=== PATIENT | male | born 1930 | race Caucasian/White ===

== ENCOUNTER 2016-02-26 13:00 | Outpatient (RCR) | payer MEDICARE, OTHER | END 2016-03-08 | LOC: M CR 13:00 | PROVIDERS: ATTEND Internal Medicine Cardiovascular Disease | DX: Z98.61 Coronary angioplasty status (principal) ==

== ENCOUNTER 2017-11-08 07:34 | Outpatient (CLI) | payer MEDICARE, OTHER ==
[2017-11-08] MEDS: IRON SUCROSE 25 MG in NS 50 ML IV (08:00)
[2017-11-08] MEDS: IRON SUCROSE 375 MG in NS 250 ML IV (09:28)
== END 2017-11-08 13:50 | disposition home or self-care (01) ==
LOC: M INFU 07:34
DX: D50.9 Iron deficiency anemia, unspecified (principal)
CPT/HCPCS: J1756

== ENCOUNTER → 2017-12-14 | Outpatient (REF) | payer MEDICARE, OTHER ==
[2017-12-15 14:37] LABS: FERRITIN 359 NG/ML (26-388); FOLATE > 24.0 NG/ML; IRON (FE) 35 UG/DL (65-175); PERCENT SATURATION 15.2 % (19.7-50.0); TOTAL IRON BINDING CAPACITY 230 UG/DL (250-450)
[2017-12-15 14:59] LABS: VITAMIN B12 LEVEL 755 PG/ML
== END ==
LOC: M LAB REF 13:02
DX: D50.9 Iron deficiency anemia, unspecified (principal)
CPT/HCPCS: 82746

== ENCOUNTER → 2017-12-19 | Outpatient (CLI) | payer MEDICARE, OTHER | LOC: M RAD 12:45 | DX: Z01.818 Encounter for other preprocedural examination (principal); N17.9 Acute kidney failure, unspecified; I12.9 Hypertensive chronic kidney disease with stage 1 through stage 4 chronic kidney disease, or unspecified chronic kidney disease; R60.0 Localized edema; N18.9 Chronic kidney disease, unspecified | CPT/HCPCS: G0365 ==

== ENCOUNTER 2018-01-05 07:12 | Outpatient (CLI) | payer MEDICARE, OTHER ==
[2018-01-05] MEDS: IRON SUCROSE 25 MG in NS 50 ML IV (07:54)
[2018-01-05] MEDS: IRON SUCROSE 375 MG in NS 250 ML IV (08:51)
== END 2018-01-05 12:20 | disposition home or self-care (01) ==
LOC: M INFU 07:12
DX: D50.9 Iron deficiency anemia, unspecified (principal); N17.9 Acute kidney failure, unspecified; E11.22 Type 2 diabetes mellitus with diabetic chronic kidney disease; I12.9 Hypertensive chronic kidney disease with stage 1 through stage 4 chronic kidney disease, or unspecified chronic kidney disease; M1A.30X0 Chronic gout due to renal impairment, unspecified site, without tophus (tophi); N25.81 Secondary hyperparathyroidism of renal origin; R60.0 Localized edema; Z79.2 Long term (current) use of antibiotics; Z79.4 Long term (current) use of insulin; Z79.01 Long term (current) use of anticoagulants; Z79.891 Long term (current) use of opiate analgesic; Z79.899 Other long term (current) drug therapy; Z88.0 Allergy status to penicillin; Z88.8 Allergy status to other drugs, medicaments and biological substances
CPT/HCPCS: J1756

== ENCOUNTER → 2018-03-07 | Outpatient (CLI) | payer MEDICARE, OTHER ==
[~2018-03-07] MED LIST: ALLO100T PO; ASPI81TA85 PO; CALC1CAP31 PO; CALTCHW5 PO; CARV25TA PO; ELIQ2.5T PO; EZET10TA PO; GLIP2.5T6 PO; INSUHUMDS SC; IRON27TA2 PO; LOSA25TA14 PO; MULTCAP PO; SIMV40TA2 PO; TORS20TA2 PO
--- NOTE | 2018-03-07 11:52 | REP ---
Clinical: Cough. Technique: PA and lateral. Comparison: None. Findings: Cardiomegaly with evidence for prior pacemaker, sternotomy, CABG, and aortic valve stent repair. The lung anthony demonstrate diffuse increased interstitial markings with indistinct central pulmonary vasculature suggesting the possibility of pulmonary vascular congestion and interstitial edema. Basilar atelectasis cannot be excluded. No effusion or pneumothorax. Skeletal structures are grossly intact. Impression: Cardiomegaly and chronic appearing changes. Superimposed pulmonary vascular congestion/interstitial edema suspected. Electronically Signed by Jesús Burton MD 03/07/2018 11:43 A
== END ==
LOC: M SMT 11:28
PROVIDERS: ATTEND Internal Medicine Nephrology
DX: N18.4 Chronic kidney disease, stage 4 (severe) (principal); R60.0 Localized edema; R05 Cough

== ENCOUNTER 2018-04-17 09:28 | Day surgery (SDC) | payer MEDICARE, OTHER ==
[~2018-04-17] VITALS: Ht 167.6 cm; Wt 75.7 kg
[~2018-04-17 09:28] MED LIST changes: +IRON1TAB PO; +NS 1,000 ML IV ONE; +VITATAB11 PO
--- NOTE | 2018-04-17 11:31 | ROOR ---
Patient Name: Shaheed Lee Procedure Date: 04/17/2018 11:13 AM Date of : 1930 Age: 87 Room: [facility] Gender: Male Note Status: Finalized Procedure: Upper GI endoscopy Indications: Iron deficiency anemia Providers: Jerry PINA MD Referring MD: YOBANI WHITAKER MD Requesting Provider: Medicines: Monitored Anesthesia Care Complications: No immediate complications. Procedure: Pre-Anesthesia Assessment: - The heart rate, respiratory rate, oxygen saturations, blood pressure, adequacy of pulmonary ventilation, and response to care were monitored throughout the procedure. The Endoscope was introduced through the mouth, and advanced to the second part of duodenum. The upper GI endoscopy was accomplished without difficulty. The patient tolerated the procedure well. Findings: One mild (non-circumferential scarring) stenosis was found at the gastroesophageal junction. This stenosis measured 1 cm (in length). The stenosis was traversed. This was biopsied with a cold forceps for histology. Moderately severe esophagitis was found at the gastroesophageal junction. Biopsies were taken with a cold forceps for histology. A small hiatal hernia was present. The entire examined stomach was normal. The examined duodenum was normal. Impression: - Moderately severe reflux esophagitis with mild to moderate esophageal stenosis. Biopsied. Rule out Rodriguez's esophagus. Biopsied. - Small hiatal hernia. - Normal stomach. - Normal examined duodenum. Recommendation: - Use Prilosec (omeprazole) 40 mg PO daily. - Telephone endoscopist for pathology results in 2 weeks. Jerry Pina MD Jerry PINA MD 04/17/2018 11:31:24 AM This report has been signed electronically. Number of Addenda: 0 Note Initiated On: 04/17/2018 11:13 AM Estimated Blood Loss: Estimated blood loss: none.
[2018-04-17] MEDS ORDERED: LIDOCAINE 2% INJ 100 MG/5 ML SDV (FOR ANES.) As Ordered ONE (11:38)
[2018-04-17] MEDS ORDERED: PROPOFOL 500 MG/50 ML VIAL As Ordered ONE (11:38)
--- NOTE | 2018-04-17 11:50 | ROOR ---
Patient Name: hSaheed Lee Procedure Date: 04/17/2018 11:14 AM Date of : 1930 Age: 87 Room: [facility] Gender: Male Note Status: Finalized Procedure: Colonoscopy Indications: Heme positive stool, Iron deficiency anemia (possible). Low TIBC Providers: Jerry PINA MD Referring MD: YOBANI WHITAKER MD Requesting Provider: Medicines: Monitored Anesthesia Care Complications: No immediate complications. Procedure: Pre-Anesthesia Assessment: - The heart rate, respiratory rate, oxygen saturations, blood pressure, adequacy of pulmonary ventilation, and response to care were monitored throughout the procedure. The Colonoscope was introduced through the anus and advanced to the cecum, identified by appendiceal orifice and ileocecal valve. The colonoscopy was performed without difficulty. The patient tolerated the procedure well. The quality of the bowel preparation was good. Findings: The perianal and digital rectal examinations were normal. A 5 mm polyp was found in the splenic flexure. The polyp was sessile. The polyp was removed with a cold snare. Resection and retrieval were complete. Mild sigmoid diverticulosis and small internal hemorrhoids. Localized mild mucosal changes were found in the distal rectum. The exam was otherwise without abnormality on direct and retroflexion views. Impression: - One 5 mm polyp at the splenic flexure, removed with a cold snare. Resected and retrieved. - Mild sigmoid diverticulosis and small internal hemorrhoids. - Minimal radiation proctitis. - The colon examination was otherwise normal on direct and retroflexion views. Recommendation: - Resume Eliquis (apixaban) at prior dose today. Refer to managing physician for further adjustment of therapy. Jerry Pina MD Jerry PINA MD 04/17/2018 11:49:57 AM This report has been signed electronically. Number of Addenda: 0 Note Initiated On: 04/17/2018 11:14 AM Estimated Blood Loss: Estimated blood loss: none.
[2018-04-17 12:20] VITALS: BP 132/67
== END 2018-04-17 12:22 | disposition home or self-care (01) ==
LOC: M OPP 09:28
PROVIDERS: ATTEND Internal Medicine Gastroenterology
DX: D12.6 Benign neoplasm of colon, unspecified (principal); K62.7 Radiation proctitis; R19.5 Other fecal abnormalities; D50.9 Iron deficiency anemia, unspecified; K57.30 Diverticulosis of large intestine without perforation or abscess without bleeding; K22.2 Esophageal obstruction; K21.0 Gastro-esophageal reflux disease with esophagitis; K44.9 Diaphragmatic hernia without obstruction or gangrene; I25.2 Old myocardial infarction; Z79.899 Other long term (current) drug therapy; Z80.0 Family history of malignant neoplasm of digestive organs; Z95.0 Presence of cardiac pacemaker; Z95.4 Presence of other heart-valve replacement

== ENCOUNTER 2018-04-19 15:40 | Inpatient (IN) | payer MEDICARE, OTHER ==
[~2018-04-19] VITALS: Ht 170.2 cm; Wt 77.3 kg
[~2018-04-19 15:40] MED LIST changes: -NS 1,000 ML IV ONE
[2018-04-19] MEDS ORDERED: OMEP-218 PO (15:59)
[2018-04-19 16:58] LABS: HEMATOCRIT 31.4 % (42.0-52.0); HEMOGLOBIN 10.1 g/dl (13.5-17.5); MEAN CORPUSCULAR HEMOGLOBIN 31.7 pg (27.0-33.0); MEAN CORPUSCULAR HGB CONC 32.2 g/dl (32.0-36.5); MEAN CORPUSCULAR VOLUME 98.4 fl (80.0-96.0); PLATELET COUNT, AUTOMATED 134 10^3/uL (150-450); RED BLOOD COUNT 3.19 10^6/uL (4.30-6.10); WHITE BLOOD COUNT 17.4 10^3/uL (4.0-10.0)
[2018-04-19 17:04] LABS: INR 1.7; PROTHROMBIN TIME 20.3 SECONDS (12.1-14.4)
[2018-04-19 17:06] LABS: ALBUMIN 3.3 GM/DL (3.2-5.2); BILIRUBIN,DIRECT 0.2 MG/DL (0.0-0.2); BILIRUBIN,TOTAL 0.5 MG/DL (0.2-1.0); CALCIUM LEVEL 8.3 MG/DL (8.8-10.2); CREATININE FOR GFR 7.54 MG/DL (0.70-1.30); GLOMERULAR FILTRATION RATE 7.3 (>35); POTASSIUM SERUM 4.7 MEQ/L (3.5-5.1); TOTAL PROTEIN 6.3 GM/DL (6.4-8.2)
[2018-04-19 17:41] LABS: ANISOCYTOSIS 2+; ATYPICAL LYMPH 1 % (0-5); EOSINOPHILS 2 % (0-5); MONOCYTES 1 % (0-8); MYELOCYTES 1 % (0-0); NEUTROPHILS 75 % (35-75); PLATELET ESTIMATE DECREASED (NORMAL); TOXIC VACUOLATION 1+
[2018-04-19 17:42] LABS: POIKILOCYTOSIS 1+
[2018-04-19 17:43] LABS: POLYCHROMASIA 1+
[2018-04-19] MEDS ORDERED: ONDANSETRON 4MG/2ML VIAL (J2405) IV ONE (17:45)
[2018-04-19] MEDS: NS 1,000 ML IV SCH ×3 (17:50→18:22)
--- NOTE | 2018-04-19 18:15 | REP ---
PA and lateral chest: Comparison is 03/07/2018. There is chronic cardiomegaly, unchanged. There is a dual-chamber pacemaker, unchanged. There are sternotomy wires, unchanged. There has been transcatheter replacement of the aortic valve, unchanged. There is chronic interstitial coarsening, unchanged, nonspecific, fibrosis versus chronic vascular engorgement. There is an 80 mm noncalcified nodule in the apex of the left lung. Consider chest CT for further evaluation. Impression: Chronic findings as described. 8 mm left upper lobe lung nodule. Consider chest CT for further evaluation. Electronically Signed by Jonathon Porter MD 04/19/2018 06:08 P
[2018-04-19] MEDS ORDERED: LEVOTAB10 PO (18:32)
[2018-04-19] MEDS ORDERED: VITMTA PO (18:32)
[2018-04-19] MEDS ORDERED: CALTTAB5 PO (18:33)
--- NOTE | 2018-04-19 19:29 | ECGEPIP ---
Stationary ECG Study [facility] - ED Test Date: 2018-04-19 Pat Name: PURVI BENITEZ Department: Room: - Gender: M Clinical Nursing Director: [facility] : 1930 Requested By: Rosalia Reeder Order Number: [id number] Reading MD: Abhay Cortez Measurements Intervals [place] Rate: 73 P: 74 ND: 150 QRS: 68 QRSD: 181 T: 251 QT: 532 QTc: 587 Interpretive Statements ELECTRONIC VENTRICULAR PACEMAKER NO PRIORS FOR COMPARISON Electronically Signed On 04-19-2018 19:29:41 EDT by Abhay Cortez
[2018-04-19] MEDS ORDERED: GLUCAGON FOR INJ 1 MG VIAL (J1610) SC PRN (21:00)
[2018-04-19] MEDS ORDERED: GLUCOSE 4 GM CHEW TABLET PO PRN (21:00)
[2018-04-19] MEDS ORDERED: CARVedilol 12.5 MG TAB PO SCH (21:00)
[2018-04-19] MEDS ORDERED: DEXTROSE 50% 50 ML SYRINGE IV PRN (21:00)
[2018-04-19] MEDS ORDERED: ONDANSETRON 4MG/2ML VIAL (J2405) IV PRN (21:15)
--- NOTE | 2018-04-19 21:26 | REPVR ---
EXAM: US Retroperitoneal Limited, Kidneys EXAM DATE/TIME: 04/19/18 (8:26pm) CLINICAL HISTORY: 87 year old male with abnormal renal function tests. Renal failure. TECHNIQUE: Real-time ultrasound of the retroperitoneum with image documentation. Examination was focused on the kidneys. COMPARISON: US RENAL of 01/25/12 FINDINGS: RIGHT KIDNEY --- The right kidney measures 9.3 cm in length. No hydronephrosis is noted. Echogenic texture. No upper tract stones are identified. Two renal cysts --- Large simple lower pole cyst (3.9 x 3.5 x 4.0 cm size) (3.8 cm avg. size) Small lower pole cyst (7 x7 x 6 mm size) LEFT KIDNEY --- The left kidney measures 11.5 cm in length. No hydronephrosis is noted. Echogenic texture. No upper tract stones are identified. URINARY BLADDER --- Carrion in place. Not distended. IMPRESSION: No acute pathology. No hydronephrosis. The right kidney is slightly smaller than the left kidney. 2 simple right lower renal pole cysts. Carrion catheter in place. Electronically signed by: Carmen Powell On 04/19/2018 21:26:24 PM
--- NOTE | 2018-04-19 22:16 | REPVR ---
EXAM: CT Chest Without Contrast EXAM DATE/TIME: 04/19/18 (10:05pm) CLINICAL HISTORY: 87 year old male. Lung nodule. TECHNIQUE: Axial computed tomography images of the chest without intravenous contrast. All CT scans at this facility use at least one of these dose optimization techniques: automated exposure control; mA and/or kV adjustment per patient size (includes targeted exams where dose is matched to clinical indication); or iterative reconstruction. Coronal and sagittal reformatted images were created and reviewed. MIP reconstructed images were created and reviewed. COMPARISON: Chest films of 04/19/18 FINDINGS: Lungs: No consolidation. Small calcified GARRET granuloma, posterolaterally. No significant lung mass nor nodule is appreciated. Pleural space: No pneumothorax. Minimal bilateral pleural effusions. Heart: Moderate ardiomegaly. Cardiac electrodes in place. No pericardial effusion. Stent graft in the proximal ascending thoracic aorta. Aorta: Normal. No aortic aneurysm. Lymph nodes: Unremarkable. No enlarged lymph nodes. Bones/joints: No acute fracture. Previous sternotomy. Soft tissues: Unremarkable. IMPRESSION: No acute findings. No significant pulmonary nodule nor mass. Cardiomegaly. Proximal aortic stent graft. Cardiac electrodes in place. Electronically signed by: Carmen Powell On 04/19/2018 22:16:27 PM
[2018-04-19 23:35] VITALS: BP 105/54
[2018-04-20] MEDS: APIXABAN 2.5 MG TAB (ELIQUIS) PO SCH ×3 (00:15→21:46)
[2018-04-20] MEDS: SIMVASTATIN 40 MG TAB PO SCH ×2 (00:15→21:47)
[2018-04-20] MEDS: ASPIRIN 81 MG ENTERIC TAB PO SCH ×2 (00:15→21:46)
[2018-04-20] MEDS: OMEPRAZOLE 20 MG CAP PO SCH ×3 (00:15→21:47)
--- NOTE | 2018-04-20 01:15 | HPE ---
DATE OF ADMISSION: 04/19/2018 CHIEF COMPLAINT: Generalized weakness, nausea, oliguric for the past 24 to 48 hours. HISTORY OF PRESENT ILLNESS: The patient is an 87-year-old male with significant past medical history of coronary artery disease (CAD) status post coronary artery bypass grafting (CABG), diabetes, gastroesophageal reflux disease (GERD), Rodriguez's esophagus, atrial fibrillation (AFib) status post pacemaker on Eliquis, gout and hypertension. The patient recently had a and esophagogastroduodenoscopy (EGD) and colonoscopy four days ago. Over the past two days he has produced very little urine. He has felt generalized weakness, an episode of nonbloody, nonbilious vomiting. He presented to his primary care provider who noted his creatinine was 7, sent him to the emergency room (ER) for abnormal laboratories. His baseline creatinine is unknown. However, the patient had a similar episode in the past when he had a hernia repair and was hypotensive post procedure and developed subsequent acute tubular necrosis (ATN) needing dialysis for a week back several years ago. Upon presentation to the emergency room to see his primary care provider the patient's blood pressure was noted to be in the 80s/60s. He denies any cough, chest pain, shortness of breath, abdominal pain. He did have an episode of diarrhea this morning as well per the patient. He appears to be in oliguric renal failure possibly secondary to acute tubular necrosis (ATN) versus acute interstitial nephritis (AIN). The patient states during the last episode he also had a rash. He has not had any fevers but he does have a diffuse rash again. The rash is sort of chronic. He was on prednisone which was stopped for his procedure as his sugars were uncontrolled with the prednisone and the rash recurred after discontinuation of the prednisone. At that point in time the differential is oliguric renal failure possibly secondary to acute tubular necrosis (ATN) versus acute interstitial nephritis (AIN). Will rule out a urinalysis (UA). PAST MEDICAL HISTORY: See history of the present illness (HPI). PAST SURGICAL HISTORY: 1. Coronary artery disease (CAD) status post coronary artery bypass grafting (CABG). 2. Aortic valve repair. 3. Pacemaker placement. HOME MEDICATIONS: Include: - torsemide - allopurinol - glipizide - iron - Eliquis - aspirin - calcitriol - Coreg - Zetia - omeprazole - Zocor ALLERGIES: To PENICILLINS and PRASUGREL. SOCIAL HISTORY: He is a former smoker. Denies alcohol or illicit drug use. FAMILY HISTORY: Family history of diabetes and coronary artery disease. REVIEW OF SYSTEMS: A 12-point review of systems was completed, all of which were negative except those listed in the history of the present illness. VITAL SIGNS ON ADMISSION: Temperature 97, pulse 75, respirations 20, blood pressure 94/49, saturating at 98% on room air. PHYSICAL EXAMINATION: General: He is well nourished, in no apparent distress. Head is normocephalic, atraumatic. Eyes: Extraocular movements are intact. Pupils equal, round, reactive to light. Neck is supple. No jugular venous pressure (JVP). Lungs: Clear to auscultation. No crackles, wheezes, rales or rhonchi. Cardiovascular: Regular rate and rhythm. Normal S1, S2. No murmurs, gallops, or rubs. Skin: Intact. No rashes, lesions or breakdown. Neurological: Alert and oriented (A and O) times three. No focal deficits appreciated on examination. Abdomen: Soft, nontender, nondistended, positive bowel sounds. No rebound or guarding. Extremities: No pitting edema or calf tenderness. LABORATORIES AND IMAGING COMPLETED IN THE EMERGENCY ROOM: His white blood cell (WBC) shows a white count of 17, hemoglobin and hematocrit (H and H) of 10/31, platelet count of 134. Coagulation panel (coags): INR of 1.7. Chemistries: Sodium 133, chloride 94, BUN and creatinine 94/7.5, baseline creatinine is unknown. Bicarbonate of 27. Liver function tests (LFTs) within normal limits. Urine osmolality of 324. Chest x-ray shows chronic findings: An 8 mm left upper lobe nodule. Renal ultrasound pending. ASSESSMENT AND PLAN: 1. Oliguric renal failure possibly secondary to acute tubular necrosis (ATN) versus acute interstitial nephritis (AIN) with a rash versus possible rule out urinary tract infection (UTI). Will send a urinalysis (UA), urine electrolytes, sodium, potassium, chloride, urine eosinophils. Will hold all blood pressure medications. Will hold torsemide for now. Will fluid hydrate. Will send a uric acid. Will get a renal consult in the a.m. in case the patient does require dialysis. Will hold all nephrotoxic medications. If this is believed to be acute interstitial nephritis (AIN), as the patient does have a rash and eosinophils, the omeprazole which was recently started twice a day for Rodriguez's esophagus may need to be discontinued as it may be the offending agent. 2. Coronary artery disease (CAD) status post coronary artery bypass grafting (CABG) stable. Continue aspirin. Coreg being held. 3. Atrial fibrillation (AFib) status post pacemaker. Continue Eliquis renally doses. 4. Diabetes. Hold glipizide. Insulin sliding scale. 5. Gastroesophageal reflux disease (GERD) and Rodriguez's esophagus. Continue proton pump inhibitor (PPI) twice a day for now. 6. Gout. Continue allopurinol. 7. Supportive deep vein thrombosis (DVT) prophylaxis: He is on Eliquis. 8. Gastrointestinal (GI) prophylaxis: He is on omeprazole twice a day. 9. Diet: Dialysis diet.
[2018-04-20] MEDS: NS 1,000 ML IV SCH ×6 (04:00→21:10)
[2018-04-20 06:00] VITALS: BP 98/42
[2018-04-20 06:56] LABS: HEMOGLOBIN 9.5 g/dl (13.5-17.5); MEAN CORPUSCULAR HEMOGLOBIN 31.5 pg (27.0-33.0); MEAN CORPUSCULAR HGB CONC 31.7 g/dl (32.0-36.5); MEAN CORPUSCULAR VOLUME 99.3 fl (80.0-96.0); PLATELET COUNT, AUTOMATED 113 10^3/uL (150-450); RED BLOOD COUNT 3.02 10^6/uL (4.30-6.10); WHITE BLOOD COUNT 14.8 10^3/uL (4.0-10.0)
[2018-04-20 07:31] LABS: CALCIUM LEVEL 8.2 MG/DL (8.8-10.2); CREATININE FOR GFR 8.14 MG/DL (0.70-1.30); GLOMERULAR FILTRATION RATE 6.7 (>35); MAGNESIUM LEVEL 2.5 MG/DL (1.8-2.4); PHOSPHORUS LEVEL 2.9 MG/DL (2.5-4.9); POTASSIUM SERUM 4.8 MEQ/L (3.5-5.1)
[2018-04-20] MEDS: MULTIVITAMINS/MINERALS THERAP 1 TAB PO SCH (09:06)
[2018-04-20] MEDS: HumaLOG INSULIN (NovoLOG) PER UNIT SC SCH ×4 (09:06→21:00)
[2018-04-20] MEDS: CALCITRIOL 0.25 MCG CAP (S0169) PO SCH (09:06)
[2018-04-20] MEDS: EZETIMIBE 10 MG TAB (ZETIA) PO SCH (09:06)
[2018-04-20] MEDS ORDERED: LIDOCAINE 2% MDV 20 ML VIAL As Ordered ONE ×2 (10:11→10:52)
[2018-04-20] MEDS ORDERED: HEPARIN 1,000 UNITS/ML 10ML VIAL (FOR RADIOLOGY& DIALYSIS ONLY) As Ordered ONE (10:11)
[2018-04-20] MEDS ORDERED: ISOVUE-300 61% 50ML VIAL (Q9967) As Ordered ONE (10:45)
[2018-04-20 14:00] VITALS: BP 109/63
--- NOTE | 2018-04-20 14:08 | CR ---
DATE OF CONSULTATION: 04/20/2018 REQUESTING PROVIDER: Dr. Ishaan Brownlee Mr. Lee is an 87-year-old gentleman who was admitted to [facility] last evening. He has multiple chronic medical problems, including history of type 2 diabetes, hypertension, coronary artery disease and gastroesophageal reflux disease. He recently underwent colonoscopy earlier this week. The patient reports that the day after colonoscopy he did not feel good and since then he has minimal urine output. He was seen by his primary physician yesterday and labs showed a creatinine of 7.0, due to which he was sent to the emergency room. The patient has known history of about stage IV of chronic kidney disease, even at baseline, and has been referred to vascular surgery for AV fistula creation. He has been hydrated through the night with IV fluid, however, he still has minimal urine output and no improvement in kidney function. The patient has a history of similar episode of acute renal failure when he had his hernia repair last year. A nephrology consultation was requested and the patient is seen this morning. PAST MEDICAL AND SURGICAL HISTORY: Significant for: 1. Type 2 diabetes. 2. Hypertension. 3. Coronary artery disease, status post coronary artery bypass graft (CABG). 4. Gastroesophageal reflux disease. 5. Atrial fibrillation. 6. History of pacemaker placement on chronic Eliquis anticoagulation therapy. 7. Gout. 8. History of stage IV of chronic kidney disease. 9. Prior history of acute renal failure. PAST SURGICAL HISTORY: Significant for CABG, pacemaker placement, and aortic valve replacement. He also had a Perma-Cath in the past for dialysis. MEDICATIONS: Home medications include: - torsemide - allopurinol - glipizide - Eliquis - aspirin - calcitriol - Coreg - Zetia - omeprazole - Zocor - iron ALLERGIES: He has allergy to PENICILLIN and PRASUGREL. PERSONAL AND SOCIAL HISTORY: The patient is a former smoker and has no history of alcohol or drug use. FAMILY HISTORY: Significant for diabetes and coronary artery disease. There is no family history for end-stage renal disease. REVIEW OF SYSTEMS: Denies any fever or chills. Ears, nose and throat are significant for [id number] but no sore throat or sinus problems. He denies any nosebleed. Cardiovascular system is negative for dyspnea or chest pain. Respiratory system negative for cough or hemoptysis. Gastrointestinal system is negative for nausea, vomiting or diarrhea. Genitourinary system is significant for decreased urine output. He denies any flank pain or hematuria. Musculoskeletal system negative for leg edema. He denies any use of nonsteroidal antiinflammatory drugs (NSAIDs). Endocrine system is significant for type 2 diabetes and secondary hyperparathyroidism. Hematological system is significant for chronic anticoagulation with Eliquis. Neurological system is negative for seizures or stroke. Psychosocial system negative for depression or anxiety. Skin is negative for ulcers, but he does report some mild rash since his procedure. PHYSICAL EXAMINATION: The patient is awake and alert at the time of my visit. He is hard of hearing and currently not using a hearing aid. Temperature is 99.3 degrees Fahrenheit, heart rate 80 per minute and respiratory rate 20 per minute. Blood pressure 98/42 mmHg and oxygen saturation 93% on room air. His head is atraumatic. There is no oral thrush or ulcers. Ears, nose and throat are unremarkable. Extraocular muscles are intact. Neck is supple and jugular venous distention (JVD) is only mildly elevated. There is no carotid bruit or thyroid enlargement. Heart sounds are regular at present and without a pericardial friction rub. Lungs sound clear to auscultation bilaterally. Abdomen is soft and nontender and without palpable organomegaly. Bowel sounds are normal. Extremities have no cyanosis or clubbing. Neurologically, he is awake, alert and oriented. LABORATORY DATA: Initial labs showed a WBC count 17.4, hemoglobin 10.1 and hematocrit 31.4. Platelets 134. Today WBC count is 14.8, hemoglobin 9.5 and hematocrit 30. Platelets 113. Sodium 133, potassium 4.8, CO2 26, BUN 103 and creatinine 8.14. Glucose 215, calcium 8.2 and phosphorus 2.9. Magnesium level is 2.5 today. A urinalysis has not been done. INR is 1.70 today. Chest x-ray was unremarkable other than an 8 mm left upper lobe nodule. He had a CT scan done, which did not show any significant abnormality and nodule was felt to be calcified granuloma. He had a renal ultrasound, which showed the right kidney 9.8 and left kidney 11.5 cm without any hydronephrosis. PROBLEMS: 1. Acute renal failure superimposed on chronic kidney disease. The patient has stage IV chronic kidney disease at baseline. He is already in the process of getting AV fistula placed. He has prior history of acute renal failure when he required temporary dialysis. Now he has oliguric acute renal failure, which has not improved so far with IV fluid given overnight. I feel that he probably has developed acute tubular necrosis. We will get a urine analysis this morning, which has not been done so far. I have discussed with the patient and explained to him about potential need for dialysis and he is willing to proceed. We will get a Perma-Cath placed while we are hoping that his kidneys might improve. I am not very optimistic in view of advanced chronic kidney disease at baseline. At present, his electrolytes are stable and volume status well-compensated. He does not have any metabolic acidosis and we will probably dialyze him in the next 24 hours if his kidney function does not improve. Dr. Danielson is being requested for Perma-Cath placement. 2. Anemia. The patient does have chronic kidney disease at baseline and probably anemia is related to his chronic kidney disease. He also has history of acute renal failure last year and now he has acute renal failure again. We will watch and monitor his anemia at present without any urgent intervention. 3. History of gout. His uric acid level is 8.0. Probably this is related to acute renal failure and he does not have any symptoms of acute gout. He should continue with his chronic allopurinol therapy. Thank you for involving me in the care of Mr. Lee. We will follow him along with you.
--- NOTE | 2018-04-20 16:37 | IPNPDOC ---
Text Note Date of Service The patient was seen on 04/20/18. NOTE Subjective: Patient is an 87-year-old male with a PMHx of A. fib (on Eliquis), CAD s/p CABG, HTN, DM2, Gout, GERD / Rodriguez's esophagus who presented to the ER with complaints of generalized weakness and decreased urine production. Patiently recently had an EGD and colonoscopy about 4 days ago and since that point has been experiencing symptoms. His history is also significant for a one- week requirement of dialysis after he had a hernia operation that caused him to develop ATN. Upon arrival to the emergency room, patient was found to have an elevated creatinine and was admitted to hospitalist service for further evaluation and treatment. Nephrology was called on consultation. Patient was seen and examined at the bedside. Currently she denies any chest pain, shortness of breath or palpitations. He denies any swelling of his legs. Denies any nausea, vomiting, any abdominal pain, constipation, diarrhea. Vision. Has had a Carrion catheter placed in the emergency room and there has been very limited output. Objective: Vitals (See below) General: Lying in bed, no acute distress, comfortable, AAOx3 HEENT: NC, AT CVS: RRR, +S1S2 Lungs: Fair air entry b/l, -w/r/r Abdomen: Soft, ND, NT Extremities: - Edema, - Calf tenderness Assessment and plan: 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 - likely 2/2 pre-renal etiology, possibly 2/2 intra-rental etiology - 2/2 ATN - Patient has had a history of hemodialysis for ATN after hernia repair operation - Patient has been following with nephrology as an outpatient and has indicated that they wanted him to have an AV fistula placed for dialysis - Currently, patient is not having any evidence of fluid overload - Lab work without any electrolyte abnormalities, acid-base abnormalities or uremia - Will continue with IV fluid hydration - Nephrology is on consultation. Will consult vascular surgery for PermaCath placement - Patient will ultimately require hemodialysis; continue scheduled for tomorrow - Vascular surgery will consider placement of fistula tomorrow or over the weekend Leukocytosis - possibly 2/2 reactive etiology - Remains afebrile and hemodynamically stable Macrocytic anemia - No evidence of bleeding - Will continue to follow Hg trend - Will check B12 and Folate Thrombocytopenia - etiology unclear - No evidence of bleeding - Will continue to follow trend Hyponatremia - possibly 2/2 hypotonic hypervolemic etiology - Physical does not appear to be fluid overloaded - Patient will be scheduled for hemodialysis tomorrow A. fib - Carvedilol has been discontinued - Will start metoprolol tartrate with holding parameters - Currently on full anticoagulation with Eliquis CAD s/p CABG - c/w ASA HTN - BP well controlled - Carvedilol on Hold; will start Metoprolol Tartrate DLP - c/w Ezetimibe and Simvastatin DM2 - c/w ISS Gout - Currently not on medications GERD / Rodriguez's esophagus - c/w Omeprazole DVT prophylaxis - On full anticoagulation with Eliquis VS,Fishbone, I+O VS, Fishbone, I+O Laboratory Tests 04/19/18 16:34 Red Blood Count 3.19 L, Mean Corpuscular Volume 98.4 H, Mean Corpuscular Hemoglobin 31.7, Mean Corpuscular Hemoglobin Concent 32.2, Red Cell Distribution Width 17.8 H, Lymphocytes # (Auto) 04/20/18 06:24 Red Blood Count 3.02 L, Mean Corpuscular Volume 99.3 H, Mean Corpuscular Hemoglobin 31.5, Mean Corpuscular Hemoglobin Concent 31.7 L, Red Cell Distribution Width 17.5 H, Calcium Level 8.2 L Vital Signs Date Time Temp Pulse Resp B/P (MAP) Pulse Ox O2 Delivery O2 Flow Rate FiO2 04/20/18 14:00 99.7 72 18 109/63 (78) 92 04/19/18 20:36 Room Air I&O- Last 24 Hours up to 6 AM 04/20/18 06:00 Intake Total 120 ml Output Total 50 ml Balance 70 ml ANGEL LIANG MD Apr 20, 2018 16:37
[2018-04-20] MEDS: METOPROLOL TART 12.5 MG PER 1/2 TAB PO SCH (17:17)
[2018-04-20 17:45] LABS: FOLATE > 24.0 NG/ML (>5.4); VITAMIN B12 LEVEL 612 PG/ML (247-911)
[2018-04-20 22:00] VITALS: BP 93/52
[2018-04-21 06:00] VITALS: BP 129/58
[2018-04-21] MEDS: METOPROLOL TART 12.5 MG PER 1/2 TAB PO SCH ×4 (06:26→17:44)
[2018-04-21] MEDS: MULTIVITAMINS/MINERALS THERAP 1 TAB PO SCH (06:27)
[2018-04-21] MEDS: OMEPRAZOLE 20 MG CAP PO SCH ×2 (06:27→22:01)
[2018-04-21] MEDS: NS 1,000 ML IV SCH (06:27)
[2018-04-21] MEDS: APIXABAN 2.5 MG TAB (ELIQUIS) PO SCH ×2 (06:27→22:01)
[2018-04-21] MEDS: EZETIMIBE 10 MG TAB (ZETIA) PO SCH (06:28)
[2018-04-21 07:10] LABS: MEAN CORPUSCULAR HEMOGLOBIN 31.9 pg (27.0-33.0); MEAN CORPUSCULAR HGB CONC 32.1 g/dl (32.0-36.5); MEAN CORPUSCULAR VOLUME 99.3 fl (80.0-96.0); PLATELET COUNT, AUTOMATED 106 10^3/uL (150-450); RED BLOOD COUNT 2.82 10^6/uL (4.30-6.10)
[2018-04-21 07:43] LABS: CREATININE FOR GFR 8.97 MG/DL (0.70-1.30); POTASSIUM SERUM 4.7 MEQ/L (3.5-5.1)
[2018-04-21] MEDS: HumaLOG INSULIN (NovoLOG) PER UNIT SC SCH ×4 (08:07→21:00)
[2018-04-21] MEDS ORDERED: diphenhydrAMINE 25 MG CAP PO ONE (08:30)
[2018-04-21 10:59] LABS: CHOLESTEROL RISK RATIO 5.437 (<5); PERCENT SATURATION 16.9 % (19.7-50.0)
[2018-04-21] MEDS ORDERED: HEPARIN 1,000 UNITS/ML 10ML VIAL (FOR RADIOLOGY& DIALYSIS ONLY) XX ONE (11:30)
[2018-04-21 12:04] LABS: HEMOGLOBIN A1c 8.7 %
[2018-04-21] MEDS ORDERED: PERCOCET 5MG/325MG TAB PO ONE (12:15)
[2018-04-21 14:00] VITALS: BP 127/57
--- NOTE | 2018-04-21 17:08 | IPNPDOC ---
Text Note Date of Service The patient was seen on 04/21/18. NOTE Subjective: Patient is an 87-year-old male with a PMHx of A. fib (on Eliquis), CAD s/p CABG, HTN, DM2, Gout, GERD / Rodriguez's esophagus who presented to the ER with complaints of generalized weakness and decreased urine production. Patiently recently had an EGD and colonoscopy about 4 days ago and since that point has been experiencing symptoms. His history is also significant for a one- week requirement of dialysis after he had a hernia operation that caused him to develop ATN. Upon arrival to the emergency room, patient was found to have an elevated creatinine and was admitted to hospitalist service for further evaluation and treatment. Nephrology was called on consultation. Patient was interviewed and examined in his hospital room. He denies any chest pain/pressure, palpitations or difficulty breathing. He denies any symptoms of gout. He denies N/V or abdominal pain. He does complain of being itchy and has received Benadryl with good relief. Objective: Vitals (See below) General: Alert and oriented, sitting upright in his hospital bed, in no acute distress HEENT: Normocephalic, atraumatic, EOMI CVS: regular rate and rhythm, no murmurs gallops or rubs Lungs: Clear to auscultation, no wheezing, rales and rhonci Chest: PermCath placement noted, no inappropriate erythema or drainage Abdomen: Soft, nontender, no masses Extremities: No LE edema, no calf tenderness bilaterally Assessment and plan: 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 - likely 2/2 pre-renal etiology, possibly 2/2 intra-rental etiology - 2/2 ATN - Patient has had a history of hemodialysis for ATN after hernia repair operation in the past - Patient has been following with nephrology as an outpatient and has indicated that they wanted him to have an AV fistula placed for dialysis - Currently, patient is not having any evidence of fluid overload, no JVD, LE edema, crackles on examination - Lab work without any electrolyte abnormalities, acid-base abnormalities or uremia - Worsening renal function this morning, BUN/Cr of 114/8.97 - PermaCath placed yesterday, HD scheduled for today - c/w IV fluid hydration - Nephrology is on consultation. - Have consulted vascular surgery for AV fistula placement. Leukocytosis - possibly 2/2 reactive etiology - Remains afebrile and hemodynamically stable Macrocytic anemia - No evidence of bleeding - H/H continues to decline. Value today of 9.0/28, may be 2/2 to renal disease - B12 and folate WNL Thrombocytopenia with unclear etiology - Continues to drop, 106 this morning down from 113 yesterday - No evidence of bleeding - Will continue to follow trend Hyponatremia - possibly 2/2 hypotonic hypervolemic etiology -Sodium of 136 today, improved from 133 yesterday -No signs of fluid overload Atrial Fibrillation - c/w metoprolol tartrate with holding parameters - Currently on full anticoagulation with Eliquis CAD s/p CABG - c/w ASA HTN - BP well controlled - Carvedilol on Hold; will start Metoprolol Tartrate DLP - c/w Ezetimibe and Simvastatin DM2 - c/w ISS Gout - Uric acid level of 8.0 likely 2/2 to renal disease GERD / Rodriguez's esophagus - c/w Omeprazole DVT prophylaxis - On full anticoagulation with Eliquis VS,Fishbone, I+O VS, Fishbone, I+O Laboratory Tests 04/21/18 05:28 Red Blood Count 2.82 L, Mean Corpuscular Volume 99.3 H, Mean Corpuscular Hemoglobin 31.9, Mean Corpuscular Hemoglobin Concent 32.1, Red Cell Distribution Width 17.7 H Vital Signs Date Time Temp Pulse Resp B/P (MAP) Pulse Ox O2 Delivery O2 Flow Rate FiO2 04/21/18 14:39 18 04/21/18 14:01 73 127/51 04/21/18 14:00 100.4 93 04/19/18 20:36 Room Air I&O- Last 24 Hours up to 6 AM 04/21/18 06:00 Intake Total 1920 ml Output Total 100 ml Balance 1820 ml GME ATTESTATION GME ATTESTATION My faculty preceptor for this patient encounter was physically present during the encounter and was fully available. All aspects of the patient interview, examination, medical decision making process, and medical care plan development were reviewed and approved by the faculty preceptor. The faculty preceptor is aware and concurs with the plan as stated in the body of this note and will attest to such by his/her cosignature. ATTENDING NOTE I, Ishaan Liang, have both independently examined this patient as well as reviewed the documentation. I have discussed in detail with the resident the findings and plan of treatment as documented in the residents documentation. I will continue to follow the patient and offer further guidance to the patients care as necessary during this hospital stay. SAILAJA TUTTLE DO Apr 21, 2018 17:08 ISHAAN LIANG MD Apr 22, 2018 18:34
[2018-04-21] MEDS ORDERED: VANCOMYCIN HCL 1,000 MG, VIAL MATE ADAPTER 1 EACH in D5W 250 ML IV ONE (20:45)
--- NOTE | 2018-04-21 21:23 | IPN ---
DATE: 04/21/2018 SUBJECTIVE: Patient was seen and examined at the bedside today morning. He is afebrile. Patient continues to be oliguric. There are no signs of renal recovery. He was getting intravenous (IV) fluid hydration as well in the morning. I stopped his IV fluid in the morning. Patient already got the right internal jugular (IJ) tunneled hemodialysis catheter placed. I discussed the need to start hemodialysis, and he agreed for that, so patient was taken to the dialysis center for initiation of hemodialysis. I saw and evaluated the patient today morning during hemodialysis. He was complaining of pain in both hips during dialysis, and he needed Percocet tablet for pain. Blood pressures were low during dialysis, so ultrafiltration during hemodialysis was stopped, and dialysis was done for clearance only. OBJECTIVE: Vital signs: Temperature is 98.3 degrees Fahrenheit, blood pressure is 129/58, pulse is 73, respiratory rate of 20, saturating 93% on room air. Intake and output: Urine output recorded is only 100 mL. PHYSICAL EXAMINATION: GENERAL: Patient is awake, alert, oriented times three, lying in bed getting hemodialysis done. HEAD AND NECK: Extraocular muscles intact. Pupils equally round and reactive to light. Neck is supple. He has a right IJ tunneled hemodialysis catheter. CARDIOVASCULAR: S1, S2, regular rate. Mildly elevated jugular venous distention (JVD). No edema of the bilateral lower extremities. RESPIRATORY: Mild decreased breath sounds at the bases, otherwise no active rhonchi. There are mild crepitations at the bases on deep inspiration. ABDOMEN: Soft, obese. Positive bowel sounds. Nontender. No organomegaly. MUSCULOSKELETAL: No clubbing or cyanosis. Pulses are 2+. CENTRAL NERVOUS SYSTEM: No focal deficit. Power is 5/5 in all extremities. LABORATORY REVIEW: CBC showed a WBC of 16, hemoglobin is 9, platelets are 106. BMP showed sodium 136, potassium 4.7, chloride 101, bicarbonate 22, BUN 114, creatinine 8.9, glucose 170. Iron is 28, transferrin saturation 16.9, ferritin is 371. Microbiology: Cultures are pending. CURRENT INPATIENT MEDICATIONS: Patient's medications were all reviewed by me. I already stopped his normal saline today. No other change in the medications today as compared with yesterday. ASSESSMENT AND PLAN: 1. Acute renal failure superimposed on chronic kidney disease, stage IV. Patient recently had esophagogastroduodenoscopy (EGD) and colonoscopy done. He had an episode orf acute renal failure during previous hospitalization after anesthesia as well, requiring dialysis, and his renal function improved to chronic kidney disease (CKD) IV. Patient was already following up with nephrology, and he was getting ready to get the fistula placed; however, after a recent procedure he went into renal failure again. Patient has been started on hemodialysis. I will continue to monitor his renal function for any signs of improvement. Patient is being dialyzed for 2 hours today. Next hemodialysis session will be on Monday for 3 hours. 2. Anemia, in renal failure and iron deficiency. Patient will be started on Venofer 100 mg with hemodialysis. Hemoglobin is 9. If hemoglobin drops further, then Aranesp can be started as well. 3. Leukocytosis and low-grade temperatures. Blood cultures and sputum cultures have been sent. I am going to empirically start the patient on IV antibiotics. 4. Secondary hyperparathyroidism. Continue current dose of calcitriol Monday, Monday, Monday. 5. Chronic atrial fibrillation. Continue home dose of Eliquis 2.5 mg by mouth twice a day, metoprolol 12.5 mg by mouth every 6 hours. 6. Bilateral hip pain. I gave the patient a dose of Percocet during dialysis.
[2018-04-21 22:00] VITALS: BP 95/52
[2018-04-21] MEDS: SIMVASTATIN 40 MG TAB PO SCH (22:01)
[2018-04-21] MEDS: ASPIRIN 81 MG ENTERIC TAB PO SCH (22:01)
[2018-04-21] MEDS ORDERED: AZTREONAM 1 GM ONE (22:01)
[2018-04-21] MEDS ORDERED: AZTREONAM IV SCH (23:00)
[2018-04-21] MEDS ORDERED: D5W IV SCH (23:00)
[2018-04-22] MEDS: METOPROLOL TART 12.5 MG PER 1/2 TAB PO SCH ×4 (05:48→17:52)
[2018-04-22 06:00] VITALS: BP 103/54
[2018-04-22 07:06] LABS: HEMATOCRIT 30.4 % (42.0-52.0); HEMOGLOBIN 9.3 g/dl (13.5-17.5); MEAN CORPUSCULAR HEMOGLOBIN 31.3 pg (27.0-33.0); MEAN CORPUSCULAR HGB CONC 30.6 g/dl (32.0-36.5); MEAN CORPUSCULAR VOLUME 102.4 fl (80.0-96.0); RED BLOOD COUNT 2.97 10^6/uL (4.30-6.10); WHITE BLOOD COUNT 14.9 10^3/uL (4.0-10.0)
[2018-04-22 07:23] LABS: PLATELET COUNT, AUTOMATED 87 10^3/uL (150-450)
[2018-04-22 07:26] LABS: CALCIUM LEVEL 8.2 MG/DL (8.8-10.2); CREATININE FOR GFR 7.04 MG/DL (0.70-1.30); POTASSIUM SERUM 4.7 MEQ/L (3.5-5.1)
[2018-04-22] MEDS ORDERED: diphenhydrAMINE 25 MG CAP PO PRN ×2 (08:15→10:45)
[2018-04-22] MEDS: OMEPRAZOLE 20 MG CAP PO SCH ×2 (08:33→21:36)
[2018-04-22] MEDS: EZETIMIBE 10 MG TAB (ZETIA) PO SCH (08:33)
[2018-04-22] MEDS: MULTIVITAMINS/MINERALS THERAP 1 TAB PO SCH (08:33)
[2018-04-22] MEDS: APIXABAN 2.5 MG TAB (ELIQUIS) PO SCH ×2 (08:33→21:36)
[2018-04-22] MEDS: HumaLOG INSULIN (NovoLOG) PER UNIT SC SCH ×3 (08:34→17:52)
[2018-04-22] MEDS ORDERED: LevoFLOXacin IV 500 MG in APPROPRIATE DILUENT 1 EA IV ONE (09:00)
[2018-04-22] MEDS ORDERED: IRON SUCROSE 100MG 5ML VIAL (J1756 PER 1MG) IV SCH (11:00)
[2018-04-22] MEDS: AZTREONAM 0.5 GM in D5W 50 ML IV SCH (12:35)
[2018-04-22 14:00] VITALS: BP 108/53
--- NOTE | 2018-04-22 16:12 | IPNPDOC ---
Text Note Date of Service The patient was seen on 04/22/18. NOTE Subjective: Patient is an 87-year-old male with a PMHx of A. fib (on Eliquis), CAD s/p CABG, HTN, DM2, Gout, GERD / Rodriguez's esophagus who presented to the ER with complaints of generalized weakness and decreased urine production. Patiently recently had an EGD and colonoscopy about 4 days ago and since that point has been experiencing symptoms. His history is also significant for a one- week requirement of dialysis after he had a hernia operation that caused him to develop ATN. Upon arrival to the emergency room, patient was found to have an elevated creatinine and was admitted to hospitalist service for further evaluation and treatment. Nephrology was called on consultation. Patient was seen and examined at the bedside. Patient still reports a cough. Denies any chest pain or palpitations. Does not report any difficulty breathing. He does note diffuse itch throughout his body. Denies any nausea, vomiting, abdominal pain, constipation, or diarrhea. Patient does have a Carrion catheter in place. Objective: Vitals (See below) General: Lying in bed, no acute distress, comfortable, AAOx3 HEENT: NC, AT CVS: RRR, +S1S2 Lungs: Fair air entry b/l, no evidence of wheezing / rales / rhonchi Abdomen: Soft, non-distended without tenderness Extremities: No evidence of edema, - Calf tenderness Assessment and plan: 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 - likely 2/2 pre-renal etiology, possi kunal 2/2 intra-rental etiology - 2/2 ATN - Patient has had a history of hemodialysis for ATN after hernia repair operation - Patient has been following with nephrology as an outpatient and has indicated that they wanted him to have an AV fistula placed for dialysis - Currently, patient is not having any evidence of fluid overload - Lab work without any electrolyte abnormalities, acid-base abnormalities or uremia - s/p PermaCath placement; s/p HD; will go for additional HD tomorrow - Nephrology is on consultation - Vascular surgery on consult; will go for AV fistula placement tomorrow after HD Leukocytosis - possibly 2/2 reactive etiology - Improving - Remains afebrile and hemodynamically stable - c/w Aztreonam (Day #2); s/p Vancomycin x 1 dose (04/21/18) Macrocytic anemia - No evidence of bleeding - B12 and Folate levels noted - Will continue to follow Hg trend Thrombocytopenia - etiology unclear - No evidence of bleeding - Will continue to follow s/p Hyponatremia - possibly 2/2 hypotonic hypervolemic etiology A. fib - s/p Carvedilol; c/w metoprolol tartrate with holding parameters - Currently on full anticoagulation with Eliquis CAD s/p CABG - c/w ASA HTN - BP well controlled - s/p Carvedilol; c/w metoprolol tartrate DLP - c/w Ezetimibe and Simvastatin DM2 - c/w ISS Gout - Currently not on medications GERD / Rodriguez's esophagus - c/w Omeprazole DVT prophylaxis - On full anticoagulation with Eliquis VS,Fishbone, I+O VS, Fishbone, I+O Laboratory Tests 04/22/18 06:16 Red Blood Count 2.97 L, Mean Corpuscular Volume 102.4 H, Mean Corpuscular Hemoglobin 31.3, Mean Corpuscular Hemoglobin Concent 30.6 L, Red Cell Distribution Width 18.2 H, Calcium Level 8.2 L Vital Signs Date Time Temp Pulse Resp B/P (MAP) Pulse Ox O2 Delivery O2 Flow Rate FiO2 04/22/18 14:00 99.6 67 18 108/53 (71) 92 04/19/18 20:36 Room Air I&O- Last 24 Hours up to 6 AM 04/22/18 06:00 Intake Total 860 ml Output Total 350 ml Balance 510 ml ANGEL LIANG MD Apr 22, 2018 16:12
--- NOTE | 2018-04-22 17:16 | IPN ---
DATE: 04/22/2018 SUBJECTIVE: Patient was seen and examined at the bedside today morning. He had a low grade temperature spike last night. Cultures were sent yesterday. Patient was empirically started on vancomycin and aztreonam. Otherwise, patient reports feeling better today as compared with yesterday. He tolerated two hours of hemodialysis. OBJECTIVE: VITAL SIGNS: Temperature 98.1 degrees Fahrenheit, maximum temperature (T-max) 100.4 degrees Fahrenheit yesterday evening, blood pressure 103/54, pulse 74, respiratory rate 20, saturating 96% on room air. Intake and output: Urine output recorded is only 100 mL, fluid removal with dialysis was 250 mL only. Weight in the bed scale is 79.7 kg. PHYSICAL EXAMINATION: GENERAL: Patient is awake, alert, oriented times three, laying in bed, no apparent distress. HEAD and NECK EXAM: Extraocular muscles intact. Pupils equally round and reactive to light. Mucous membranes are moist. Neck is supple, there is no jugular venous distention (JVD). He has a right internal jugular (IJ) tunneled hemodialysis catheter. CARDIOVASCULAR: S1, S2, regular rate. Mild elevation of jugular venous distention (JVD). RESPIRATORY: Mildly decreased breath sounds at the bases, otherwise no active rales or rhonchi. ABDOMEN: Soft, obese, positive bowel sounds, nontender. No organomegaly. MUSCULOSKELETAL: No clubbing or cyanosis. Pulses are 2+. CENTRAL NERVOUS SYSTEM ([employer]ER): No focal deficit. Power is 5/5 in all extremities. LABORATORY REVIEW: CBC showed WBC 14.9, hemoglobin 9.3, platelets 87. BMP shows sodium 137, potassium 4.7, chloride 107, bicarbonate 20, BUN 89, creatinine 7, calcium 8.2. CURRENT INPATIENT MEDICATIONS: Patient's medications were all reviewed by me. He continues to be on aztreonam 0.5 grams IV every 12 hours. He also got a dose of vancomycin yesterday. No other change in the medications today as compared with yesterday. ASSESSMENT AND PLAN: 1. Acute renal failure superimposed on chronic kidney disease stage IV. Patient got tunneled catheter placement. He was started on dialysis yesterday. No signs of improvement of renal function. Another session of hemodialysis will be done tomorrow morning for 3 hours. 2. 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 Patient is being started on Venofer. He will also get a dose of Aranesp with dialysis tomorrow. 3. Leukocytosis and low grade temperature. Cultures are pending. He has been empirically started on vancomycin and aztreonam. 4. Chronic atrial fibrillation. Rate is controlled with metoprolol. Continue current dose of Eliquis 2.5 mg twice a day. 5. Arteriovenous (AV) access. Patient is being dialyzed via the right internal jugular (IJ) tunneled catheter. He is going to get a fistula placed during this hospitalization.
[2018-04-22] MEDS: diphenhydrAMINE 12.5MG/5ML ELIXIR UDC PO PRN (19:05)
[2018-04-22] MEDS: SIMVASTATIN 40 MG TAB PO SCH (21:36)
[2018-04-22] MEDS: ASPIRIN 81 MG ENTERIC TAB PO SCH (21:36)
[2018-04-22 22:00] VITALS: BP 122/57
[2018-04-23] MEDS: AZTREONAM 0.5 GM in D5W 50 ML IV SCH ×2 (00:12→14:58)
[2018-04-23] MEDS: HumaLOG INSULIN (NovoLOG) PER UNIT SC SCH ×5 (00:12→21:00)
[2018-04-23] MEDS: METOPROLOL TART 12.5 MG PER 1/2 TAB PO SCH ×4 (05:42→18:00)
[2018-04-23] MEDS: MULTIVITAMINS/MINERALS THERAP 1 TAB PO SCH (05:42)
[2018-04-23] MEDS: OMEPRAZOLE 20 MG CAP PO SCH ×2 (05:42→21:03)
[2018-04-23] MEDS: CALCITRIOL 0.25 MCG CAP (S0169) PO SCH (05:42)
[2018-04-23] MEDS: EZETIMIBE 10 MG TAB (ZETIA) PO SCH (05:42)
[2018-04-23] MEDS: APIXABAN 2.5 MG TAB (ELIQUIS) PO SCH ×2 (05:42→21:03)
[2018-04-23 06:00] VITALS: BP 135/64
[2018-04-23 06:02] LABS: HEMATOCRIT 27.9 % (42.0-52.0); HEMOGLOBIN 8.8 g/dl (13.5-17.5); MEAN CORPUSCULAR HEMOGLOBIN 31.2 pg (27.0-33.0); MEAN CORPUSCULAR HGB CONC 31.5 g/dl (32.0-36.5); MEAN CORPUSCULAR VOLUME 98.9 fl (80.0-96.0); RED BLOOD COUNT 2.82 10^6/uL (4.30-6.10); WHITE BLOOD COUNT 16.5 10^3/uL (4.0-10.0)
[2018-04-23] MEDS ORDERED: ACETAMINOPHEN TAB 650MG DOSE (2X325MG) PO ONE (06:15)
[2018-04-23 06:28] LABS: PLATELET COUNT, AUTOMATED 74 10^3/uL (150-450)
[2018-04-23 06:31] LABS: CALCIUM LEVEL 8.3 MG/DL (8.8-10.2); CREATININE FOR GFR 7.18 MG/DL (0.70-1.30); GLOMERULAR FILTRATION RATE 7.8 (>35); POTASSIUM SERUM 4.6 MEQ/L (3.5-5.1)
[2018-04-23] MEDS: diphenhydrAMINE 12.5MG/5ML ELIXIR UDC PO PRN (06:43)
[2018-04-23] MEDS ORDERED: DARBEPOETIN 100 MCG/0.5 ML *DIALYSIS* SYRINGE (J0882) IV SCH (08:00)
[2018-04-23 10:43] LABS: HEPATITIS B CORE ANTIBODY IGM NEGATIVE (NEGATIVE); HEPATITIS B SURFACE ANTIBODY NEGATIVE (POSITIVE); HEPATITIS B SURFACE ANTIGEN NEGATIVE (NEGATIVE)
--- NOTE | 2018-04-23 11:08 | IPNPDOC ---
Text Note Date of Service The patient was seen on 04/23/18. NOTE Subjective: Patient is an 87-year-old male with a PMHx of A. fib (on Eliquis), CAD s/p CABG, HTN, DM2, Gout, GERD / Rodriguez's esophagus who presented to the ER with complaints of generalized weakness and decreased urine production. Patiently recently had an EGD and colonoscopy about 4 days ago and since that point has been experiencing symptoms. His history is also significant for a one- week requirement of dialysis after he had a hernia operation that caused him to develop ATN. Upon arrival to the emergency room, patient was found to have an elevated creatinine and was admitted to hospitalist service for further evaluation and treatment. Nephrology was called on consultation. Patient was interviewed and examined at the bedside. He is awake and alert, in good spirits despite not sleeping well last evening. No chest pain/pressure/tightness. Denies difficulty breathing, N/V, abdominal pain. He continues to have a non-productive cough. No difficulty stooling. Patient does have a Carrion catheter in place, 200cc of output noted. Objective: Vitals (See below) General: Alert and oriented, sitting upright in his hospital bed, in no acute distress HEENT: Normocephalic, atraumatic, EOMI CVS: regular rate and rhythm, no murmurs gallops or rubs Lungs: Clear to auscultation, no wheezing, rales and rhonci Chest: PermCath placement noted, no inappropriate erythema or drainage Abdomen: Soft, nontender, no masses Extremities: No LE edema, no calf tenderness bilaterally Assessment and plan: 1. 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 - likely 2/2 pre-renal etiology, possibly 2/2 intra-rental etiology - 2/2 ATN - Patient has had a history of hemodialysis for ATN after hernia repair operation - Patient has been following with nephrology as an outpatient and has indicated that they wanted him to have an AV fistula placed for dialysis - Currently, patient is not having any evidence of fluid overload - Lab work without any electrolyte abnormalities, acid-base abnormalities or uremia - s/p PermaCath placement; s/p HD on 04/21, will continue HD today - AV fistula placement today following HD - Nephrology is on consultation 2. Leukocytosis - possibly 2/2 reactive etiology - Improving, 16.5 today, down from 17.4 at admission - Remains afebrile and hemodynamically stable - c/w Aztreonam (Day #3); s/p Vancomycin x 1 dose (04/21/18) 3. Macrocytic anemia - No evidence of bleeding - B12 and Folate levels noted - Will continue to follow Hg trend 4. Thrombocytopenia - etiology unclear - No evidence of bleeding - Will continue to follow 5. s/p Hyponatremia - possibly 2/2 hypotonic hypervolemic etiology 6. A. fib - s/p Carvedilol; c/w metoprolol tartrate with holding parameters - Currently on full anticoagulation with Eliquis 7. CAD s/p CABG - c/w ASA 8. HTN - BP well controlled - s/p Carvedilol; c/w metoprolol tartrate 9. DLP - c/w Ezetimibe and Simvastatin 10. DM2 - c/w ISS 11. Gout - Currently not on medications 12. GERD / Rodriguez's esophagus - c/w Omeprazole DVT prophylaxis - On full anticoagulation with Eliquis Dispo: S/P AV fistula placement VS,Fishbone, I+O VS, Fishbone, I+O Laboratory Tests 04/23/18 05:32 Red Blood Count 2.82 L, Mean Corpuscular Volume 98.9 H, Mean Corpuscular Hemoglobin 31.2, Mean Corpuscular Hemoglobin Concent 31.5 L, Red Cell Distribution Width 18.0 H, Calcium Level 8.3 L Vital Signs Date Time Temp Pulse Resp B/P (MAP) Pulse Ox O2 Delivery O2 Flow Rate FiO2 04/23/18 06:00 98.5 72 20 135/64 (87) 96 04/19/18 20:36 Room Air I&O- Last 24 Hours up to 6 AM 04/23/18 06:00 Intake Total 1780 ml Output Total 450 ml Balance 1330 ml GME ATTESTATION GME ATTESTATION My faculty preceptor for this patient encounter was physically present during the encounter and was fully available. All aspects of the patient interview, examination, medical decision making process, and medical care plan development were reviewed and approved by the faculty preceptor. The faculty preceptor is aware and concurs with the plan as stated in the body of this note and will attest to such by his/her cosignature. ATTENDING NOTE I, Ishaan Brownlee, have both independently examined this patient as well as reviewed the documentation. I have discussed in detail with the resident the findings and plan of treatment as documented in the residents documentation. I will continue to follow the patient and offer further guidance to the patients care as necessary during this hospital stay. SAILAJA TUTTLE DO Apr 23, 2018 11:08 ISHAAN BROWNLEE MD Apr 23, 2018 15:12
[2018-04-23] MEDS ORDERED: HEPARIN 1,000 UNITS/ML 10ML VIAL (FOR RADIOLOGY& DIALYSIS ONLY) XX ONE ×2 (11:15→11:30)
--- NOTE | 2018-04-23 11:42 | IPN ---
DATE OF SERVICE: 04/23/2018 SUBJECTIVE: Patient was seen and examined at the bedside today morning. He is afebrile, hemodynamically stable. There are no signs of renal recovery. Patient reports that he is going to have AV fistula placed by vascular surgery today in the afternoon. He is also due for dialysis today. OBJECTIVE: Vital signs: Temperature is 98.5 degrees Fahrenheit, blood pressure 135/64, pulse is 72, respiratory rate of 20, saturating 96% on room air. Intake and output: Urine output recorded is only 350 mL since overnight. Weight on the bed scale is 80.1 kg. PHYSICAL EXAMINATION: General: Patient is awake, alert, oriented times three, lying in bed, no apparent distress. Head and neck exam: Extraocular muscles intact. Pupils equally round and reactive to light. Mucous membranes are moist. Neck is supple. She has a right IJ tunneled hemodialysis catheter. Cardiovascular: S1, S2. Regular rate. Mild elevation of the JVD. Respiratory: Mildly decreased breath sounds at the bases, otherwise no active rales or rhonchi. Abdomen is soft, obese, positive bowel sounds. Nontender. No organomegaly. Musculoskeletal: No clubbing or cyanosis. Pulses are 2+. Central nervous system: No focal deficit. Power is 5/5 in all extremities. LAB REVIEW: CBC showed WBC of 16.5, hemoglobin 8.8, platelets are 74. BMP showed sodium 136, potassium 4.6, chloride 107, bicarbonate 20, BUN 102, creatinine is 7.1. Microbiology: Sputum culture is growing moderate amount of yeast like organisms. Respiratory viral panel is negative. CURRENT INPATIENT MEDICATIONS: Patient's medications are all reviewed by me. He continues to be on IV aztreonam. No other change in the medications today as compared with yesterday. ASSESSMENT AND PLAN: 1. Acute renal failure superimposed on chronic kidney disease stage IV. Patient is dialysis dependent at this point. He was dialyzed once over the weekend. Second session of dialysis will be done today for 3 hours. I will try to remove about 500 mL of fluid as tolerated by his blood pressure. 2. Anemia secondary to iron deficiency and end stage renal disease. Patient has been started on Venofer. He will get Venofer with hemodialysis today. He will also start Aranesp once a week with dialysis. 3. Chronic atrial fibrillation. He continues to be on Eliquis. Rate control with metoprolol at this time. 4. Thrombocytopenia. Patient is not getting heparin with dialysis. I am going to hold any subcutaneous heparin as well.
[2018-04-23 15:00] VITALS: BP 127/59
[2018-04-23] MEDS ORDERED: LIDOCAINE 1% SDV INJ 30 ML VIAL As Ordered ONE (16:11)
[2018-04-23] MEDS ORDERED: HEPARIN SOD (PORCINE) 5000 UNITS/ML VIAL As Ordered ONE (16:12)
[2018-04-23] MEDS ORDERED: BUPIVACAINE HCL 0.5% 30 ML VIAL As Ordered ONE (16:12)
[2018-04-23] MEDS ORDERED: ISOVUE-300 61% 50ML VIAL (Q9967) As Ordered ONE (16:12)
[2018-04-23] MEDS ORDERED: LIDOCAINE 2% INJ 100 MG/5 ML SDV (FOR ANES.) As Ordered ONE (16:56)
[2018-04-23] MEDS ORDERED: PROPOFOL 200 MG/20 ML VIAL As Ordered ONE (16:56)
[2018-04-23] MEDS ORDERED: fentaNYL 100 MCG/2 ML INJECTION (J3010) As Ordered ONE (16:56)
[2018-04-23] MEDS ORDERED: MIDAZOLAM INJ 2 MG/2 ML VIAL (J2250) As Ordered ONE (16:56)
[2018-04-23] MEDS ORDERED: THROMBIN SOLN 20,000 UNITS KIT As Ordered ONE (18:25)
[2018-04-23] MEDS ORDERED: ONDANSETRON 4MG/2ML VIAL (J2405) IV PRN (19:00)
[2018-04-23] MEDS ORDERED: fentaNYL 100 MCG/2 ML INJECTION (J3010) IV PRN (19:00)
[2018-04-23] MEDS ORDERED: LR 1,000 ML IV SCH (19:00)
[2018-04-23] MEDS: ASPIRIN 81 MG ENTERIC TAB PO SCH (21:03)
[2018-04-23] MEDS: SIMVASTATIN 40 MG TAB PO SCH (21:03)
[2018-04-23 22:00] VITALS: BP 134/63
[2018-04-23] MEDS: ACETAMINOPHEN TAB 650MG DOSE (2X325MG) PO PRN (22:44)
[2018-04-24] MEDS: AZTREONAM 0.5 GM in D5W 50 ML IV SCH (00:02)
[2018-04-24 06:00] VITALS: BP 113/58
[2018-04-24] MEDS: METOPROLOL TART 12.5 MG PER 1/2 TAB PO SCH ×4 (06:00→18:00)
[2018-04-24 06:02] LABS: HEMATOCRIT 29.5 % (42.0-52.0); HEMOGLOBIN 9.6 g/dl (13.5-17.5); MEAN CORPUSCULAR HEMOGLOBIN 32.2 pg (27.0-33.0); MEAN CORPUSCULAR HGB CONC 32.5 g/dl (32.0-36.5); RED BLOOD COUNT 2.98 10^6/uL (4.30-6.10); WHITE BLOOD COUNT 19.5 10^3/uL (4.0-10.0)
[2018-04-24 06:31] LABS: CALCIUM LEVEL 8.1 MG/DL (8.8-10.2); CREATININE FOR GFR 4.54 MG/DL (0.70-1.30); GLOMERULAR FILTRATION RATE 13.2 (>35); POTASSIUM SERUM 4.5 MEQ/L (3.5-5.1)
[2018-04-24 06:35] LABS: PLATELET COUNT, AUTOMATED 66 10^3/uL (150-450)
[2018-04-24] MEDS: OMEPRAZOLE 20 MG CAP PO SCH ×2 (08:06→20:07)
[2018-04-24] MEDS: MULTIVITAMINS/MINERALS THERAP 1 TAB PO SCH (08:06)
[2018-04-24] MEDS: APIXABAN 2.5 MG TAB (ELIQUIS) PO SCH ×2 (08:07→20:07)
[2018-04-24] MEDS: EZETIMIBE 10 MG TAB (ZETIA) PO SCH (08:07)
[2018-04-24] MEDS: HumaLOG INSULIN (NovoLOG) PER UNIT SC SCH ×4 (08:08→20:08)
[2018-04-24] MEDS ORDERED: LevoFLOXacin IV 250 MG in APPROPRIATE DILUENT 1 EA IV SCH (09:00)
[2018-04-24] MEDS: ACETAMINOPHEN TAB 650MG DOSE (2X325MG) PO PRN (11:26)
[2018-04-24] MEDS ORDERED: HEPARIN 1,000 UNITS/ML 10ML VIAL (FOR RADIOLOGY& DIALYSIS ONLY) XX ONE (11:45)
--- NOTE | 2018-04-24 11:55 | IPN ---
DATE OF SERVICE: 04/24/2018 SUBJECTIVE: Patient was seen and examined at the bedside today morning. He is afebrile, hemodynamically stable. He got hemodialysis done yesterday, 500 mL of fluid was removed. He went for a right upper arm AV fistula placement yesterday to the operating room (OR) as well. Patient still reports a mild amount of shortness of breath. Otherwise he denies any fevers or chills. OBJECTIVE: Vital signs: Temperature is 99.7 degrees Fahrenheit, blood pressure 113/58, pulse is 84, respiratory rate of 18, saturating 94% on room air. Intake and output: His urine output picked up yesterday, he made 850 mL of urine. Ultrafiltration with hemodialysis was 500 mL. PHYSICAL EXAMINATION: General: Patient is awake, alert, oriented times three, lying in the bed, mild respiratory distress. Head and neck exam: Extraocular muscles intact. Pupils equally round and reactive to light. Mucous membranes are moist. Neck is supple. There is mildly elevated jugular venous distention (JVD). He has a right IJ tunneled hemodialysis catheter. Cardiovascular: S1, S2. Regular rate. 1+ edema on the bilateral lower extremities. Respiratory: Decreased breath sounds at the bases, otherwise no active rales or rhonchi. Abdomen is soft, obese, positive bowel sounds. Nontender. No organomegaly. Musculoskeletal: No clubbing or cyanosis. Pulses are 2+. Central nervous system: No focal deficit. Power is 5/5 in all extremities. LAB REVIEW: CBC showed a WBC of 19.5, hemoglobin 9.6, platelets are 66. BMP showed sodium 139, potassium 4.5, chloride 107, bicarbonate 25, BUN 57, creatinine is 4.5. Calcium 8.1. Microbiology: Respiratory viral panel is negative. Blood cultures are all negative so far. CURRENT INPATIENT MEDICATIONS: Patient's medications are all reviewed by me. He continues to be on IV aztreonam. He has been started on vancomycin. I am going to stop the aztreonam and start the patient on Levaquin. ASSESSMENT AND PLAN: 1. Acute renal failure superimposed on chronic kidney disease stage 4. Patient is still dialysis dependent. He was dialyzed for 3 hours yesterday. He will be dialyzed again 3-1/2 hours. I will try to remove at least 1 liter as fluid as tolerated by his blood pressure. 2. Fever spikes and leukocytosis. Patient is being restarted on IV vancomycin with each dialysis. We are stopping the aztreonam and starting the patient on Levaquin because patient's thrombocytopenia is getting worse. 3. Anemia secondary to iron deficiency and end stage renal disease. Patient is receiving Aranesp and Venofer. Hemoglobin level is improving. 4. Chronic atrial fibrillation. Continue current dose of Eliquis. Continue current dose of metoprolol. 5. Thrombocytopenia. As mentioned above. Aztreonam is being stopped. Patient is being switched to Levaquin. I am going to stop the aspirin at this time. MTDD
--- NOTE | 2018-04-24 14:44 | IPNPDOC ---
Date Seen The patient was seen on 04/24/18. Progress Note Subjective: Pt c/o persistent dysphagia and vomiting after taking his pills this morning, even with applesauce. He is requesting his meds to be taken the way he takes them at home, one by one instead of all at once. no abd pain. no brbpr or weight loss. Objective: Vitals (See below) General: Lying in bed, no acute distress, comfortable, AAOx3 HEENT: NC, AT CVS: RRR, +S1S2 Lungs: Fair air entry b/l, no evidence of wheezing / rales / rhonchi Abdomen: Soft, non-distended without tenderness Extremities: No evidence of edema, - Calf tenderness Assessment and plan:Patient is an 87-year-old male with a PMHx of A. fib (on Eliquis), CAD s/p CABG, HTN, DM2, Gout, GERD / Rodriguez's esophagus who presented to the ER with complaints of generalized weakness and decreased urine production. Patiently recently had an EGD and colonoscopy about 4 days ago and since that point has been experiencing symptoms. His history is also significant for a one-week requirement of dialysis after he had a hernia operation that caused him to develop ATN. Upon arrival to the emergency room, patient was found to have an elevated creatinine and was admitted to hospitalist service for further evaluation and treatment. Nephrology was called on consultation. Patient was seen and examined at the bedside. Patient still reports a cough. Denies any chest pain or palpitations. Does not report any difficulty breathing. He does note diffuse itch throughout his body. Denies any nausea, vomiting, abdominal pain, constipation, or diarrhea. Patient does have a Carrion catheter in place. 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 - likely 2/2 pre-renal etiology, possibly 2/2 intra-rental etiology - 2/2 ATN - Patient has had a history of hemodialysis for ATN after hernia repair operation - Patient has been following with nephrology as an outpatient and has indicated that they wanted him to have an AV fistula placed for dialysis - Currently, patient is not having any evidence of fluid overload - Lab work without any electrolyte abnormalities, acid-base abnormalities or uremia - s/p PermaCath placement; s/p HD; will go for additional HD tomorrow - Nephrology is on consultation - Vascular surgery on consult; will go for AV fistula placement tomorrow after HD Leukocytosis - possibly 2/2 reactive etiology - Improving - Remains afebrile and hemodynamically stable - c/w Aztreonam (Day #2); s/p Vancomycin x 1 dose (04/21/18) Macrocytic anemia - No evidence of bleeding - B12 and Folate levels noted - Will continue to follow Hg trend Thrombocytopenia - etiology unclear - No evidence of bleeding - Will continue to follow s/p Hyponatremia - possibly 2/2 hypotonic hypervolemic etiology A. fib - s/p Carvedilol; c/w metoprolol tartrate with holding parameters - Currently on full anticoagulation with Eliquis CAD s/p CABG - c/w ASA HTN - BP well controlled - s/p Carvedilol; c/w metoprolol tartrate DLP - c/w Ezetimibe and Simvastatin DM2 - c/w ISS Gout - Currently not on medications GERD / Rodriguez's esophagus with c/o dysphagia unable to take his pills - c/w Omeprazole DVT prophylaxis - On full anticoagulation with Eliquis VS, I&O, 24H, Fishbone Vital Signs/I&O Vital Signs Date Time Temp Pulse Resp B/P (MAP) Pulse Ox O2 Delivery O2 Flow Rate FiO2 04/24/18 11:15 73 107/55 04/24/18 06:00 99.7 18 94 04/19/18 20:36 Room Air I&O- Last 24 Hours up to 6 AM 04/24/18 06:00 Intake Total 710 ml Output Total 1100 ml Balance -390 ml Laboratory Data 24H LABS Laboratory Tests 2 04/23/18 16:21: Bedside Glucose (Misc Panel) 135H 04/23/18 20:25: Bedside Glucose (Misc Panel) 148H 04/24/18 05:38: Nucleated Red Blood Cells % (auto) 0.4H, Immature Platelet Fraction 2.7, Anion Gap 7L, Glomerular Filtration Rate 13.2L, Blood Urea Nitrogen 57H, Creatinine 4.54H, Sodium Level 139, Potassium Level 4.5, Chloride Level 107, Carbon Dioxide Level 25, Calcium Level 8.1L 04/24/18 11:08: Bedside Glucose (Misc Panel) 200H CBC/BMP Laboratory Tests 04/24/18 05:38 Red Blood Count 2.98 L, Mean Corpuscular Volume 99.0 H, Mean Corpuscular Hemoglobin 32.2, Mean Corpuscular Hemoglobin Concent 32.5, Red Cell Distribution Width 18.0 H, Calcium Level 8.1 L Microbiology Microbiology 04/21/18 Blood Culture - Preliminary, Resulted No Growth after 72 hours. All specime... 04/21/18 Blood Culture - Preliminary, Resulted No Growth after 72 hours. All specime... 04/23/18 Respiratory Virus Panel (PCR) ([facility]) - Final, Complete 04/21/18 Gram Stain - Final, Complete 04/21/18 Sputum Culture - Final, Complete Yeast Like Organism VINAY ELLIOTT MD Apr 24, 2018 12:07
--- NOTE | 2018-04-24 15:55 | PHACANCOPD ---
PHARMACY VANCOMYCIN DOSING Pt Demographics Demographics Patient Age:87 , Weight:80.100 , Gender: male Adjusted Body Weight Date: 04/24/18, Adjusted Body Weight: Kg Events Past 24 Hours Events Past 24 Hours: YES: Fever, Elevation in WBC Vancomycin Vancomycin indication: EMPIRIC PNEUMONIA Vancomycin Target Ranges: 15-20 mcg/ml Vancomycin Load Y/N: No Load Dose Date Time Vancomycin Load Dose: Date: Time: Vancomycin Dose Date: 04/24/18. Current Vancomycin Dose: [1g given after hemodialysis on dialysis days] Intermittent Dosing?: Yes Labs Labs Item Value Date Time White Blood Count 19.5 10^3/uL H 04/24/18 0538 White Blood Count 16.5 10^3/uL H 04/23/18 0532 White Blood Count 14.9 10^3/uL H 04/22/18 0616 Creatinine 4.54 MG/DL H 04/24/18 0538 Creatinine 7.18 MG/DL H 04/23/18 0532 Blood Urea Nitrogen 89 MG/DL H 04/22/18 0616 Micro Microbiology 04/21/18 Blood Culture - Preliminary, Resulted No Growth after 72 hours. All specime... 04/21/18 Blood Culture - Preliminary, Resulted No Growth after 72 hours. All specime... 04/23/18 Respiratory Virus Panel (PCR) ([facility]) - Final, Complete 04/21/18 Gram Stain - Final, Complete 04/21/18 Sputum Culture - Final, Complete Yeast Like Organism Creatinine Clearance Date:04/24/18. Est Creatinine Clearance: [~11ml/min]. Pending Labs Random vancomycin level scheduled 04/25/18 @0500 Assessment and Plan Maintaining Current Dose?: Yes Reason for dose change: No Dose Change Pharmacist Note Pharmacist Note Date: 04/24/18. Pharmacist note: Day #1 empiric vancomycin therapy initiated with a 1g dose given today after hemodialysis for the treatment of possible pneumonia - aiming for a goal level of 15-20mcg/ml. The patient is normally has a Monday, Monday, Monday dialysis schedule but is being transitioned to a Monday, , Monday schedule. The patient was dialyzed yesterday, and is again receiving dialysis today. WBC continues to rise and the patient is spiking fevers despite having been on Aztreonam since 04/21/18. Sputum culture grew moderate yeast. An MRSA screen is currently pending. A random vancomycin level has been scheduled to be drawn tomorrow, 04/25/18, with morning labs. We will continue to monitor and make dose adjustments accordingly. MARK GLEASON PHARMACY Apr 24, 2018 15:55
[2018-04-24] MEDS: **VANCO AFTER HD** MISC XX SCH (16:00)
[2018-04-24] MEDS: VANCOMYCIN HCL 1,000 MG, VIAL MATE ADAPTER 1 EACH in D5W 250 ML IV SCH (17:24)
[2018-04-24] MEDS: LevoFLOXacin 500 MG TABLET PO SCH (18:22)
[2018-04-24] MEDS: SIMVASTATIN 40 MG TAB PO SCH (20:07)
[2018-04-24 22:00] VITALS: BP 105/52
[2018-04-25] MEDS: METOPROLOL TART 12.5 MG PER 1/2 TAB PO SCH ×4 (00:49→17:49)
[2018-04-25 05:38] LABS: HEMATOCRIT 27.5 % (42.0-52.0); HEMOGLOBIN 8.8 g/dl (13.5-17.5); MEAN CORPUSCULAR HEMOGLOBIN 31.9 pg (27.0-33.0); MEAN CORPUSCULAR VOLUME 99.6 fl (80.0-96.0); RED BLOOD COUNT 2.76 10^6/uL (4.30-6.10)
[2018-04-25 05:39] LABS: PLATELET COUNT, AUTOMATED 65 10^3/uL (150-450)
[2018-04-25 06:00] VITALS: BP 119/57
[2018-04-25 06:04] LABS: CALCIUM LEVEL 7.8 MG/DL (8.8-10.2); CREATININE FOR GFR 3.31 MG/DL (0.70-1.30); POTASSIUM SERUM 4.1 MEQ/L (3.5-5.1)
--- NOTE | 2018-04-25 06:14 | PHACANCOPD ---
PHARMACY VANCOMYCIN DOSING Pt Demographics Demographics Patient Age:87 , Weight:80.100 , Gender: male Adjusted Body Weight Date: 04/24/18, Adjusted Body Weight: Kg Vancomycin Vancomycin indication: EMPIRIC PNEUMONIA Vancomycin Target Ranges: 15-20 mcg/ml Vancomycin Load Y/N: No Load Dose Date Time Vancomycin Load Dose: Date: Time: Vancomycin Dose Date: 04/24/18. Current Vancomycin Dose: [1g given after hemodialysis on dialysis days] Intermittent Dosing?: Yes Labs Micro Microbiology 04/21/18 Blood Culture - Preliminary, Resulted No Growth after 72 hours. All specime... 04/21/18 Blood Culture - Preliminary, Resulted No Growth after 72 hours. All specime... 04/24/18 MRSA Screen, Received Pending 04/23/18 Respiratory Virus Panel (PCR) ([facility]) - Final, Complete 04/21/18 Gram Stain - Final, Complete 04/21/18 Sputum Culture - Final, Complete Yeast Like Organism Creatinine Clearance Date:04/24/18. Est Creatinine Clearance: [~11ml/min]. Pending Labs Random vancomycin level scheduled 04/25/18 @0500 Assessment and Plan Maintaining Current Dose?: Yes Reason for dose change: No Dose Change Pharmacist Note Pharmacist Note 04/25/18: Vancomycin random this morning resulted at 13.3mcg/ml after receiving 1g of vancomycin after yesterdays dialysis session in which ~1500mL was removed. As a result we will provide the patient with an additional 500mg dose to be given this morning in order to achieve therapeutic levels for the empiric coverage of pneumonia. A follow-up random vancomycin level has been scheduled to be drawn tomorrow with morning labs, prior to tomorrow's scheduled dialysis. We will continue to monitor and further adjust dosing if needed. Date: 04/24/18. Pharmacist note: Day #1 empiric vancomycin therapy initiated with a 1g dose given today after hemodialysis for the treatment of possible pneumonia - aiming for a goal level of 15-20mcg/ml. The patient is normally has a Monday, Monday, Monday dialysis schedule but is being transitioned to a Monday, , Monday schedule. The patient was dialyzed yesterday, and is again receiving dialysis today. WBC continues to rise and the patient is spiking fevers despite having been on Aztreonam since 04/21/18. Sputum culture grew moderate yeast. An MRSA screen is currently pending. A random vancomycin level has been scheduled to be drawn tomorrow, 04/25/18, with morning labs. We will continue to monitor and make dose adjustments accordingly. MARK GLEASON PHARMACY Apr 25, 2018 06:14
[2018-04-25 08:21] LABS: C REACTIVE PROTEIN QUANTITATIV 9.19 MG/DL (0.00-0.30)
--- NOTE | 2018-04-25 08:26 | REP ---
CT chest without contrast: History: Rule out pneumonia. Comparison chest CT study April 19, 2018. CT findings: There are small bilateral pleural effusions which have increased bilaterally in the interval since the April 19, 2018 study. Granulomatous calcification persists in the left upper lobe. There are scattered normal-sized mediastinal lymph nodes unchanged. Status post median sternotomy, aortic valve stent graft placement and pacemaker. Cardiomegaly. No pericardial effusion is seen. No new pulmonary parenchymal infiltrate is seen. Impression: Increasing bilateral small pleural effusions. No new infiltrate. Electronically Signed by Micah Samuels MD 04/25/2018 09:51 A
--- NOTE | 2018-04-25 08:28 | REP ---
CT ABDOMEN AND PELVIS WITHOUT IV OR ORAL CONTRAST: HISTORY: Rule out abscess or pyelonephritis. No comparison abdomen CT study. FINDINGS: There are small bilateral pleural effusions. No upper abdominal ascites is seen. The liver and spleen are normal in size. There is a left hepatic cyst measuring 1.4 cm in greatest diameter. No other focal liver lesion is seen. Calcified gallstones are visible in the dependent portion of the gallbladder. No adrenal lesion is seen. No pancreatic abnormality is observed. There is no evidence of hydronephrosis or renal mass on either side. There is a cyst in the right kidney posteriorly at its mid pole level measuring 4.0 cm in greatest diameter. There are other tiny peripheral cortical cysts bilaterally. No inflammatory changes are seen. Small and large intestinal bowel loops are unremarkable. There is a minimal amount of fluid in the pelvic reflections adjacent to the rectosigmoid. There is no evidence of abscess. There is a small quantity of low density consistent with fluid and calcifications which appear to be a lymph node calcifications in the right groin soft tissues. These changes may be post herniorrhaphy change. No abdominal wall defect is seen. IMPRESSION: There is no evidence of intra-abdominal abscess. Cholelithiasis is seen. Small bilateral pleural effusions are noted. There is a right renal cyst. Electronically Signed by Micah Samuels MD 04/25/2018 01:12 P
--- NOTE | 2018-04-25 08:29 | REP ---
Chest x-ray: Two views. Three: Leukocytosis. Comparison chest x-ray: April 19, 2018. Findings: The patient is status post prior median sternotomy and aortic valve replacement. Pacemaker is noted. Heart size is enlarged but unchanged from the April 19, 2018 study. There is a new right central venous tunnel catheter in place with its tip in the expected location of the superior vena cava. There is no evidence of pneumothorax. There is blunting of the pleural angles bilaterally consistent with small bilateral pleural effusions. No new infiltrate. Electronically Signed by Micah Samuels MD 04/25/2018 08:21 A
[2018-04-25] MEDS: APIXABAN 2.5 MG TAB (ELIQUIS) PO SCH ×2 (08:56→20:51)
[2018-04-25] MEDS: EZETIMIBE 10 MG TAB (ZETIA) PO SCH (08:56)
[2018-04-25] MEDS: OMEPRAZOLE 20 MG CAP PO SCH ×2 (08:56→20:51)
[2018-04-25] MEDS: HumaLOG INSULIN (NovoLOG) PER UNIT SC SCH ×4 (08:56→21:00)
[2018-04-25] MEDS: MULTIVITAMINS/MINERALS THERAP 1 TAB PO SCH (08:57)
[2018-04-25] MEDS ORDERED: VANCOMYCIN HCL 500 MG in D5W MINI-BAG PLUS 100 ML IV ONE (09:00)
[2018-04-25 09:12] LABS: BASOPHILS 1 % (0-4); EOSINOPHILS 22 % (0-5); LYMPHOCYTES 15 % (16-52); MONOCYTES 2 % (0-8); NEUTROPHILS 60 % (35-75); PLATELET ESTIMATE DECREASED (NORMAL)
[2018-04-25 09:13] LABS: ERYTHROCYTE SEDIMENTATION RATE 52 mm/hr (0-30)
--- NOTE | 2018-04-25 12:20 | IPN ---
DATE OF SERVICE: 04/25/2018 SUBJECTIVE: The patient was seen and examined at the bedside today morning. He is afebrile, hemodynamically stable. He still has leukocytosis. He was dialyzed yesterday. He tolerated the hemodialysis procedure well. 1.5 liters of fluid was removed. He reports that his shortness of breath is better today as compared with yesterday. There are no signs of renal recovery. OBJECTIVE: Vital signs: Temperature is 98.3 degrees Fahrenheit, blood pressure 119/57, pulse is 64, respiratory rate of 20, saturating 97% on room air. Intake and output: His urine output recorded is only 150 mL yesterday. Ultrafiltration with hemodialysis was 1.5 liters yesterday. Weight in the bed scale is 79.9 kg. PHYSICAL EXAMINATION: General: The patient is awake, alert, oriented times three, sitting up in the sofa, in no apparent distress. Head and neck examination: Extraocular muscles intact. Pupils equally round and reactive to light. Mucous membranes are moist. Neck is supple. There is no jugular venous distention (JVD). Cardiovascular: S1, S2. Regular rate. 1+ edema of the bilateral lower extremities. Right internal jugular (vein) (IJ) tunneled hemodialysis catheter was noted. Respiratory: Chest is clear to auscultation bilaterally. Bilateral equal air entry. No rales or rhonchi. Abdomen is soft, obese, positive bowel sounds. Nontender. No organomegaly. Musculoskeletal: No clubbing or cyanosis. Pulses are 2+. Central nervous system (SIDE GUIDER): No focal deficit. Power is 5/5 in all extremities. LABORATORY REVIEW: Complete blood count (CBC) showed a WBC of 21, hemoglobin 8.8, platelets are 65. Basic metabolic profile (BMP) showed sodium 142, potassium 4.1, chloride 112, bicarbonate 22, BUN 31, creatinine is 3.3, lactic acid 1.9, calcium is 7.8, C-reactive protein was 9.1 MICROBIOLOGY: Blood cultures are pending. IMAGING: CAT scan of the chest was done today morning, which showed increased bilateral small pleural effusions. No new infiltrates. CAT scan of the abdomen and pelvis was done, which showed no evidence of intraabdominal abscesses. Cholelithiasis is seen. CURRENT INPATIENT MEDICATIONS: The patient's medications are all reviewed by me. He continues to be on vancomycin with hemodialysis. There is no change in the medications today as compared with yesterday. ASSESSMENT AND PLAN: 1. Acute renal failure superimposed on chronic kidney disease stage IV. The patient was dialyzed yesterday. He is dialysis dependent. Next hemodialysis will be done tomorrow. He is awaiting placement at outpatient dialysis center. 2. Leukocytosis. The patient still has persistent leukocytosis. Cultures are negative so far. Imaging has not shown any source of infection. He continues to be empirically on intravenous (IV) vancomycin with dialysis and oral Levaquin. If leukocytosis does not improve, then I would change the dialysis filter. 3. Anemia secondary to iron-deficiency and end-stage renal disease. The patient is receiving Aranesp and IV Venofer with dialysis. No need of blood transfusion at this time. 4. Thrombocytopenia. The patient's aspirin was stopped. He continues to be on Eliquis. No etiology of thrombocytopenia is known at this point. However, if thrombocytopenia does not start improving, then dialysis filter membrane will be changed. 5. Chronic atrial fibrillation (AFib). Heart rate is controlled at this time. Continue current dose of Eliquis and metoprolol at this point. 6. Congestive heart failure. Volume status is being optimized with dialysis. Further fluid will be removed tomorrow morning during dialysis.
[2018-04-25 14:00] VITALS: BP 123/59
[2018-04-25] MEDS ORDERED: E-Z-PAQUE 96% w/w SUSP 176GM BTL As Ordered ONE (14:17)
[2018-04-25] MEDS ORDERED: BARIUM SULFATE 700 MG TABLET (E-Z-DISK) As Ordered ONE (14:17)
--- NOTE | 2018-04-25 15:48 | NUR ---
Pt seen for bedside swallow evaluation d/t persistent cough throughout intake as reported by nursing. Upon interview, Pt presented with cough throughout conversation. Pt observed to have cough throughout PO trials. Unable to determine if overt s/s of actually aspiration/penetration. Further testing needed. MD please consider Modified Barium Swallow Study. Continue current diet as regular solids and regular thin liquids Addendum: 04/25/18 at 1550 by POLA OLIVER JULIA Amended: Links added.
[2018-04-25] MEDS: **VANCO AFTER HD** MISC XX SCH (16:00)
--- NOTE | 2018-04-25 16:03 | NUR ---
Pt seen for modified barium swallow study as clinical study resulted in unable to determine. All trials within normal limits. Noted that Pt has had a difficult time with a/p transfer when barium tablet presented. Recommend: Regular solids and regular thin liquids. Crush meds or provide liquid form. If meds must be given whole, please give 1 at a time in puree item. Addendum: 04/25/18 at 1605 by POLA SMITH [facility] JULIA Amended: Links added.
--- NOTE | 2018-04-25 17:21 | REP ---
COOKIE SWALLOW The procedure was performed under the direct supervision of Dr. Samuels. The procedure was performed with Kaylen Tomlinson from speech pathology present. 5 ml aliquots of thin, pudding, mixed fruit and solid consistency barium was administered. There is no evidence of penetration or aspiration. The detailed report of this examination will be provided by speech pathology. 2.3 minutes of fluoroscopy time was utilized for this procedure. Reviewed by SAMUEL Arauz 04/25/2018 03:51 P Electronically Signed by Micah Samuels MD 04/25/2018 05:12 P
--- NOTE | 2018-04-25 18:47 | IPNPDOC ---
Date Seen The patient was seen on 04/25/18. Progress Note Subjective: Despite white count of 21, and tmax 101 on 04/23/18, ct chest, abd pelvis negative for acute infection. pt has been noted to cough everytime he eats with white thick sputum. sputum cx: yeast. no consolidation or infiltrate. Barium swallow: no aspiration. No diarrhea. Infectious disease has been consulted. Objective: Vitals (See below) General: Lying in bed, no acute distress, comfortable, AAOx3 HEENT: NC, AT CVS: RRR, +S1S2 Lungs: Fair air entry b/l, no evidence of wheezing / rales / rhonchi Abdomen: Soft, non-distended without tenderness Extremities: No evidence of edema, - Calf tenderness Assessment and plan:Patient is an 87-year-old male with a PMHx of A. fib (on Eliquis), CAD s/p CABG, HTN, DM2, Gout, GERD / Rodriguez's esophagus who presented to the ER with complaints of generalized weakness and decreased urine production. Patiently recently had an EGD and colonoscopy about 4 days ago and since that point has been experiencing symptoms. His history is also significant for a one-week requirement of dialysis after he had a hernia operation that caused him to develop ATN. Upon arrival to the emergency room, patient was found to have an elevated creatinine and was admitted to hospitalist service for further evaluation and treatment. Nephrology was called on consultation. Patient was seen and examined at the bedside. Patient still reports a cough. De nies any chest pain or palpitations. Does not report any difficulty breathing. He does note diffuse itch throughout his body. Denies any nausea, vomiting, abdominal pain, constipation, or diarrhea. Patient does have a Carrion catheter in place. 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 - likely 2/2 pre-renal etiology, possibly 2/2 intra-rental etiology - 2/2 ATN - Patient has had a history of hemodialysis for ATN after hernia repair operation - Patient has been following with nephrology as an outpatient and has indicated that they wanted him to have an AV fistula placed for dialysis - Currently, patient is not having any evidence of fluid overload - Lab work without any electrolyte abnormalities, acid-base abnormalities or uremia - s/p PermaCath placement; s/p HD; will go for additional HD tomorrow - Nephrology is on consultation - Vascular surgery on consult;s/p AV fistula Leukocytosis of unknown etiology s/p aztreonam on vanco and levaquin CT thorax abd pelvis negative blood cx neg mrsa screen pending respiratory panel negative sputum cx yeast tmax 101 04/23/18 ID consulted. Macrocytic anemia - No evidence of bleeding - B12 and Folate levels noted - Will continue to follow Hg trend Thrombocytopenia - etiology unclear - No evidence of bleeding - Will continue to follow s/p Hyponatremia - possibly 2/2 hypotonic hypervolemic etiology A. fib - s/p Carvedilol; c/w metoprolol tartrate with holding parameters - Currently on full anticoagulation with Eliquis CAD s/p CABG - c/w ASA HTN - BP well controlled - s/p Carvedilol; c/w metoprolol tartrate DLP - c/w Ezetimibe and Simvastatin DM2 - c/w ISS Gout - Currently not on medications GERD / Rodriguez's esophagus with c/o dysphagia unable to take his pills - c/w Omeprazole no signs of aspiration on barium swallow DVT prophylaxis - On full anticoagulation with Eliquis disposition: pt says his son who works for an [employer] in the [facility] is available for one month to assist with transporting him to and from dialysis as outpt. He has a daughter in [place] who is a dentist and is off on Monday. VS, I&O, 24H, Fishbone Vital Signs/I&O Vital Signs Date Time Temp Pulse Resp B/P (MAP) Pulse Ox O2 Delivery O2 Flow Rate FiO2 04/25/18 17:49 65 123/59 04/25/18 14:00 97.7 16 95 04/19/18 20:36 Room Air I&O- Last 24 Hours up to 6 AM 04/25/18 06:00 Intake Total 840 ml Output Total 1600 ml Balance -760 ml Laboratory Data 24H LABS Laboratory Tests 2 04/24/18 19:43: Bedside Glucose (Misc Panel) 321H 04/25/18 05:21: Neutrophils (%) (Auto) , Lymphocytes (%) (Auto) , Monocytes (%) (Auto) , Eosinophils (%) (Auto) , Basophils (%) (Auto) , Nucleated Red Blood Cells % (auto) 0.3H, Neutrophils 60, Lymphocytes (Manual) 15L, Monocytes (Manual) 2, Eosinophils (Manual) 22H, Basophils (Manual) 1, Red Blood Cell Morphology NORMAL, Platelet Estimate DECREASED, Erythrocyte Sedimentation Rate 52H, Anion Gap 8, Glomerular Filtration Rate 19.0L, Blood Urea Nitrogen 31H, Creatinine 3.31H, Sodium Level 142, Potassium Level 4.1, Chloride Level 112H, Carbon Dioxide Level 22, Calcium Level 7.8L, C-Reactive Protein, Quantitative 9.19H, Random Vancomycin Level 13.3 04/25/18 07:20: Lactic Acid Level 1.9 04/25/18 11:32: Bedside Glucose (Misc Panel) 238H 04/25/18 16:23: Bedside Glucose (Misc Panel) 174H CBC/BMP Laboratory Tests 04/25/18 05:21 Red Blood Count 2.76 L, Mean Corpuscular Volume 99.6 H, Mean Corpuscular Hemoglobin 31.9, Mean Corpuscular Hemoglobin Concent 32.0, Red Cell Distribution Width 18.6 H, Calcium Level 7.8 L Microbiology Microbiology 04/25/18 Blood Culture, Received Pending 04/25/18 Blood Culture, Received Pending 04/21/18 Blood Culture - Preliminary, Resulted No Growth after 72 hours. All specime... 04/21/18 Blood Culture - Preliminary, Resulted No Growth after 72 hours. All specime... 04/24/18 MRSA Screen, Received Pending 04/23/18 Respiratory Virus Panel (PCR) (JENN) - Final, Complete 04/21/18 Gram Stain - Final, Complete 04/21/18 Sputum Culture - Final, Complete Yeast Like Organism VINAY ELLIOTT MD Apr 25, 2018 18:47
[2018-04-25] MEDS: SIMVASTATIN 40 MG TAB PO SCH (20:51)
[2018-04-25 22:00] VITALS: BP 107/51
[2018-04-26] MEDS: EZETIMIBE 10 MG TAB (ZETIA) PO SCH (05:46)
[2018-04-26] MEDS: METOPROLOL TART 12.5 MG PER 1/2 TAB PO SCH ×4 (05:46→17:25)
[2018-04-26] MEDS: MULTIVITAMINS/MINERALS THERAP 1 TAB PO SCH (05:46)
[2018-04-26] MEDS: OMEPRAZOLE 20 MG CAP PO SCH (05:46)
[2018-04-26] MEDS: APIXABAN 2.5 MG TAB (ELIQUIS) PO SCH ×2 (05:47→20:52)
[2018-04-26 06:00] VITALS: BP 120/56
[2018-04-26 06:36] LABS: HEMATOCRIT 27.2 % (42.0-52.0); HEMOGLOBIN 8.5 g/dl (13.5-17.5); MEAN CORPUSCULAR HEMOGLOBIN 31.5 pg (27.0-33.0); MEAN CORPUSCULAR HGB CONC 31.3 g/dl (32.0-36.5); MEAN CORPUSCULAR VOLUME 100.7 fl (80.0-96.0); WHITE BLOOD COUNT 22.4 10^3/uL (4.0-10.0)
[2018-04-26 06:47] LABS: PLATELET COUNT, AUTOMATED 62 10^3/uL (150-450)
[2018-04-26 06:52] LABS: CALCIUM LEVEL 8.8 MG/DL (8.8-10.2); CREATININE FOR GFR 4.28 MG/DL (0.70-1.30); GLOMERULAR FILTRATION RATE 14.1 (>35); POTASSIUM SERUM 4.4 MEQ/L (3.5-5.1); VANCOMYCIN RANDOM 14.3 UG/ML
[2018-04-26] MEDS: HumaLOG INSULIN (NovoLOG) PER UNIT SC SCH ×4 (07:44→20:52)
[2018-04-26 08:05] LABS: C REACTIVE PROTEIN QUANTITATIV 3.76 MG/DL (0.00-0.30)
[2018-04-26 08:53] LABS: ERYTHROCYTE SEDIMENTATION RATE 43 mm/hr (0-30)
[2018-04-26] MEDS ORDERED: HEPARIN 1,000 UNITS/ML 10ML VIAL (FOR RADIOLOGY& DIALYSIS ONLY) XX ONE (09:45)
[2018-04-26] MEDS: ACETAMINOPHEN TAB 650MG DOSE (2X325MG) PO PRN (11:02)
[2018-04-26] MEDS: diphenhydrAMINE 12.5MG/5ML ELIXIR UDC PO PRN (11:02)
--- NOTE | 2018-04-26 12:40 | IPN ---
DATE OF SERVICE: 04/26/2018 SUBJECTIVE: The patient was seen and examined at the bedside today morning. He is afebrile, hemodynamically stable. He reports that his shortness of breath is better today as compared with yesterday. He denies any fevers or chills. He continues to have mild persistent leukocytosis. OBJECTIVE: Vital signs: Temperature is 97.5 degrees Fahrenheit, blood pressure 120/56, pulse is 64, respiratory rate of 18, saturating 95% on room air. Intake and output: His urine output recorded is only 60 mL yesterday. Weight in the bed scale was 79.9 kg yesterday. PHYSICAL EXAMINATION: General: The patient is awake, alert, oriented times three, sitting up in the bed, in no apparent distress. Head and neck examination: Extraocular muscles intact. Pupils equally round and reactive to light. Mucous membranes are moist. Neck is supple. There is no jugular venous distention (JVD). He has a right internal jugular (vein) (IJ) tunneled hemodialysis catheter. Cardiovascular: S1, S2. Regular rate. Trace edema of the bilateral lower extremities. Respiratory: Chest is clear to auscultation bilaterally. Bilateral equal air entry. No rales or rhonchi. Abdomen is soft, positive bowel sounds. Nontender. No organomegaly. Musculoskeletal: No clubbing or cyanosis. Pulses are 2+. Central nervous system (TYPEWRITER ALIGNER): No focal deficit. Power is 5/5 in all extremities. LABORATORY REVIEW: Complete blood count (CBC) showed a WBC of 22.4, hemoglobin 8.5, platelets are 62. Basic metabolic profile (BMP) showed sodium 140, potassium 4.4, chloride 109, bicarbonate 21, BUN 48, creatinine is 4.2, calcium is 8.8. MICROBIOLOGY: Blood cultures are negative so far. IMAGING: CAT scan of the abdomen and pelvis was done yesterday, which showed no evidence of intraabdominal abscesses. Cookie swallow test was done yesterday. There was no evidence of penetration or aspiration. CURRENT INPATIENT MEDICATIONS: The patient's medications are all reviewed by me. He continues to be on intravenous (IV) vancomycin with hemodialysis. He is also on Levaquin. Last dose is on 05/01/2018. There is no other change in the medications today as compared with yesterday. ASSESSMENT AND PLAN: 1. End-stage renal disease. The patient is dialysis dependent now. He will be dialyzed again today. Ultrafiltration goal will be 1.5 liters as tolerated by his blood pressure. He is awaiting placement at outpatient dialysis center. 2. Leukocytosis. The patient has mild persistent leukocytosis. All the cultures are negative. Empirically, he is being covered with vancomycin and Levaquin. 3. Anemia secondary to iron deficiency and end-stage renal disease. Hemoglobin is 8.5, which is still suboptimal. Continue current dose of Aranesp and Venofer with hemodialysis. 4. Thrombocytopenia. The patient has mild persistent thrombocytopenia. Protonix dose is being decreased to once a day. If his platelet count drops after dialysis, then dialysis filter membrane will be changed. 5. Chronic atrial fibrillation (AFib). Continue current dose of Eliquis and metoprolol.
[2018-04-26 15:22] VITALS: BP 134/53
[2018-04-26] MEDS: **VANCO AFTER HD** MISC XX SCH ×2 (15:47→16:00)
[2018-04-26] MEDS: VANCOMYCIN HCL 1,000 MG, VIAL MATE ADAPTER 1 EACH in D5W 250 ML IV SCH (15:47)
[2018-04-26] MEDS: LevoFLOXacin 500 MG TABLET PO SCH (17:25)
--- NOTE | 2018-04-26 20:37 | IPNPDOC ---
Date Seen The patient was seen on 04/26/18. Progress Note Subjective: No c/o chills, abd pain, nausea, vomiting. flank pain, or shortness of breath. Despite white count of 21, and tmax 101 on 04/23/18, ct chest, abd pelvis negative for acute infection. pt has been noted to cough everytime he eats with white thick sputum. sputum cx: yeast. urine cx: yeast. ct chest: no consolidation or infiltrate. Barium swallow: no aspiration. No diarrhea. ID has checked procalcitonin which is still pending. Pt is anxious to go home. Objective: Vitals (See below) General: Lying in bed, no acute distress, comfortable, AAOx3 HEENT: NC, AT CVS: RRR, +S1S2 Lungs: Fair air entry b/l, no evidence of wheezing / rales / rhonchi Abdomen: Soft, non-distended without tenderness Extremities: No evidence of edema, - Calf tenderness Assessment and plan:Patient is an 87-year-old male with a PMHx of A. fib (on Eliquis), CAD s/p CABG, HTN, DM2, Gout, GERD / Rodriguez's esophagus who presented to the ER with complaints of generalized weakness and decreased urine production. Patiently recently had an EGD and colonoscopy about 4 days ago and since that point has been experiencing symptoms. His history is also significant for a one-week requirement of dialysis after he had a hernia operation that caused him to develop ATN. Upon arrival to the emergency room, patient was found to have an elevated creatinine and was admitted to hospitalist service for further evaluation and treatment. Nephrology was called on consultation. Patient was seen and examined at the bedside. Patient still reports a cough. Denies any chest pain or palpitations. Does not report any difficulty breathing. He does note diffuse itch throughout his body. Denies any nausea, vomiting, abdominal pain, constipation, or diarrhea. Patient does have a Carrion catheter in place. 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 - Lab work without any electrolyte abnormalities, acid-base abnormalities or uremia - s/p PermaCath placement; s/p HD - Nephrology is on consultation - Vascular surgery on consult;s/p AV fistula Leukocytosis of unknown etiology s/p aztreonam on vanco and levaquin CT thorax abd pelvis negative blood cx neg mrsa screen pending respiratory panel negative sputum cx yeast tmax 101 04/23/18 ID: checked procalcitonin to check for infectious etiology Macrocytic anemia - No evidence of bleeding - B12 and Folate levels noted - Will continue to follow Hg trend Thrombocytopenia - etiology unclear - No evidence of bleeding - Will continue to follow s/p Hyponatremia - possibly 2/2 hypotonic hypervolemic etiology A. fib - s/p Carvedilol; c/w metoprolol tartrate with holding parameters - Currently on full anticoagulation with Eliquis CAD s/p CABG - c/w ASA HTN - BP well controlled - s/p Carvedilol; c/w metoprolol tartrate DLP - c/w Ezetimibe and Simvastatin DM2 - c/w ISS Gout - Currently not on medications GERD / Rodriguez's esophagus with c/o dysphagia unable to take his pills - c/w Omeprazole no signs of aspiration on barium swallow DVT prophylaxis - On full anticoagulation with Eliquis disposition:Pt is anxious to go home soon. Workup for leukocytosis is still ongoing. Currently on empiric rx with vanco and levaquin. Awaiting if ID will clear the patient for discharge. pt says his son who works for an [employer] in the [facility] is available for two more weeks to assist with transporting him to and from dialysis as outpt. He has a daughter in [place] who is a dentist and is off on Wednesdays. VS, I&O, 24H, Fishbone Vital Signs/I&O Vital Signs Date Time Temp Pulse Resp B/P (MAP) Pulse Ox O2 Delivery O2 Flow Rate FiO2 04/26/18 17:25 62 134/53 04/26/18 15:22 97.7 20 95 I&O- Last 24 Hours up to 6 AM 04/26/18 06:00 Intake Total 610 ml Output Total 60 ml Balance 550 ml Laboratory Data 24H LABS Laboratory Tests 2 04/25/18 20:35: Urine Color MARISSA, Urine Appearance HAZY, Urine pH 5.0, Urine Specific [place] 1.019, Urine Protein 2+H, Urine Glucose (UA) NEGATIVE, Urine Ketones NEGATIVE, Urine Blood NEGATIVE, Urine Nitrite NEGATIVE, Urine Bilirubin NEGATIVE, Urine Urobilinogen 0.2, Urine Leukocyte Esterase TRACEH, Urine WBC (Auto) 6H, Urine RBC (Auto) 1, Urine Hyaline Casts (Auto) 8, Urine Bacteria (Auto) 1+H, Urine Squamous Epithelial Cells 1, Urine Mucus (Auto) SMALL, Urine Sperm (Auto) 04/25/18 20:45: Bedside Glucose (Misc Panel) 197H 04/26/18 05:31: Nucleated Red Blood Cells % (auto) 0.2H, Differential Slide Review Report, Immature Platelet Fraction 3.5, Peripheral Blood Smear Path Consult PERIPHERAL SMEAR, Erythrocyte Sedimentation Rate 43H, Anion Gap 10, Glomerular Filtration Rate 14.1L, Blood Urea Nitrogen 48#H, Creatinine 4.28H, Sodium Level 140, Potass ium Level 4.4, Chloride Level 109H, Carbon Dioxide Level 21, Calcium Level 8.8, C-Reactive Protein, Quantitative 3.76H, Random Vancomycin Level 14.3 04/26/18 15:13: Bedside Glucose (Misc Panel) 142H 04/26/18 16:59: Bedside Glucose (Misc Panel) 169H CBC/BMP Laboratory Tests 04/26/18 05:31 Red Blood Count 2.70 L, Mean Corpuscular Volume 100.7 H, Mean Corpuscular Hemoglobin 31.5, Mean Corpuscular Hemoglobin Concent 31.3 L, Red Cell Distr ibution Width 19.1 H, Calcium Level 8.8 Microbiology Microbiology 04/25/18 Blood Culture - Preliminary, Resulted No growth after 24 hours . All specim... 04/25/18 Blood Culture - Preliminary, Resulted No growth after 24 hours . All specim... 04/21/18 Blood Culture - Final, Complete NO GROWTH AFTER 5 DAYS 04/21/18 Blood Culture - Final, Complete NO GROWTH AFTER 5 DAYS 04/24/18 MRSA Screen - Final, Complete 04/23/18 Respiratory Virus Panel (PCR) (JENN) - Final, Complete 04/21/18 Gram Stain - Final, Complete 04/21/18 Sputum Culture - Final, Complete Yeast Like Organism 04/25/18 Urine Culture - Preliminary, Resulted Yeast Like Organism VINAY ELLIOTT MD Apr 26, 2018 20:37
[2018-04-26] MEDS: SIMVASTATIN 40 MG TAB PO SCH (20:52)
--- NOTE | 2018-04-26 21:09 | CR ---
DATE OF CONSULTATION: 04/26/2018 INFECTIOUS DISEASE CONSULTATION Asked to consult by hospitalist for evaluation of fever in a patient who developed oliguric renal failure with history of chronic kidney disease. HISTORY OF PRESENT ILLNESS: Mr. Lee is an 87-year-old gentleman who had endoscopy and colonoscopy done by Dr. Pina on 04/17/2018 as a workup for rectal bleeding. The patient had moderately severe reflux esophagitis with moderate esophageal stenosis but no metaplasia, and a small 5 mm adenomatous polyp at the splenic flexure. The patient the next day was not feeling well. He had decreased urine output and generalized weakness. He has a history of stage IV chronic kidney disease. He was seen by his primary care provider. He had a creatinine of 7 with his weakness. He was admitted to the hospital for hydration and possible need for dialysis. The patient had a similar episode in November when he had a hernia repair at [facility] following which se was hospitalized for 2 weeks and was started on hemodialysis. The patient was being worked up for an arteriovenous (AV) fistula to be done by Dr. Danielson as an outpatient but that was done during this hospitalization as well. He had two episodes of fever of 100.4 on 04/21/2018 and then 101.2 on 04/23/2018. The patient states that he has this nagging cough for the past 6 weeks for which he had been worked up as an outpatient. His chest x-ray only showed marked cardiomegaly and edema in February. He was told he had bronchitis, but he is being evaluated by a swallow evaluation with speech therapy for swallowing as there is concern about aspiration. Since admission, he received vancomycin on 04/21/2018 and Levaquin; he received three doses. Cultures have all remained negative. PAST MEDICAL HISTORY: Significant for type 2 diabetes, hypertension, coronary artery disease, status post coronary artery bypass graft (CABG), gastroesophageal reflux disease, atrial fibrillation - on Eliquis, gout, history of stage IV chronic kidney disease and currently on hemodialysis, iron deficiency anemia for which he gets IV iron, moderately severe reflux esophagitis with moderate esophageal stenosis and a 5 mm adenomatous polyp. History of prostate cancer, status post radiation, diagnosed in 2003. PAST SURGICAL HISTORY: CABG, pacemaker placement, TAVR, Perma-Cath placed in the hospital right upper chest and AV fistula by Dr. Danielson, bilateral cataract surgery done in 2014. ALLERGIES: PENICILLIN and PRASUGREL. SOCIAL HISTORY: He is a former smoker. He lives in independent living longterm housing in [place]. His daughter is a dentist and is his support. He quit smoking. Does not use drugs or alcohol. MEDICATIONS: Omeprazole 20 mg by mouth daily, levofloxacin 500 mg by mouth every 48 hours, Aranesp 100 mcg IV with hemodialysis, Venofer 100 mg IV with hemodialysis, Benadryl as needed for itching, metoprolol 12.5 mg by mouth every 6 hours, multivitamin one tablet by mouth daily, calcitriol 0.25 mg Monday, Monday, Zetia 10 mg by mouth daily, insulin sliding scale, Zofran, apixaban 2.5 mg by mouth twice a day, Zocor 40 mg by mouth daily, glucose 16 as needed. LABORATORY: White count on admission was 17.4, today it is 22.4, hemoglobin 8.5, hematocrit 27.2, MCV 100.7, platelets 62, which has dropped from 134 on admission. ESR was 52, down to 43. Sodium 140, potassium 4.4, chloride 109, bicarbonate 21, BUN 48, creatinine 4.28, glucose 160, calcium 8.8, lactic acid was 1.9, CRP 9.19 down to 3.76, hepatitis B and C were negative. Urinalysis has trace leukocyte esterase, 6 white cells, +1 bacteria. IMAGING: Abdominal CT shows bilateral pleural effusion with cholelithiasis. No evidence of infection. No abscess. Chest CT shows bilateral pleural effusions. No infection and calcified granuloma. Chest x-ray on admission, PA and lateral, shows an 8 mm left upper lung nodule and aortic valve transcatheter placement and chronic interstitial changes. On physical exam, he is a pleasant elderly gentleman in no acute distress. Temperature is 97.7, pulse 62, respirations 20, blood pressure 134/53, oxygen saturation (O2 sat) 95% on room air. Heart: Normal S1, S2 with a systolic ejection murmur 2/6 in the left upper sternal border. Lungs: Slightly diminished breath sounds at the bases but clear. No wheezes, rales or rhonchi. Abdomen: Obese, soft, nontender. Extremities: +1 pitting edema bilaterally. He has petechial lesions on lower extremities. Oropharynx is clear with no thrush. General appearance: Healthy looking elderly gentleman sitting in his chair, able to give us a good history. Oropharynx: No lesions. Pupil equal and reactive. He has upper and lower dentures. Neurologic: Exam: Alert, oriented times three. Motor strength is completely normal. Musculoskeletal exam: He has a right total knee replacement with normal range of motion of both knees. No evidence of infection. IMPRESSION: This is an 87-year-old gentleman who was admitted for oliguric renal failure. He has a history of chronic kidney disease and now he has required hemodialysis. This occurred after he had a colonoscopy and endoscopy, probably dehydration or acute tubular necrosis (ATN). The patient also had a rash, which he had been treated for with steroids. The etiology of that rash has not been investigated as of yet. Concerning is that he has a persistent leukocytosis and worsening thrombocytopenia, which needs further workup. I do not see any bacterial etiology for his leukocytosis. At this point, he has received 5 days of antibiotics including vancomycin and levofloxacin with no improvement in white count. Blood cultures two sets done on 04/21/2018 were negative, 04/25/2018 two sets were negative. Sputum culture only had yeastlike organism. This is usually an oral contaminant. Respiratory panel was negative. Methicillin-resistant Staphylococcus aureus (MRSA) screen is negative. PLAN: Would suggest discontinuing IV vancomycin. Consider even discontinuing oral Levaquin. I do not think he has pneumonia. I think the cause of his fever might be possibly aspiration and aspiration pneumonitis. He had two isolated fevers, one on 04/21/2018 and one on 04/23/2018. Consider obtaining a skin biopsy for further workup of his rash and consult Dr. Juan if the rash is still a concern.
[2018-04-26 22:00] VITALS: BP 117/56
[2018-04-27] MEDS: METOPROLOL TART 12.5 MG PER 1/2 TAB PO SCH ×4 (00:46→17:51)
[2018-04-27 06:00] VITALS: BP 128/58
[2018-04-27 06:21] LABS: HEMATOCRIT 27.3 % (42.0-52.0); HEMOGLOBIN 8.7 g/dl (13.5-17.5); MEAN CORPUSCULAR HEMOGLOBIN 31.3 pg (27.0-33.0); MEAN CORPUSCULAR HGB CONC 31.9 g/dl (32.0-36.5); MEAN CORPUSCULAR VOLUME 98.2 fl (80.0-96.0); RED BLOOD COUNT 2.78 10^6/uL (4.30-6.10); WHITE BLOOD COUNT 20.4 10^3/uL (4.0-10.0)
[2018-04-27 06:25] LABS: PLATELET COUNT, AUTOMATED 59 10^3/uL (150-450)
[2018-04-27 06:41] LABS: C REACTIVE PROTEIN QUANTITATIV 2.32 MG/DL (0.00-0.30); CALCIUM LEVEL 7.8 MG/DL (8.8-10.2); CREATININE FOR GFR 3.34 MG/DL (0.70-1.30); GLOMERULAR FILTRATION RATE 18.8 (>35); POTASSIUM SERUM 3.9 MEQ/L (3.5-5.1)
[2018-04-27 06:49] LABS: BASOPHILS 2 % (0-4); EOSINOPHILS 35 % (0-5); LYMPHOCYTES 9 % (16-52); MONOCYTES 9 % (0-8); NEUTROPHILS 45 % (35-75)
[2018-04-27 06:50] LABS: ANISOCYTOSIS 2+; PLATELET ESTIMATE DECREASED (NORMAL); POIKILOCYTOSIS 1+; POLYCHROMASIA 1+
[2018-04-27] MEDS: CALCITRIOL 0.25 MCG CAP (S0169) PO SCH (08:32)
[2018-04-27] MEDS: HumaLOG INSULIN (NovoLOG) PER UNIT SC SCH ×4 (08:32→20:33)
[2018-04-27] MEDS: APIXABAN 2.5 MG TAB (ELIQUIS) PO SCH ×2 (08:33→20:32)
[2018-04-27] MEDS: MULTIVITAMINS/MINERALS THERAP 1 TAB PO SCH (08:33)
[2018-04-27] MEDS: OMEPRAZOLE 20 MG CAP PO SCH (08:33)
[2018-04-27] MEDS: EZETIMIBE 10 MG TAB (ZETIA) PO SCH (08:33)
--- NOTE | 2018-04-27 08:49 | IPNPDOC ---
Date Seen The patient was seen on 04/27/18. Progress Note Subjective: VANCO AND LEVAQUIN discontinued. wbc decreasing. rash is same. per pt, saw industrial/organizational psychologist in [place] 2 weeks ago and under treatment. dialysis seat arranged in [place]. anxious to go home. no new c/o sob, cp, dizizness, lightheadedness, n/v/abd pain. Objective: Vitals (See below) General: Lying in bed, no acute distress, comfortable, AAOx3 HEENT: NC, AT CVS: RRR, +S1S2 Lungs: Fair air entry b/l, no evidence of wheezing / rales / rhonchi Abdomen: Soft, non-distended without tenderness Extremities: No evidence of edema, - Calf tenderness Assessment and plan:Patient is an 87-year-old male with a PMHx of A. fib (on Eliquis), CAD s/p CABG, HTN, DM2, Gout, GERD / Rodriguez's esophagus who presented to the ER with complaints of generalized weakness and decreased urine production. Patiently recently had an EGD and colonoscopy about 4 days ago and since that point has been experiencing symptoms. His history is also significant for a one-week requirement of dialysis after he had a hernia operation that caused him to develop ATN. Upon arrival to the emergency room, patient was found to have an elevated creatinine and was admitted to hospitalist service for further evaluation and treatment. Nephrology was called on consultation. Patient was seen and examined at the bedside. Patient still reports a cough. Denies any chest pain or palpitations. Does not report any difficulty breathing. He does note diffuse itch throughout his body. Denies any nausea, vomiting, abdominal pain, constipation, or diarrhea. Patient does have a Carrion catheter in place. 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 - Lab work without any electrolyte abnormalities, acid-base abnormalities or uremia - s/p PermaCath placement; s/p HD - Nephrology is on consultation - Vascular surgery on consult;s/p AV fistula Leukocytosis of unknown etiology s/p aztreonam s/p vanco and levaquin CT thorax abd pelvis negative blood cx neg mrsa screen pending respiratory panel negative sputum cx yeast tmax 101 04/23/18 ID: checked procalcitonin to check for infectious etiology discontinued abx Macrocytic anemia - No evidence of bleeding - B12 and Folate levels noted - Will continue to follow Hg trend Thrombocytopenia - etiology unclear - No evidence of bleeding - Will continue to follow s/p Hyponatremia - possibly 2/2 hypotonic hypervolemic etiology A. fib - s/p Carvedilol; c/w metoprolol tartrate with holding parameters - Currently on full anticoagulation with Eliquis CAD s/p CABG - c/w ASA HTN - BP well controlled - s/p Carvedilol; c/w metoprolol tartrate DLP - c/w Ezetimibe and Simvastatin DM2 - c/w ISS Gout - Currently not on medications GERD / Rodriguez's esophagus with c/o dysphagia unable to take his pills - c/w Omeprazole no signs of aspiration on barium swallow DVT prophylaxis - On full anticoagulation with Eliquis dispo : dc home today VS, I&O, 24H, [facility] Vital Signs/I&O Vital Signs Date Time Temp Pulse Resp B/P (MAP) Pulse Ox O2 Delivery O2 Flow Rate FiO2 04/27/18 06:00 96.6 59 20 128/58 (81) 96 I&O- Last 24 Hours up to 6 AM 04/27/18 06:00 Intake Total 1320 ml Output Total 2000 ml Balance -680 ml Laboratory Data 24H LABS Laboratory Tests 2 04/26/18 15:13: Bedside Glucose (Misc Panel) 142H 04/26/18 16:59: Bedside Glucose (Misc Panel) 169H 04/26/18 20:31: Bedside Glucose (Misc Panel) 190H 04/27/18 05:41: Immature Granulocyte % (Auto) , White Blood Count 20.4H, Red Blood Count 2.78L, Hemoglobin 8.7L, Hematocrit 27.3L, Mean Corpuscular Volume 98.2H, Mean Corpuscular Hemoglobin 31.3, Mean Corpuscular Hemoglobin Concent 31.9L, Red Cell Distribution Width 19.2H, Platelet Count 59L, Eosinophils (%) (Auto) , Nucleated Red Blood Cells % (auto) 0.1H, Neutrophils 45, Lymphocytes (Manual) 9L, Monocytes (Manual) 9H, Eosinophils (Manual) 35H, Basophils (Manual) 2, Platelet Estimate DECREASED, Immature Platelet Fraction 3.5, Polychromasia 1+, Poikilocytosis 1+, Basophilic Stippling 1+, Anisocytosis 2+, Anion Gap 8, Glomerular Filtration Rate 18.8L, Blood Urea Nitrogen 32H, Creatinine 3.34H, Sodium Level 139, Potassium Level 3.9, Chloride Level 104, Carbon Dioxide Level 27, Calcium Level 7.8L, C-Reactive Protein, Quantitative 2.32H CBC/BMP Laboratory Tests 04/27/18 05:41 Red Blood Count 2.78 L, Mean Corpuscular Volume 98.2 H, Mean Corpuscular Hemoglo bin 31.3, Mean Corpuscular Hemoglobin Concent 31.9 L, Red Cell Distribution Width 19.2 H, Eosinophils (%) (Auto) , Calcium Level 7.8 L Microbiology Microbiology 04/25/18 Blood Culture - Preliminary, Resulted No growth after 24 hours . All specim... 04/25/18 Blood Culture - Preliminary, Resulted No Growth after 48 hours. All Specime... 04/21/18 Blood Culture - Final, Complete NO GROWTH AFTER 5 DAYS 04/21/18 Blood Culture - Final, Complete NO GROWTH AFTER 5 DAYS 04/24/18 MRSA Screen - Final, Complete 04/23/18 Respiratory Virus Panel (PCR) (JENN) - Final, Complete 04/21/18 Gram Stain - Final, Complete 04/21/18 Sputum Culture - Final, Complete Yeast Like Organism 04/25/18 Urine Culture - Final, Complete Yeast Like Organism VINAY ELLIOTT MD Apr 27, 2018 08:49
--- NOTE | 2018-04-27 12:28 | IPN ---
DATE OF SERVICE: 04/27/2018 SUBJECTIVE: The patient was seen and examined at the bedside today morning. He is afebrile and hemodynamically stable. He denies any active complaints. He was dialyzed yesterday. He tolerated 2 liters of fluid removal. Hemoglobin is improving. He continues to have thrombocytopenia. His antibiotics were stopped by infectious disease yesterday. The patient reports that he is feeling better and he is waiting to be discharged. He is awaiting placement at [facility] for outpatient dialysis. OBJECTIVE: Vital Signs: Temperature is 96.6 degrees Fahrenheit, blood pressure 128/58, pulse is 59, respiratory rate of 20, saturating 96% on room air. Intake and Output: There is no urine output recorded. Ultrafiltration with hemodialysis was 2 liters. Weight in the bed scale is not available. PHYSICAL EXAMINATION: General: The patient is awake, alert, oriented times three, laying in the bed, in no apparent distress. Head and Neck Examination: Extraocular muscles intact. Pupils equally round and reactive to light. Mucous membranes are moist. Neck is supple. There is no jugular venous distention (JVD). He has a right internal jugular (vein) (IJ) tunneled hemodialysis catheter. Cardiovascular: S1, S2. Regular rate. No edema of the bilateral lower extremities. Respiratory: Chest is clear to auscultation bilaterally. Bilateral equal air entry. No rales or rhonchi. Abdomen is soft, positive bowel sounds. Nontender. No organomegaly. Musculoskeletal: No clubbing or cyanosis. Pulses are 2+. Central Nervous System (LIVESTOCK HANDLER): No focal deficit. Power is 5/5 in all extremities. LABORATORY REVIEW: Complete blood count (CBC) showed a WBC of 20.4, hemoglobin 8.7, platelets are 59. Basic metabolic profile (BMP) showed sodium 139, potassium 3.9, chloride 104, bicarbonate 27, BUN 32, creatinine is 3.3, calcium is 7.8. C-reactive protein is 2.3 which is improving. CURRENT INPATIENT MEDICATIONS: The patient's medications were all reviewed by me. His IV vancomycin and oral Levaquin have been stopped. There is no other change in the medications today as compared with yesterday. ASSESSMENT AND PLAN: 1. End-stage renal disease. The patient is hemodialysis dependent. He was dialyzed yesterday. Next hemodialysis session will be tomorrow. The patient is on a waiting list for [facility]. He needs a spot in [place]. [facility] is waiting application. The patient still has no outpatient dialysis placement at this point. 2. Leukocytosis. Unknown etiology at this time. Predominantly patient has high eosinophil count. IV antibiotics have been stopped. If the patient's leukocytosis does not improve, then I would change the dialysis filter membrane. 3. Anemia secondary to end-stage renal disease and iron deficiency. The patient's hemoglobin is slightly improving. He continues to be on Aranesp and IV Venofer during hemodialysis. 4. Thrombocytopenia. The patient has persistent thrombocytopenia. Protonix dose was decreased. Antibiotics have been stopped. No other etiology is known at this point. Apart from possibility of allergic reaction to dialysis membrane. 5. Chronic atrial fibrillation (AFib). Continue current dose of Eliquis and metoprolol. 6. Disposition. The patient is still awaiting placement at outpatient dialysis center.
[2018-04-27 12:35] VITALS: BP 138/62
[2018-04-27 14:00] VITALS: BP 114/54
[2018-04-27] MEDS: **VANCO AFTER HD** MISC XX SCH (15:39)
[2018-04-27] MEDS: diphenhydrAMINE 12.5MG/5ML ELIXIR UDC PO PRN (20:32)
[2018-04-27] MEDS: SIMVASTATIN 40 MG TAB PO SCH (20:32)
[2018-04-27 22:00] VITALS: BP 139/69
[2018-04-28] MEDS: METOPROLOL TART 12.5 MG PER 1/2 TAB PO SCH ×4 (00:19→18:01)
[2018-04-28 06:00] VITALS: BP 112/53
[2018-04-28] MEDS: EZETIMIBE 10 MG TAB (ZETIA) PO SCH (06:21)
[2018-04-28] MEDS: OMEPRAZOLE 20 MG CAP PO SCH (06:22)
[2018-04-28] MEDS: MULTIVITAMINS/MINERALS THERAP 1 TAB PO SCH (06:22)
[2018-04-28] MEDS: ACETAMINOPHEN TAB 650MG DOSE (2X325MG) PO PRN (06:24)
[2018-04-28] MEDS: APIXABAN 2.5 MG TAB (ELIQUIS) PO SCH ×2 (06:24→21:52)
[2018-04-28 06:36] LABS: HEMATOCRIT 27.5 % (42.0-52.0); HEMOGLOBIN 8.7 g/dl (13.5-17.5); MEAN CORPUSCULAR HEMOGLOBIN 31.8 pg (27.0-33.0); MEAN CORPUSCULAR HGB CONC 31.6 g/dl (32.0-36.5); MEAN CORPUSCULAR VOLUME 100.4 fl (80.0-96.0); RED BLOOD COUNT 2.74 10^6/uL (4.30-6.10); WHITE BLOOD COUNT 16.5 10^3/uL (4.0-10.0)
[2018-04-28 06:54] LABS: CALCIUM LEVEL 7.9 MG/DL (8.8-10.2); CREATININE FOR GFR 4.07 MG/DL (0.70-1.30); POTASSIUM SERUM 4.1 MEQ/L (3.5-5.1)
[2018-04-28 07:26] LABS: PLATELET COUNT, AUTOMATED 53 10^3/uL (150-450)
[2018-04-28 07:31] LABS: EOSINOPHILS 9 % (0-5); LYMPHOCYTES 8 % (16-52); METAMYELOCYTES 2 % (0-0); MYELOCYTES 2 % (0-0); NEUTROPHILS 76 % (35-75); OVALOCYTES 1+; PLATELET ESTIMATE DECREASED (NORMAL); POIKILOCYTOSIS 1+; POLYCHROMASIA 1+
[2018-04-28 07:37] LABS: SCHISTOCYTES 1+
[2018-04-28 07:38] LABS: ANISOCYTOSIS 1+
--- NOTE | 2018-04-28 07:55 | IPN ---
DATE: 04/27/2018 Mr. Lee feels great. He wants to go home. He has no new complaints. He was describing the rash he has had for about a year now. He describes it as urticaria. He has had multiple biopsies on his abdomen and lower extremities. He follows up with a LILLIAN Pickett in [place] regarding his rash. He has had different courses of prednisone, but none recently. Currently he states the rash is not too bad. He has a little left over on his feet. He does complain of pruritus but I think that it is mostly related right now to his end-stage renal disease. PHYSICAL EXAMINATION: Temperature is 97.1, pulse 59, respirations 18, blood pressure 136/69, O2 sat 95% on room air. Heart: Normal S1-S2. Diminished breath sounds at bases. Abdomen: Soft, nontender. Extremities: +1 edema. He had a rash on both feet that is dry, erythematous. He has a few petechial lesions on the dorsal aspect of the feet that look old. He has no hives or other rashes on his abdomen or back currently. He has some scratch bautista that are erythematous blanching. LABORATORY DATA: White count is 20.4, hemoglobin 8.7, hematocrit 27.3, platelets 59, 45% neutrophils, 9% lymphocytes, 9% monocytes, 35% eosinophils, disease eosinophilia has occurred during this hospitalization, he came with a 2% eosinophil count. Sodium 139, potassium 3.9, chloride 104, bicarb 27, BUN 32, creatinine 3.34, glucose 167, calcium 7.8, CRP 2.32 down from 9.19. Sputum culture had yeastlike organism. Urine culture had yeastlike organism only 15,000. The patient does not have any urinary symptoms. IMPRESSION: Leukocytosis with eosinophilia not sure if it is an allergy to medication versus to the dialysis filter membrane. This has been discussed with Dr. Dr. Noguera who will may be exchanging the dialysis membrane if eosinophilia and thrombocytopenia do not improve. PLAN: Discontinue Levaquin and vancomycin. I do not see any source of infection. If eosinophilia and thrombocytopenia persists consider consulting hematology. We will try to obtain his dermatology records from [facility].
[2018-04-28] MEDS: HumaLOG INSULIN (NovoLOG) PER UNIT SC SCH ×4 (08:42→21:00)
[2018-04-28] MEDS ORDERED: HEPARIN 1,000 UNITS/ML 10ML VIAL (FOR RADIOLOGY& DIALYSIS ONLY) XX ONE (12:45)
[2018-04-28 14:00] VITALS: BP 133/59
[2018-04-28] MEDS: **VANCO AFTER HD** MISC XX SCH (16:00)
--- NOTE | 2018-04-28 19:10 | IPNPDOC ---
Date Seen The patient was seen on 04/28/18. Progress Note Subjective: discharge postponed while awaiting dialysis seat as outpt. VANCO AND LEVAQUIN discontinued. wbc decreasing. rash is same. per pt, saw pipe fitter maintenance in [place] 2 weeks ago and under treatment. dialysis seat still to be arranged in [place]. anxious to go home. no new c/o sob, cp, dizizness, lightheadedness, n/v/abd pain. Objective: Vitals (See below) General: Lying in bed, no acute distress, comfortable, AAOx3 HEENT: NC, AT CVS: RRR, +S1S2 Lungs: Fair air entry b/l, no evidence of wheezing / rales / rhonchi Abdomen: Soft, non-distended without tenderness Extremities: No evidence of edema, - Calf tenderness Assessment and plan:Patient is an 87-year-old male with a PMHx of A. fib (on Eliquis), CAD s/p CABG, HTN, DM2, Gout, GERD / Rodriguez's esophagus who presented to the ER with complaints of generalized weakness and decreased urine production. Patiently recently had an EGD and colonoscopy about 4 days ago and since that point has been experiencing symptoms. His history is also significant for a one-week requirement of dialysis after he had a hernia operation that caused him to develop ATN. Upon arrival to the emergency room, patient was found to have an elevated creatinine and was admitted to hospitalist service for further evaluation and treatment. Nephrology was called on consultation. Patient was seen and examined at the bedside. Patient still reports a cough. Denies any chest pain or palpitations. Does not report any difficulty breathing. He does note diffuse itch throughout his body. Denies any nausea, vomiting, abdominal pain, constipation, or diarrhea. Patient does have a Carrion catheter in place. 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 - Lab work without any electrolyte abnormalities, acid-base abnormalities or uremia - s/p PermaCath placement; s/p HD - Nephrology is on consultation - Vascular surgery on consult;s/p AV fistula Leukocytosis of unknown etiology s/p aztreonam s/p vanco and levaquin CT thorax abd pelvis negative blood cx neg mrsa screen pending respiratory panel negative sputum cx yeast tmax 101 04/23/18 ID: checked procalcitonin to check for infectious etiology discontinued abx Macrocytic anemia - No evidence of bleeding - B12 and Folate levels noted - Will continue to follow Hg trend Thrombocytopenia - etiology unclear - No evidence of bleeding - Will continue to follow s/p Hyponatremia - possibly 2/2 hypotonic hypervolemic etiology A. fib - s/p Carvedilol; c/w metoprolol tartrate with holding parameters - Currently on full anticoagulation with Eliquis CAD s/p CABG - c/w ASA HTN - BP well controlled - s/p Carvedilol; c/w metoprolol tartrate DLP - c/w Ezetimibe and Simvastatin DM2 - c/w ISS Gout - Currently not on medications GERD / Rodriguez's esophagus with c/o dysphagia unable to take his pills - c/w Omeprazole no signs of aspiration on barium swallow DVT prophylaxis - On full anticoagulation with Eliquis disposition: awaiting outpt dialysis seat VS, I&O, 24H, [facility] Vital Signs/I&O Vital Signs Date Time Temp Pulse Resp B/P (MAP) Pulse Ox O2 Delivery O2 Flow Rate FiO2 04/28/18 06:23 62 135/67 04/28/18 06:00 97.0 20 94 I&O- Last 24 Hours up to 6 AM 04/28/18 06:00 Intake Total 1020 ml Output Total 0 ml Balance 1020 ml Laboratory Data 24H LABS Laboratory Tests 2 04/27/18 11:39: Bedside Glucose (Misc Panel) 169H 04/27/18 17:21: Bedside Glucose (Misc Panel) 136H 04/27/18 19:51: Bedside Glucose (Misc Panel) 183H 04/28/18 06:06: Immature Granulocyte % (Auto) , White Blood Count 16.5H, Red Blood Count 2.74L, Hemoglobin 8.7L, Hematocrit 27.5L, Mean Corpuscular Volume 100.4H, Mean Corpuscular Hemoglobin 31.8, Mean Corpuscular Hemoglobin Concent 31.6L, Red Cell Distribution Width 19.9H, Platelet Count 53L, Eosinophils (%) (Auto) , Nucleated Red Blood Cells % (auto) 0.1H, Neutrophils 76H, Band Neutrophils 3, Lymphocytes (Manual) 8L, Eosinophils (Manual) 9H, Metamyelocytes 2H, Myelocytes 2H, Platelet Estimate DECREASED, Immature Platelet Fraction 2.9, Polychromasia 1+, Poikilocytosis 1+, Anisocytosis 1+, Macrocytosis 1+, Ovalocytes 1+, Schistocytes 1+, Anion Gap 10, Glomerular Filtration Rate 15.0L, Blood Urea Nitrogen 42H, Creatinine 4.07H, Sodium Level 139, Potassium Level 4.1, Chloride Level 104, Carbon Dioxide Level 25, Calcium Level 7.9L CBC/BMP Laboratory Tests 04/28/18 06:06 Red Blood Count 2.74 L, Mean Corpuscular Volume 100.4 H, Mean Corpuscular He moglobin 31.8, Mean Corpuscular Hemoglobin Concent 31.6 L, Red Cell Distribution Width 19.9 H, Eosinophils (%) (Auto) , Calcium Level 7.9 L Microbiology Microbiology 04/25/18 Blood Culture - Preliminary, Resulted No Growth after 48 hours. All Specime... 04/25/18 Blood Culture - Preliminary, Resulted No Growth after 72 hours. All specime... 04/21/18 Blood Culture - Final, Complete NO GROWTH AFTER 5 DAYS 04/21/18 Blood Culture - Final, Complete NO GROWTH AFTER 5 DAYS 04/24/18 MRSA Screen - Final, Complete 04/23/18 Respiratory Virus Panel (PCR) (JENN) - Final, Complete 04/21/18 Gram Stain - Final, Complete 04/21/18 Sputum Culture - Final, Complete Yeast Like Organism 04/25/18 Urine Culture - Final, Complete Yeast Like Organism VINAY ELLIOTT MD Apr 28, 2018 07:53
[2018-04-28] MEDS: SIMVASTATIN 40 MG TAB PO SCH (21:52)
[2018-04-28 22:00] VITALS: BP 145/65
[2018-04-29 05:47] LABS: HEMATOCRIT 26.8 % (42.0-52.0); HEMOGLOBIN 8.6 g/dl (13.5-17.5); MEAN CORPUSCULAR HEMOGLOBIN 31.4 pg (27.0-33.0); MEAN CORPUSCULAR HGB CONC 32.1 g/dl (32.0-36.5); MEAN CORPUSCULAR VOLUME 97.8 fl (80.0-96.0); RED BLOOD COUNT 2.74 10^6/uL (4.30-6.10); WHITE BLOOD COUNT 13.4 10^3/uL (4.0-10.0)
[2018-04-29 05:50] LABS: PLATELET COUNT, AUTOMATED 46 10^3/uL (150-450)
[2018-04-29 06:00] VITALS: BP 149/79
[2018-04-29 06:06] LABS: CALCIUM LEVEL 8.1 MG/DL (8.8-10.2); CREATININE FOR GFR 3.1 MG/DL (0.70-1.30); GLOMERULAR FILTRATION RATE 20.5 (>35); POTASSIUM SERUM 4.3 MEQ/L (3.5-5.1)
[2018-04-29] MEDS: METOPROLOL TART 12.5 MG PER 1/2 TAB PO SCH ×5 (06:18→23:35)
[2018-04-29 06:47] LABS: ATYPICAL LYMPH 1 % (0-5); BASOPHILS 2 % (0-4); EOSINOPHILS 11 % (0-5); LYMPHOCYTES 17 % (16-52); METAMYELOCYTES 2 % (0-0); MONOCYTES 4 % (0-8); MYELOCYTES 5 % (0-0); NEUTROPHILS 57 % (35-75)
[2018-04-29 06:48] LABS: OVALOCYTES 1+; PLATELET ESTIMATE DECREASED (NORMAL); POIKILOCYTOSIS 1+; SCHISTOCYTES 1+
[2018-04-29 06:49] LABS: ANISOCYTOSIS 1+
--- NOTE | 2018-04-29 07:52 | IPNPDOC ---
Date Seen The patient was seen on 04/29/18. Progress Note Subjective: Frustrated that he can't be discharged. white count down to 13 off antibiotics. discharge postponed while awaiting dialysis seat as outpt. VANCO AND LEVAQUIN discontinued. wbc decreasing. rash is same. per pt, saw beef splitter in [place] 2 weeks ago and under treatment. dialysis seat still to be arranged in [place]. anxious to go home. no new c/o sob, cp, dizizness, lightheadedness, n/v/abd pain. Objective: Vitals (See below) General: Lying in bed, no acute distress, comfortable, AAOx3 HEENT: NC, AT CVS: RRR, +S1S2 Lungs: Fair air entry b/l, no evidence of wheezing / rales / rhonchi Abdomen: Soft, non-distended without tenderness Extremities: No evidence of edema, - Calf tenderness Assessment and plan:Patient is an 87-year-old male with a PMHx of A. fib (on Eliquis), CAD s/p CABG, HTN, DM2, Gout, GERD / Rodriguez's esophagus who presented to the ER with complaints of generalized weakness and decreased urine production. Patiently recently had an EGD and colonoscopy about 4 days ago and since that point has been experiencing symptoms. His history is also significant for a one-week requirement of dialysis after he had a hernia operation that caused him to develop ATN. Upon arrival to the emergency room, patient was found to have an elevated creatinine and was admitted to hospitalist service for further evaluation and treatment. Nephrology was called on consultation. Patient was seen and examined at the bedside. Patient still reports a cough. Den ies any chest pain or palpitations. Does not report any difficulty breathing. He does note diffuse itch throughout his body. Denies any nausea, vomiting, abdominal pain, constipation, or diarrhea. Patient does have a Carrion catheter in place. 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 - Lab work without any electrolyte abnormalities, acid-base abnormalities or uremia - s/p PermaCath placement; s/p HD - Nephrology is on consultation - Vascular surgery on consult;s/p AV fistula Leukocytosis of unknown etiology s/p aztreonam s/p vanco and levaquin CT thorax abd pelvis negative blood cx neg mrsa screen pending respiratory panel negative sputum cx yeast tmax 101 04/23/18 ID: checked procalcitonin to check for infectious etiology discontinued abx Macrocytic anemia - No evidence of bleeding - B12 and Folate levels noted - Will continue to follow Hg trend Thrombocytopenia - etiology unclear - No evidence of bleeding - Will continue to follow s/p Hyponatremia - possibly 2/2 hypotonic hypervolemic etiology A. fib - s/p Carvedilol; c/w metoprolol tartrate with holding parameters - Currently on full anticoagulation with Eliquis CAD s/p CABG - c/w ASA HTN - BP well controlled - s/p Carvedilol; c/w metoprolol tartrate DLP - c/w Ezetimibe and Simvastatin DM2 - c/w ISS Gout - Currently not on medications GERD / Rodriguez's esophagus with c/o dysphagia unable to take his pills - c/w Omeprazole no signs of aspiration on barium swallow DVT prophylaxis - On full anticoagulation with Eliquis disposition: awaiting outpt dialysis seat VS, I&O, 24H, [facility] Vital Signs/I&O Vital Signs Date Time Temp Pulse Resp B/P (MAP) Pulse Ox O2 Delivery O2 Flow Rate FiO2 04/29/18 06:18 67 147/57 04/29/18 06:00 97.3 20 94 I&O- Last 24 Hours up to 6 AM 04/29/18 06:00 Intake Total 1800 ml Output Total 2225 ml Balance -425 ml Laboratory Data 24H LABS Laboratory Tests 2 04/28/18 12:04: Bedside Glucose (Misc Panel) 136H 04/28/18 17:12: Bedside Glucose (Misc Panel) 109 04/28/18 20:46: Bedside Glucose (Misc Panel) 183H 04/29/18 05:20: Immature Granulocyte % (Auto) , White Blood Count 13.4H, Red Blood Count 2.74L, Hemoglobin 8.6L, Hematocrit 26.8L, Mean Corpuscular Volume 97.8H, Mean Corpuscular Hemoglobin 31.4, Mean Corpuscular Hemoglobin Concent 32.1, Red Cell Distribution Width 20.0H, Platelet Count 46L, Eosinophils (%) (Auto) , Nucleated Red Blood Cells % (auto) 0.0, Neutrophils 57, Band Neutrophils 1, Lymphocytes (Manual) 17, Monocytes (Manual) 4, Eosinophils (Manual) 11H, Basophils (Manual) 2, Metamyelocytes 2H, Myelocytes 5H, Atypical Lymphocytes 1, Platelet Estimate DECREASED, Poikilocytosis 1+, Anisocytosis 1+, Macrocytosis 1+, Ovalocytes 1+, Schistocytes 1+, Anion Gap 6L, Glomerular Filtration Rate 20.5L, Blood Urea Nitrogen 27H, Creatinine 3.10H, Sodium Level 139, Potassium Level 4.3, Chloride Level 105, Carbon Dioxide Level 28, Calcium Level 8.1L CBC/BMP Laboratory Tests 04/29/18 05:20 Red Blood Count 2.74 L, Mean Corpuscular Volume 97.8 H, Mean Corpuscular Hemogl obin 31.4, Mean Corpuscular Hemoglobin Concent 32.1, Red Cell Distribution Width 20.0 H, Eosinophils (%) (Auto) , Calcium Level 8.1 L Microbiology Microbiology 04/25/18 Blood Culture - Preliminary, Resulted No Growth after 72 hours. All specime... 04/25/18 Blood Culture - Preliminary, Resulted No Growth after 72 hours. All specime... 04/21/18 Blood Culture - Final, Complete NO GROWTH AFTER 5 DAYS 04/21/18 Blood Culture - Final, Complete NO GROWTH AFTER 5 DAYS 04/24/18 MRSA Screen - Final, Complete 04/23/18 Respiratory Virus Panel (PCR) (JENN) - Final, Complete 04/21/18 Gram Stain - Final, Complete 04/21/18 Sputum Culture - Final, Complete Yeast Like Organism 04/25/18 Urine Culture - Final, Complete Yeast Like Organism VINAY ELLIOTT MD Apr 29, 2018 07:51
[2018-04-29] MEDS: APIXABAN 2.5 MG TAB (ELIQUIS) PO SCH (09:05)
[2018-04-29] MEDS: HumaLOG INSULIN (NovoLOG) PER UNIT SC SCH ×4 (09:05→20:41)
[2018-04-29] MEDS: MULTIVITAMINS/MINERALS THERAP 1 TAB PO SCH (09:05)
[2018-04-29] MEDS: OMEPRAZOLE 20 MG CAP PO SCH (09:05)
[2018-04-29] MEDS: EZETIMIBE 10 MG TAB (ZETIA) PO SCH (09:05)
[2018-04-29] MEDS: ACETAMINOPHEN TAB 650MG DOSE (2X325MG) PO PRN (09:06)
[2018-04-29] MEDS ORDERED: PILL CRUSHER/CUTTER 1 EACH XX PRN (09:30)
[2018-04-29 11:26] LABS: PLATELET COUNT, AUTOMATED 53 10^3/uL (150-450)
[2018-04-29 11:42] LABS: INR 1.39; PROTHROMBIN TIME 17.3 SECONDS (12.1-14.4)
[2018-04-29 11:43] LABS: PARTIAL THROMBOPLASTIN TIME 44.7 SECONDS (25.4-37.6)
[2018-04-29 11:45] LABS: D-DIMER QUANT 1271.52 ng/ml (<500)
[2018-04-29 14:00] VITALS: BP 127/61
--- NOTE | 2018-04-29 14:39 | IPN ---
DATE: 04/28/2018 SUBJECTIVE: Patient was seen and examined at the bedside. He denies any fevers or chills. Patient was dialyzed 2 days ago, and today he is due for dialysis. OBJECTIVE: Vital signs: Temperature is 97.4 degrees Fahrenheit, blood pressure 133/59, pulse is 60, respiratory rate of 18, saturating 97% on room air. Intake and output: Urine output recorded is 225 mL. Weight in the bed scale is 78.8 kg. PHYSICAL EXAMINATION: GENERAL: Patient is awake, alert, oriented times three, sitting up in the bed. No apparent distress. HEAD AND NECK: Extraocular muscles intact. Pupils equally round and reactive to light. Mucous membranes are moist. Neck is supple. There is no jugular venous distention (JVD). Right internal jugular (IJ) tunneled hemodialysis catheter. CARDIOVASCULAR: S1, S2, regular rate. No edema of the bilateral lower extremities. RESPIRATORY: Chest is clear to auscultation bilaterally. Bilateral equal air entry. No rales or rhonchi. ABDOMEN: Soft. Positive bowel sounds. Nontender. No organomegaly. MUSCULOSKELETAL: No clubbing or cyanosis. Pulses are 2+. CENTRAL NERVOUS SYSTEM: No focal deficit. Power is 5/5 in all extremities. LABORATORY REVIEW: CBC showed a WBC of 16.5, hemoglobin 8.7, platelets are 53. BMP showed sodium 139, potassium 4.1, chloride 104, bicarbonate 25, BUN 42, creatinine is 4, calcium 7.9. Microbiology: Urine culture was just growing yeast-like organism. CURRENT INPATIENT MEDICATIONS: Patient's medications were all reviewed by me. There is no other change in the medications today as compared with yesterday. ASSESSMENT AND PLAN: 1. End-stage renal disease, on hemodialysis. Patient was dialyzed 2 days ago. He will be dialyzed today again. Ultrafiltration goal will be around 2 liters as tolerated by his blood pressure. Patient is awaiting placement at [facility] [place] at [place]. 2. Leukocytosis. Leukocytosis is getting better. Patient is currently not on any antibiotics at this point. 3. Thrombocytopenia. Patient has persistent thrombocytopenia; however, for the last 2 days he has not been dialyzed. If his platelet count drops further, then dialysis filter membrane will be changed. 4. Anemia, end-stage renal disease, and iron deficiency. Continue intravenous (IV) Venofer and Aranesp with dialysis. Hemoglobin is 8.7, which is stable at this point.
[2018-04-29] MEDS: **VANCO AFTER HD** MISC XX SCH (16:00)
[2018-04-29] MEDS: SIMVASTATIN 40 MG TAB PO SCH (20:41)
[2018-04-29 22:00] VITALS: BP 132/74
[2018-04-30] MEDS: METOPROLOL TART 12.5 MG PER 1/2 TAB PO SCH ×4 (05:37→23:42)
[2018-04-30 06:00] VITALS: BP 134/61
[2018-04-30 06:25] LABS: CALCIUM LEVEL 7.7 MG/DL (8.8-10.2); CREATININE FOR GFR 3.5 MG/DL (0.70-1.30); GLOMERULAR FILTRATION RATE 17.8 (>35); POTASSIUM SERUM 4.6 MEQ/L (3.5-5.1)
--- NOTE | 2018-04-30 06:49 | IPN ---
DATE OF VISIT: 04/29/2018 SUBJECTIVE: The patient is seen and examined this morning, sitting out of bed to the chair, stands to greet me as I enter. Awake, alert and oriented, no distress. He denies an complaints. He was dialyzed yesterday with 2 liters of fluid removed. I discussed his thrombocytopenia with him. VITAL SIGNS: Temperature 97.9, pulse 56, respiratory rate 18, blood pressure 127/61, saturating 97% on room air. Intake yesterday was 1800, urine out yesterday 225, dialysis yesterday removed 2 liters, net negative 425. Weight in the bed scale today is 78.1 kg. GENERAL: The patient is seen sitting out of bed to the chair and standing, awake, alert and oriented times three. No distress, elderly male who is comfortable. HEENT: Extraocular movement intact, anicteric sclerae. Moist mucous membranes. NECK: Supple. There is a tunneled right internal jugular (IJ) hemodialysis catheter. There is no jugular venous distention (JVD). CARDIAC: S1, S2, mild bradycardia, regular rate. No edema in the lower extremities. RESPIRATORY: Clear to auscultation bilaterally. Equal air entry, no rales or rhonchi. ABDOMEN: Soft, nontender. CENTRAL NERVOUS SYSTEMS (PATIENT PARTNER): No focal deficits. 5/5 power in all extremities. MUSCULOSKELETAL: No clubbing or cyanosis. The right brachiocephalic fistula has a proximal thrill and appears puffy. LABORATORY DATA: White count 13.4, hemoglobin 8.6, platelets 46. Sodium 139, potassium 4.3, glucose 150. INPATIENT MEDICATIONS: Reviewed by myself. Noted the patient's Eliquis was held. His remainder of medications are unchanged from prior. PROBLEMS: 1. End-stage renal disease on hemodialysis. His next treatments will either be on Monday or Monday. He is pending outpatient hemodialysis set up. He is presently dialyzing by [facility] and he has a newly placed right brachiocephalic fistula. His electrolytes and volume status are acceptable. 2. Thrombocytopenia persistent. Platelet count is now less than 50. Primary team has sent workup and Eliquis is presently held. I note he has some puffiness at the site of his recent fistula creation and I have asked vascular surgery to take a look although the fistula does not look thrombosed and there is a proximal thrill. 3. Anemia related to end-stage renal disease and iron deficiency. The patient continues wit Venofer and Aranesp. Hemoglobin is suboptimal but stable in the 8s. MTDD
--- NOTE | 2018-04-30 07:37 | IPNPDOC ---
Date Seen The patient was seen on 04/30/18. Progress Note Subjective: No complaints of bleeding despite thrombocytopenia. awaiting HIT panel, DIC panel, Peripheral smear. Frustrated that he can't be discharged. white count down to 13 off antibiotics. discharge postponed while awaiting dialysis seat as outpt. VANCO AND LEVAQUIN discontinued. wbc decreasing. rash is same. per pt, saw pompom maker in [place] 2 weeks ago and under treatment. dialysis seat still to be arranged in [place]. anxious to go home. no new c/o sob, cp, dizizness, lightheadedness, n/v/abd pain. Objective: Vitals (See below) General: Lying in bed, no acute distress, comfortable, AAOx3 HEENT: NC, AT CVS: RRR, +S1S2 Lungs: Fair air entry b/l, no evidence of wheezing / rales / rhonchi Abdomen: Soft, non-distended without tenderness Extremities: No evidence of edema, - Calf tenderness Assessment and plan:Patient is an 87-year-old male with a PMHx of A. fib (on Eliquis), CAD s/p CABG, HTN, DM2, Gout, GERD / Rodriguez's esophagus who presented to the ER with complaints of generalized weakness and decreased urine production. Patiently recently had an EGD and colonoscopy about 4 days ago and since that point has been experiencing symptoms. His history is also significant for a one-week requirement of dialysis after he had a hernia operation that caused him to develop ATN. Upon arrival to the emergency room, patient was found to have an elevated creatinine and was admitted to hospitalist service for further evaluation and treatment. Nephrology was called on consultation. Patient was seen and examined at the bedside. Patient still reports a cough. Denies any chest pain or palpitations. Does not report any difficulty breathing. He does note diffuse itch throughout his body. Denies any nausea, vomiting, abdominal pain, constipation, or diarrhea. Patient does have a Carrion catheter in place. 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 - Lab work without any electrolyte abnormalities, acid-base abnormalities or uremia - s/p PermaCath placement; s/p HD - Nephrology is on consultation - Vascular surgery on consult;s/p AV fistula Leukocytosis of unknown etiology s/p aztreonam s/p vanco and levaquin CT thorax abd pelvis negative blood cx neg mrsa screen pending respiratory panel negative sputum cx yeast tmax 101 04/23/18 ID: checked procalcitonin to check for infectious etiology discontinued abx Macrocytic anemia - No evidence of bleeding - B12 and Folate levels noted - Will continue to follow Hg trend Thrombocytopenia - etiology unclear - No evidence of bleeding workup pending. may have been due to antibiotics, but no recovery seen after abx discontinued. -eliquis discontinued and heparin avoided. s/p Hyponatremia - possibly 2/2 hypotonic hypervolemic etiology A. fib - s/p Carvedilol; c/w metoprolol tartrate with holding parameters - Currently on full anticoagulation with Eliquis CAD s/p CABG - c/w ASA HTN - BP well controlled - s/p Carvedilol; c/w metoprolol tartrate DLP - c/w Ezetimibe and Simvastatin DM2 - c/w ISS Gout - Currently not on medications GERD / Rodriguez's esophagus with c/o dysphagia unable to take his pills - c/w Omeprazole no signs of aspiration on barium swallow DVT prophylaxis held eliquis due to severe thrombocytopenia disposition: awaiting outpt dialysis seat VS, I&O, 24H, [facility] Vital Signs/I&O Vital Signs Date Time Temp Pulse Resp B/P (MAP) Pulse Ox O2 Delivery O2 Flow Rate FiO2 04/30/18 06:00 97.7 57 18 134/61 (85) 95 I&O- Last 24 Hours up to 6 AM 04/30/18 06:00 Intake Total 2060 ml Output Total 250 ml Balance 1810 ml Laboratory Data 24H LABS Laboratory Tests 2 04/29/18 11:16: Differential Slide Review Report, Immature Platelet Fraction 2.6, Peripheral Blood Smear Path Consult PERIPHERAL SMEAR, Prothrombin Time 17.3H, Prothromb Time International Ratio 1.39, Activated Partial Thromboplast Time 44.7H, Fibrinogen 347, D-Dimer, Quantitative 1271.52H 04/29/18 11:23: Bedside Glucose (Misc Panel) 191H 04/29/18 17:00: Bedside Glucose (Misc Panel) 123H 04/29/18 20:25: Bedside Glucose (Misc Panel) 257H 04/30/18 05:46: Anion Gap 6L, Glomerular Filtration Rate 17.8L, Blood Urea Nitrogen 37H, Creatinine 3.50H, Sodium Level 140, Potassium Level 4.6, Chloride Level 106, Carbon Dioxide Level 28, Calcium Level 7.7L CBC/BMP Laboratory Tests 04/29/18 11:16 04/30/18 05:46 Calcium Level 7.7 L Microbiology Microbiology 04/25/18 Blood Culture - Preliminary, Resulted No Growth after 72 hours. All specime... 04/25/18 Blood Culture - Final, Complete NO GROWTH AFTER 5 DAYS 04/21/18 Blood Culture - Final, Complete NO GROWTH AFTER 5 DAYS 04/21/18 Blood Culture - Final, Complete NO GROWTH AFTER 5 DAYS 04/24/18 MRSA Screen - Final, Complete 04/23/18 Respiratory Virus Panel (PCR) (JENN) - Final, Complete 04/21/18 Gram Stain - Final, Complete 04/21/18 Sputum Culture - Final, Complete Yeast Like Organism 04/25/18 Urine Culture - Final, Complete Yeast Like Organism VINAY ELLIOTT MD Apr 30, 2018 07:35
[2018-04-30] MEDS: CALCITRIOL 0.25 MCG CAP (S0169) PO SCH (08:02)
[2018-04-30] MEDS: EZETIMIBE 10 MG TAB (ZETIA) PO SCH (08:03)
[2018-04-30] MEDS: OMEPRAZOLE 20 MG CAP PO SCH (08:03)
[2018-04-30] MEDS: MULTIVITAMINS/MINERALS THERAP 1 TAB PO SCH (08:03)
[2018-04-30] MEDS: HumaLOG INSULIN (NovoLOG) PER UNIT SC SCH ×4 (08:05→21:00)
[2018-04-30 09:33] LABS: HEMATOCRIT 28.2 % (42.0-52.0); HEMOGLOBIN 8.9 g/dl (13.5-17.5); MEAN CORPUSCULAR HEMOGLOBIN 31.8 pg (27.0-33.0); MEAN CORPUSCULAR HGB CONC 31.6 g/dl (32.0-36.5); MEAN CORPUSCULAR VOLUME 100.7 fl (80.0-96.0); PLATELET COUNT, AUTOMATED 54 10^3/uL (150-450); WHITE BLOOD COUNT 11.8 10^3/uL (4.0-10.0)
[2018-04-30] MEDS: ACETAMINOPHEN TAB 650MG DOSE (2X325MG) PO PRN (13:35)
[2018-04-30] MEDS: **VANCO AFTER HD** MISC XX SCH (13:36)
[2018-04-30 14:00] VITALS: BP 144/65
[2018-04-30 14:57] LABS: FOLATE 18.6 NG/ML (>5.4)
[2018-04-30] MEDS: SIMVASTATIN 40 MG TAB PO SCH (20:24)
[2018-04-30 22:00] VITALS: BP 155/67
--- NOTE | 2018-05-01 00:18 | IPN ---
DATE OF SERVICE: 04/30/2018 SUBJECTIVE: The patient is seen and examined this morning at the bedside. Denies any acute overnight events or issues. Thrombocytopenia persistent but no worse over the past couple of days. He denies any shortness of breath or dyspnea on exertion. Still having a cough. VITAL SIGNS: Temperature 97.5, pulse 60, respiratory rate 18, blood pressure 144/65, saturating 98% on room air. Intake yesterday was 2 liters. Urine output yesterday 250, net positive 1.8 liters. Weight on the bed scale today is 78.9 kg. GENERAL: The patient is seen sitting upright in bed and walking around the room. Elderly male. Comfortable in no acute distress. Extraocular muscles intact and icteric sclera. Moist mucous membranes. Neck is supple. Tunneled right internal jugular (IJ) hemodialysis catheter with dressing. No jugular venous distention (JVD). CARDIAC: S1, S2. Regular rate. No edema in the peripheries. Mild bradycardia. LUNGS: Lungs are clear to auscultation. No rhonchi or crackles. ABDOMEN: Abdomen is soft and nontender. NEUROLOGICAL: No focal deficit, 5/5 power in all extremities. MUSCULOSKELETAL: Shows no clubbing or cyanosis. The right brachiocephalic fistula has proximal thrill and appears puffy. LABORATORIES: Sodium 140, potassium 4.6, bicarbonate 28, hemoglobin 8.9, platelets 54. INPATIENT MEDICATIONS: Reviewed by myself and no medication changes from prior. PROBLEMS: 1. End-stage renal disease on hemodialysis. His next treatment will be [facility]. He is pending outpatient hemodialysis arrangement. He has a newly placed right brachiocephalic fistula. He will need to follow up with vascular surgery. His electrolytes and volume status are acceptable. He is tolerating his treatments well. We will continue with heparin-free dialysis in view of thrombocytopenia. 2. Anemia related to end-stage renal disease and iron deficiency. The patient continues with Venofer and Aranesp. Hemoglobin is slowly improving but still suboptimal. 3. Persistent thrombocytopenia. Platelet count of around 50 for the past few days. The primary team has sent the workup and Eliquis is presently held. I have asked vascular surgery to take a look at his fistula as it is a little puffy though I do not feel that there is thrombosis given that there is a thrill. He will continue with the heparin-free dialysis. 4. Hypertension. Blood pressures are acceptable and he continues on metoprolol.
[2018-05-01 06:00] VITALS: BP 161/70
[2018-05-01] MEDS: METOPROLOL TART 12.5 MG PER 1/2 TAB PO SCH (06:00)
[2018-05-01] MEDS: MULTIVITAMINS/MINERALS THERAP 1 TAB PO SCH (06:15)
[2018-05-01] MEDS: EZETIMIBE 10 MG TAB (ZETIA) PO SCH (06:15)
[2018-05-01] MEDS: OMEPRAZOLE 20 MG CAP PO SCH (06:15)
[2018-05-01 06:58] LABS: BASO # 0.1 10^3/uL (0.0-0.2); BASO % 0.5 % (0.0-1.0); EOS # 3.1 10^3/uL (0.0-0.50); HEMATOCRIT 28.2 % (42.0-52.0); HEMOGLOBIN 8.9 g/dl (13.5-17.5); LYMPH # 1.6 10^3/uL (1.5-4.5); LYMPH % 14.7 % (24.0-44.0); MEAN CORPUSCULAR HEMOGLOBIN 31.1 pg (27.0-33.0); MEAN CORPUSCULAR HGB CONC 31.6 g/dl (32.0-36.5); MEAN CORPUSCULAR VOLUME 98.6 fl (80.0-96.0); MONO # 0.9 10^3/uL (0.0-0.8); MONO % 7.9 % (0.0-5.0); NEUTROPHILS # 5.1 10^3/uL (1.8-7.7); NEUTROPHILS % 46.6 % (36.0-66.0); RED BLOOD COUNT 2.86 10^6/uL (4.30-6.10)
[2018-05-01 06:59] LABS: EOS % 27.9 % (0.0-3.0); PLATELET COUNT, AUTOMATED 69 10^3/uL (150-450)
[2018-05-01 07:20] LABS: CALCIUM LEVEL 7.9 MG/DL (8.8-10.2); CREATININE FOR GFR 3.44 MG/DL (0.70-1.30); GLOMERULAR FILTRATION RATE 18.2 (>35); POTASSIUM SERUM 4.7 MEQ/L (3.5-5.1)
[2018-05-01] MEDS ORDERED: CARV6.25 PO (08:35)
[2018-05-01] MEDS: ACETAMINOPHEN TAB 650MG DOSE (2X325MG) PO PRN (08:36)
[2018-05-01] MEDS: HumaLOG INSULIN (NovoLOG) PER UNIT SC SCH (08:36)
--- NOTE | 2018-05-01 21:27 | DSES ---
DATE OF ADMISSION: 04/19/2018 DATE OF DISCHARGE: 05/01/2018 PRIMARY CARE PROVIDER: Evert Moncada MD CONSULTANTS: Nephrology, infectious disease. DISCHARGE DIAGNOSES: 1. Acute renal failure on chronic kidney disease. 2. Acute tubular necrosis. 3. Leukocytosis. 4. Microcytic anemia. 5. Thrombocytopenia. 6. Hyponatremia. 7. Atrial fibrillation. 8. Coronary artery disease, status post coronary artery bypass graft (CABG). 9. Hypertension. 10. Dyslipidemia. 11. Diabetes. 12. Gout. 13. Gastroesophageal reflux disease (GERD). HOSPITALIZATION COURSE: The patient is an 87-year-old male who presented to [facility] on 04/19/2018 with a complaint of generalized weakness, oliguria for 1 to 2 days prior to the admission. The patient was admitted under the hospitalist service for renal failure. Nephrology was consulted. Diagnostic workup was ordered. The patient had a PermaCath placement by vascular surgery. The patient had hemodialysis. The patient was found to have leukocytosis. Further diagnostic workup obtained and the patient was started on empiric antibiotics. Later, the patient had AV fistula placement. The patient continued to have persistent leukocytosis with fever. Infectious disease was consulted. There was no clear source of infection identified. Antibiotic deescalated. Social service assisting with arranging outpatient dialysis. The patient was also found to have significant thrombocytopenia and workup was initiated. The patient had a secure outpatient dialysis appointment and the patient also passed physical therapy (PT). The patient was determined stable for discharge with recommendation to followup with the primary care provider in 1 week, followup with nephrology in 1 week. The patient was also to continue to follow with [facility] for rash treatment. VITAL SIGNS: On the day of discharge: Temperature 98.8, pulse 54, respirations 18, blood pressure 161/70, pulse oximetry 92% on room air. LABORATORY DATA: On the day of discharge: WBC 11, hemoglobin 8.9, hematocrit 28.2, platelet count 69. Sodium is 138, potassium 4.7, chloride 104, carbon dioxide 26, BUN 42, creatinine 3.4, GFR is 18.2, fasting glucose 158, calcium 7.9. Hepatitis panel was negative. Microbiology: Blood cultures from 04/21/2018 showed no growth after 5 days times two sets. Sputum culture from 04/21/2018 showed yeast-like organisms. Respiratory panel from 04/23/2018 is negative. Methicillin resistant Staphylococcus aureus (MRSA) screen on 04/24/2018 negative. Blood cultures from 04/25/2018 showed no growth after five days times two sets. Urine culture from 04/25/2018 showed yeast-like organism. Peripheral smear on 04/26/2018 showed reactive leukocytosis with left shift, no blasts seen. Anemia and thrombocytopenia also present with no significant morphological abnormalities. Peripheral smear on 04/30/2018 showed acute onset anemia and thrombocytopenia with reactive leukocytosis and eosinophilia. No blasts seen. IMAGING STUDIES: Chest x-ray on 04/19/2018 showed chronic findings. 8 mm left upper lobe lung nodule. Renal ultrasound from 04/19/2018 showed no acute pathology. No hydronephrosis. CT of the chest without contrast on 04/19/2018 showed no acute findings. No significant pulmonary nodule or mass. Cardiomegaly. Proximal aortic stent graft. Cardiac electrodes in place. CT of the chest without contrast done on 04/25/2018 showed increased bilateral small pleural effusions. No new infiltrates. CT of the abdomen and pelvis without contrast on 04/25/2018 showed no intraabdominal abscess. Cholelithiasis is seen. Small bilateral pleural effusions noted. Cookie swallow study on 04/25/2018 showed no evidence of penetration of aspiration. DISCHARGE MEDICATIONS: - carvedilol 6.25 mg by mouth twice a day - allopurinol 100 mg by mouth twice a day - Eliquis 2.5 mg by mouth twice a day - aspirin 81 mg by mouth at night - vitamin B complex one tablet by mouth daily - calcitriol 0.25 mcg by mouth twice a week - calcium carbonate 1500 mg by mouth daily - ezetimibe 10 mg by mouth daily - glipizide 2.5 mg by mouth daily - iron 45 mg by mouth daily - levocetirizine 5 mg by mouth at night - multivitamin one tablet by mouth daily - omeprazole 20 mg by mouth twice a day - simvastatin 40 mg by mouth at night DISCHARGE INSTRUCTIONS: Discontinue line. Discharge home. Activity as tolerated. Renal diet and consistent carbohydrate diet as tolerated. The patient should followup with the primary care provider in 1 week. Followup with nephrology in 1 week. Followup with dermatology in 1 week. After discharge, the patient should go to outpatient hemodialysis on 05/01/2018 to start his outpatient hemodialysis. Discharge time was greater than 30 minutes. Discharge condition is fair.
[2018-05-02 00:08] LABS: CYTOMEGALOVIRUS IgM ANTIBODY <30.0 AU/mL (0.0-29.9); HOMOCYST(E)INE SERUM 17.5 umol/L (0.0-15.0)
[2018-05-03 10:16] LABS: EBV VIRAL CAPSID AG IgM <36.0 U/mL (0.0-35.9); Methylmalonic Acid 874 nmol/L (0-378)
[2018-05-05 00:08] LABS: HEPARIN INDUCED PLATELET ABY 0.157 OD (0.000-0.400); PARVOVIRUS B19 QUANT PCR Negative copies/mL (Negative)
--- NOTE | 2018-05-09 09:21 | REPIR ---
DATE OF PROCEDURE: 04/20/2018 ATTENDING SURGEON: Dr. Fernanda Danielson STEEL HANGER: PREOPERATIVE DIAGNOSIS: Chronic renal insufficiency now with end-stage renal disease requiring renal replacement therapy. POSTOPERATIVE DIAGNOSIS: Chronic renal insufficiency now with end-stage renal disease requiring renal replacement therapy. PROCEDURE: Ultrasound-guided right internal jugular vein cannulation. Fluoroscopic guided right internal jugular vein 19 cm tip to cuff tunneled central venous catheter placement. Right internal jugular vein venogram. PROCEDURE: The patient was taken to the angiography suite placed supine on the angiography room table and then prepped and draped in a standard surgical fashion. The right internal jugular vein was evaluated with ultrasound. It was an easily compressible, widely patent, free of thrombus. Ultrasound was used guide cannulation of the right internal jugular vein with real-time concurrent visualization of the entry of the needle into the right internal jugular vein with a hard copy image preserved. The right internal jugular vein was then sequentially dilated under fluoroscopic guidance. A 19 cm tip to cuff catheter placed into the internal jugular vein through the introducer sheath and positioned with the tip in the superior vena cava/right atrial junction. Both ports were aspirated and noted to aspirate easily and flushed with heparinized saline. The catheter was then secured to the anterior chest wall using #2-0 Prolene suture. Dressings were applied. The patient tolerated procedure well. All instrument, sponge, and needle counts were correct at the end the case. There were no complications. Dr. Danielson was present for and directed the entire case. Catheter is stable for use for hemodialysis access. RADIOLOGY SUPERVISION INTERPRETATION: The final fluoroscopic image showed the catheter to be in good position and good alignment with no pneumothorax or hemothorax noted. Catheter is stable for use for hemodialysis access.
--- NOTE | 2018-05-09 10:55 | RO ---
DATE OF PROCEDURE: 04/23/2018 ATTENDING SURGEON: Dr. Fernanda Danielson SHOE SINGER: None. PREOPERATIVE DIAGNOSES: End-stage renal disease, coronary artery disease status post coronary artery bypass grafting, aortic stenosis status post transcatheter aortic valve replacement (TAVR), hypertension, diabetes mellitus, and pacer placement. POSTOPERATIVE DIAGNOSES: End-stage renal disease, coronary artery disease status post coronary artery bypass grafting, aortic stenosis status post transcatheter aortic valve replacement (TAVR), hypertension, diabetes mellitus, and pacer placement. PROCEDURE: Right brachiocephalic arteriovenous fistula creation. INDICATION: The patient is an 87-year-old male with end-stage renal disease who underwent placement of a right internal jugular vein tunneled central venous catheter for hemodialysis access and now requires long-term access. The patient will undergo a right brachiocephalic arteriovenous fistula creation. Risks, benefits and alternative treatment options were discussed with the patient. ANESTHESIA: Local monitored anesthesia care (MAC). INTRAVENOUS (IV) FLUIDS: 250 mL. ESTIMATED BLOOD LOSS: 50. SPECIMENS: None. COMPLICATIONS: None. DRAINS: None. HEPARIN: None. IMPLANTS: None. DESCRIPTION OF PROCEDURE: The patient was taken to the operating room, placed supine on the operating room table and then prepped and draped in a standard surgical fashion. An incision was made at the antecubital fossa after anesthetizing the overlying skin with 1% lidocaine mixed with 0.5% Marcaine. The cephalic vein and brachial artery were sharply dissected free. The cephalic vein was transected as far distal as possible, the remnant ligated with #2-0 silk suture ligature. The cephalic vein was dilated using heparinized saline. An arteriotomy was made in the brachial artery after clamping proximally and distally. The cephalic vein was anastomosed to the brachial artery in an end-to-side fashion using #6-0 Prolene suture in running continuous fashion. There was good flow in the cephalic vein at the completion of the anastomosis as well as in the brachial artery proximal distal to the arteriovenous anastomosis. Hemostasis was obtained, after which, the incision was closed using #3-0 Monocryl to approximate the skin in a running subcuticular fashion. Steri-Strips and dressings were applied. The patient tolerated the procedure well. All instrument, sponge and needle counts were correct at the end of the case. There were no complications. Dr. Danielson was pleasant present for and directed the entire case. The patient was transferred to the recovery room awake, alert, extubated and in stable condition.
== END 2018-05-01 10:00 | disposition home or self-care (01) | DRG 674 ==
LOC: M ED 15:40 → M ED INP 22:17 → M MS5PR 04-20
PROVIDERS: ADMIT Internal Medicine; ATTEND Internal Medicine
PROC: 0JH63XZ Insertion of Tunneled Vascular Access Device into Chest Subcutaneous Tissue and Fascia, Percutaneous Approach (ICD-10-PCS; 2018-04-20)
PROC: 02H633Z Insertion of Infusion Device into Right Atrium, Percutaneous Approach (ICD-10-PCS; 2018-04-20)
PROC: B2141ZZ Fluoroscopy of Right Heart using Low Osmolar Contrast (ICD-10-PCS; 2018-04-20)
PROC: B543ZZA Ultrasonography of Right Jugular Veins, Guidance (ICD-10-PCS; 2018-04-20)
PROC: 051 Upper Veins, Bypass (ICD-10-PCS; 2018-04-23)
PROC: 031 Upper Arteries, Bypass (ICD-10-PCS; principal; 2018-04-23 17:00)
DX: N17.0 Acute kidney failure with tubular necrosis (principal); E87.1 Hypo-osmolality and hyponatremia; N18.6 End stage renal disease; D72.829 Elevated white blood cell count, unspecified; K21.9 Gastro-esophageal reflux disease without esophagitis; M10.9 Gout, unspecified; E11.9 Type 2 diabetes mellitus without complications; E78.5 Hyperlipidemia, unspecified; I25.10 Atherosclerotic heart disease of native coronary artery without angina pectoris; Z95.1 Presence of aortocoronary bypass graft; I48.2 Chronic atrial fibrillation; D69.6 Thrombocytopenia, unspecified; D50.9 Iron deficiency anemia, unspecified; R21 Rash and other nonspecific skin eruption; Z79.899 Other long term (current) drug therapy; Z79.82 Long term (current) use of aspirin; Z88.0 Allergy status to penicillin; Z88.8 Allergy status to other drugs, medicaments and biological substances; Z87.891 Personal history of nicotine dependence; Z79.01 Long term (current) use of anticoagulants; D63.1 Anemia in chronic kidney disease; N25.81 Secondary hyperparathyroidism of renal origin; Z95.0 Presence of cardiac pacemaker; Z99.2 Dependence on renal dialysis

== ENCOUNTER → 2018-05-08 | Outpatient (REF) | payer MEDICARE, OTHER ==
[~2018-05-08] MED LIST changes: +CALTTAB5 PO; +CARV6.25 PO; +LEVOTAB10 PO; +OMEP-218 PO; +VITMTA PO
[2018-05-08 15:57] LABS: ALBUMIN 2.9 GM/DL (3.2-5.2); CALCIUM LEVEL 8.4 MG/DL (8.8-10.2); CREATININE FOR GFR 2.96 MG/DL (0.70-1.30); GLOMERULAR FILTRATION RATE 21.6 (>35); PHOSPHORUS LEVEL 3.7 MG/DL (2.5-4.9); POTASSIUM SERUM 4.5 MEQ/L (3.5-5.1)
[2018-05-08 16:17] LABS: CREATININE CLEARANCE, URINE 16.6 ML/MIN (85-125); CREATININE, URINE 65.2 MG/DL
== END ==
LOC: M LAB REF 15:31
PROVIDERS: ATTEND Internal Medicine Nephrology
DX: N17.9 Acute kidney failure, unspecified (principal)

== ENCOUNTER → 2018-05-21 | Outpatient (CLI) | payer MEDICARE, OTHER ==
[~2018-05-21] MED LIST changes: +BUPIVACAINE HCL 0.5% 10 ML VIAL As Ordered ONE; +ISOVUE-300 61% 100ML VIAL (Q9967) As Ordered ONE; +ISOVUE-370 76% 100ML VIAL (Q9967) As Ordered ONE; +LIDOCAINE 2% MDV 20 ML VIAL As Ordered ONE; +MIDAZOLAM INJ 2 MG/2 ML VIAL (J2250) As Ordered ONE; +fentaNYL 100 MCG/2 ML INJECTION (J3010) As Ordered ONE
--- NOTE | 2018-06-13 08:18 | REPIR ---
DATE OF PROCEDURE: 05/21/2018 PREOPERATIVE DIAGNOSES: End-stage renal disease, dysfunctional right brachiocephalic arteriovenous fistula. POSTOPERATIVE DIAGNOSES: End-stage renal disease, dysfunctional right brachiocephalic arteriovenous fistula. PROCEDURE: Right brachiocephalic arteriovenous fistulogram, retrograde right brachial artery angiogram, right cephalic vein angioplasty with 6 x 200 balloon. SURGEON: Dr. Fernanda Danielson. LICENSED PROSTHETIST/ORTHOTIST: Halima Jaime ANESTHESIA: Local with sedation with 1 mg Versed, 50 mcg of fentanyl, 2 mL of 2% lidocaine mixed with 0.5% Marcaine. FLUORO TIME: 3.1 minutes. CONTRAST: 5 mL of Isovue 300. SEDATION TIME: From 09:33 a.m. to 09:47 a.m. for a total of 14 minutes. COMPLICATIONS: None DRAINS: None. SPECIMENS: None. IMPLANTS: None. INDICATION: The patient is a 87-year-old male with renal failure and congestive heart failure (CHF) who required placement of a PermCath for hemodialysis access and then underwent creation of a right brachiocephalic arteriovenous fistula to the non-maturing. Patient will undergo a fistula with possible angioplasty stent and/or atherectomy. Risks, benefits and alternative options were discussed with the patient. DESCRIPTION OF PROCEDURE: The patient was taken to the angiography suite, placed supine on the angiography room table and the right upper extremity was prepped and draped in a standard surgical fashion. The fistula was cannulated. A fistulogram was performed showing stenosis in the cephalic vein in the mid upper arm. The cephalic vein was then angioplasty with a 6 x 200 balloon. A completion fistulogram showed resolution of the stenosis with improved flow through the fistula. A retrograde brachial artery angiogram was performed showing no stenosis at the arteriovenous anastomosis. Catheters and wires were removed and a #2-0 Prolene suture placed at the puncture site for hemostasis. Dressings were then applied. The patient tolerated the procedure well. All instrument, sponge, and needle counts were correct at the end the case. There were no complications. Dr. Danielson was present for and directed the entire case. The patient was transferred to the holding area and subsequent discharged in stable condition.
== END | disposition home or self-care (01) ==
LOC: M IRPRO 08:03
PROVIDERS: ATTEND Surgery Vascular Surgery
DX: T82.858A Stenosis of other vascular prosthetic devices, implants and grafts, initial encounter (principal); N18.6 End stage renal disease; I50.9 Heart failure, unspecified; Z99.2 Dependence on renal dialysis
CPT/HCPCS: 36215; 36902; 75710; C1725; C1769; C1887; C1894; J2250; J3010; Q9967

== ENCOUNTER → 2018-08-17 | Outpatient (CLI) | payer MEDICARE, OTHER ==
[~2018-08-17] MED LIST changes: -BUPIVACAINE HCL 0.5% 10 ML VIAL As Ordered ONE; -EZET10TA PO; +EZET10TA21 PO; -ISOVUE-300 61% 100ML VIAL (Q9967) As Ordered ONE; -ISOVUE-370 76% 100ML VIAL (Q9967) As Ordered ONE; +LIDOCAINE 1% MDV 20ML VIAL As Ordered ONE; -MIDAZOLAM INJ 2 MG/2 ML VIAL (J2250) As Ordered ONE; +PRED10TA2 PO; +VANC1INJ38 IV; +VITATAB73 PO; -fentaNYL 100 MCG/2 ML INJECTION (J3010) As Ordered ONE
[2018-08-17 13:12] VITALS: BP 121/57
--- NOTE | 2018-09-18 09:02 | ROOPDOC ---
[facility] Report Of Operation Report of Operation DATE OF PROCEDURE: 08/17/2018 PREPROCEDURE DIAGNOSES: End-stage renal disease, functioning right brachiocephalic arteriovenous fistula. POSTPROCEDURE DIAGNOSES: End-stage renal disease, functioning right brachiocephalic arteriovenous fistula. PROCEDURE: Right internal jugular vein tunneled central venous catheter removal. SURGEON: Dr. Fernanda Danielson M.D. REPRODUCTION TECHNICIAN: None INDICATION: Patient is a 87-year-old male with end-stage renal disease who underwent creation of a right brachiocephalic arterial venous fistula which is now functioning. Patient will undergo removal of the right internal jugular vein tunneled central venous catheter. The procedure was explained and described to the patient in detail including drawing of pictures describing the procedure and pertinent anatomy associated with the procedure. Risks, benefits and alternative treatment options were discussed with the patient. Benefits included but were not limited to removal of the catheter with reduction in complications from central venous catheters. Alternative treatment options included but were not limited to no intervention. Risks included but were not limited to infection, bleeding, pneumothorax, hemothorax, possible need for open surgical intervention, adverse or allergic reaction to the local anesthetic, adverse or allergic reaction to the material used for surgical prepping and draping, nerve injury, cerebrovascular accident, myocardial infarction, pulm onary embolus, deep venous thrombosis, poor satisfaction, poor outcome, poor results, loss of limb and loss of life. Risks of not performing the procedure included but were not limited to infection, bleeding, central venous stenosis and/or thrombosis, loss of life and poor outcome. Patient's questions were answered. Patient voices understanding of these risks, benefits and alternative treatment options. Patient voices acceptance of these risks, benefits and alternative treatment options and consents to proceed with right internal jugular vein tunneled central venous catheter removal. There were no promises or guarantees made to the patient regarding the procedure or outcome. ANESTHESIA: Local with 20 mL of 1% lidocaine ESTIMATED BLOOD LOSS: 5 mL IV FLUIDS: None DRAINS: None CONTRAST: None COMPLICATIONS: None IMPLANTS: None SPECIMENS: None PROCEDURE: Patient was prepped and draped in a standard surgical fashion. A time out was completed by myself and all the team members in the room involved at the initiation of the procedure, confirming the correct patient , procedure and laterality. Manual traction was applied to the catheter which did not release the subcutaneous cuff spontaneously. The skin and subcutaneous tissue overlying the catheter and tunnelled subcutaneous cuff were then anesthetized with 2% lidocaine. The cuff was then sharply dissected free via the entry site in the right chest. The catheter was then removed and manual compression applied at the exit site in the right chest and at the right internal jugular vein entry site for hemostasis. Once hemostasis was achieved, dressings were then applied. Patient tolerated the procedure well and was in stable condition at the end of the removal of the tunneled central venous catheter. All instrument, sponge and needle counts were correct at the end of the case. There were no complications. Dr. Danielson was present for and directed the entire case. Patient was discharged in stable condition. The procedure and results were discussed with the patient at the end of the case with all of their questions being answered. The procedure and the results were discussed with the patient's and his family at the end of the case with all of their questions being answered. Pablo Danielson MD Sep 18, 2018 09:02
== END ==
LOC: M IRPRO 12:20
PROVIDERS: ATTEND Surgery Vascular Surgery
DX: N18.6 End stage renal disease (principal); E11.22 Type 2 diabetes mellitus with diabetic chronic kidney disease; I12.0 Hypertensive chronic kidney disease with stage 5 chronic kidney disease or end stage renal disease; I25.10 Atherosclerotic heart disease of native coronary artery without angina pectoris; E78.5 Hyperlipidemia, unspecified; K21.9 Gastro-esophageal reflux disease without esophagitis; D50.9 Iron deficiency anemia, unspecified; I48.91 Unspecified atrial fibrillation; Z79.01 Long term (current) use of anticoagulants

== ENCOUNTER 2018-08-26 21:02 | Inpatient (IN) | payer MEDICARE, OTHER ==
[~2018-08-26] VITALS: Ht 167.6 cm; Wt 72.5 kg
[2018-08-26] MEDS: APIXABAN 2.5 MG TAB (ELIQUIS) PO SCH (21:00)
[2018-08-26] MEDS: HumaLOG INSULIN (NovoLOG) PER UNIT SC SCH (21:00)
[2018-08-26] MEDS: SIMVASTATIN 40 MG TAB PO SCH (21:00)
[2018-08-26] MEDS: ALLOPURINOL 100 MG TAB PO SCH (21:00)
[2018-08-26] MEDS: CARVedilol 6.25 MG TAB PO SCH (21:00)
[2018-08-26] MEDS: DOCUSATE SODIUM 100 MG CAP PO SCH (21:00)
[2018-08-26] MEDS: MULTIVITAMINS/MINERALS THERAP 1 TAB PO SCH (21:00)
[~2018-08-26 21:02] MED LIST changes: -LIDOCAINE 1% MDV 20ML VIAL As Ordered ONE; -LIDOCAINE 2% MDV 20 ML VIAL As Ordered ONE; -PRED10TA2 PO; -VANC1INJ38 IV; -VITATAB73 PO
[2018-08-26] MEDS ORDERED: PRED10TA2 PO (21:17)
[2018-08-26] MEDS ORDERED: VANCOMYCIN HCL 1,000 MG, VIAL MATE ADAPTER 1 EACH in D5W 250 ML IV ONE (22:15)
[2018-08-26] MEDS ORDERED: ACETAMINOPHEN TAB 650MG DOSE (2X325MG) PO ONE (22:30)
[2018-08-26 23:08] LABS: BASO # 0.1 10^3/uL (0.0-0.2); BASO % 0.3 % (0.0-1.0); EOS % 0.1 % (0.0-3.0); HEMATOCRIT 26.8 % (42.0-52.0); HEMOGLOBIN 8.8 g/dl (13.5-17.5); LYMPH # 1.2 10^3/uL (1.5-4.5); LYMPH % 6.2 % (24.0-44.0); MEAN CORPUSCULAR HEMOGLOBIN 33.1 pg (27.0-33.0); MEAN CORPUSCULAR HGB CONC 32.8 g/dl (32.0-36.5); MEAN CORPUSCULAR VOLUME 100.8 fl (80.0-96.0); MONO # 0.7 10^3/uL (0.0-0.8); MONO % 3.8 % (0.0-5.0); NEUTROPHILS # 16.4 10^3/uL (1.8-7.7); NEUTROPHILS % 86.4 % (36.0-66.0); PLATELET COUNT, AUTOMATED 166 10^3/uL (150-450); RED BLOOD COUNT 2.66 10^6/uL (4.30-6.10); WHITE BLOOD COUNT 18.9 10^3/uL (4.0-10.0)
[2018-08-26] MEDS ORDERED: CARV6.25 PO (23:10)
[2018-08-26] MEDS ORDERED: VITATAB73 PO (23:10)
[2018-08-27] MEDS ORDERED: MAALOX 30 ML SUSP *UDC PO PRN (00:15)
[2018-08-27] MEDS ORDERED: GLUCOSE 4 GM CHEW TABLET PO PRN (00:15)
[2018-08-27] MEDS ORDERED: DEXTROSE 50% 50 ML SYRINGE IV PRN (00:15)
[2018-08-27] MEDS ORDERED: GLUCAGON FOR INJ 1 MG VIAL (J1610) SC PRN (00:15)
[2018-08-27] MEDS ORDERED: MOM 30ML SUSPENSION UDC PO PRN (00:15)
--- NOTE | 2018-08-27 00:21 | HPEPDOC ---
General Date of Admission 08/27/18 Date of Service: Aug 27, 2018 Attending Physician: HAYDEE CLAIRE MD Chief Complaint The patient is a 87-year-old male admitted with a reason for visit of General Me dical Complaint. Source: Patient Exam Limitations: No limitations Timing/Duration: Unsure Severity: Other (none) Associated Symptoms: Other (, not applicable) History of Present Illness 86 years old white male with a end-stage renal disease on hemodialysis, has been experiencing in intermittent fever all week. Cultures were done and shows gram- positive cocci and was patient sent to ED for IV antibiotics. Patient denies any complaints but complaining of generalized tiredness, no shortness of breath, no nausea, vomiting, no chest pain, etc. Home Medications Scheduled Allopurinol (Allopurinol) 100 Mg Tab, 100 MG PO BID, (Reported) Apixaban (Eliquis) 2.5 Mg Tab, 2.5 MG PO BID, (Reported) Carvedilol (Carvedilol) 6.25 Mg Tablet, 6.25 MG PO BID, (Reported) Ezetimibe (Ezetimibe) 10 Mg Tab, 10 MG PO QHS, (Reported) Glipizide (Glipizide ER) 2.5 Mg Tab, 2.5 MG PO QPM, (Reported) Levocetirizine Dihydrochloride (Levocetirizine Dihydrochloride) 5 Mg Tab, 5 MG PO QHS, (Reported) Multivitamins (Thera M Plus Tablet) 1 Tab Tab, 1 TAB PO QHS, (Reported) Omeprazole (Omeprazole) 20 Mg Cap, 20 MG PO BID, (Reported) Prednisone (Prednisone) 10 Mg Tablet, 10 MG PO TAPER, (Reported) 20MG X 3 DAYS,15MG X 3 DAYS,10 X 3 DAYS, 5MG X 3 DAYS, THEN STOP. Simvastatin (Simvastatin) 40 Mg Tab, 40 MG PO QHS, (Reported) Vitamin B Complex (Vitamin B Complex) 1 Each Tablet, 1 TAB PO QHS, (Reported) Allergies Coded Allergies: Penicillins (Verified Allergy, Unknown, rash, 08/26/18) prasugrel (Verified Allergy, Unknown, hives, 08/26/18) Past Medical History Medical History End-stage renal disease on hemodialysis, aortic wall replacement, cardiac bypass surgery, pacemaker placement, diabetes mellitus, prostate carcinoma status post radiation Surgical History As above Family History Significant Family History: No pertinent family hx Social History * Smoker: Denies Alcohol: Denies Drugs: denies A-FIB/CHADSVASC A-FIB History Current/History of A-Fib/PAF?: No Review of Systems Constitutional: Reports: Fever, Fatigue Eyes: Denies: Pain, Vision change, Conjunctivae inflammation, Eyelid inflammation, Redness, Other ENT: Denies: Head Aches, Ear Pain, Dysphagia, Sinus Congestion, Post Nasal Drip, Sore Throat, Epistaxis, Other Symptoms Skin: Denies: Rash, Lesions, Jaundice, Bruising, Itching, Dry, Breakdown, Nail Changes, Other Pulmonary: Denies: Dyspnea, Cough, Pleuritic Chest Pain, Other Symptoms Cardiovascular: Denies: Chest Pain, Palpitations, Orthopnea, Paroxysmal Noc. Dyspnea, Edema, Lt Headedness, Other Symptoms Gastrointestinal: Denies: Nausea, Vomiting, Abdominal Pain, Diarrhea, Constipation, Melena, Hematochezia, Other Symptoms Genitourinary: Denies: Dysuria, Frequency, Incontinence, Hematuria, Retention, Other Symptoms Endocrine: Denies: Polydipsia, Polyphagia, Polyuria, Heat Intolerance, Cold Intolerance, Other Endocrine Sx Musculoskeletal: Denies: Neck Pain, Back Pain, Shoulder Pain, Arm Pain, Hand Pain, Leg Pain, Foot Pain, Joint Pain, Muscle Pain, Spasms, Other Symptoms Neurological: Denies: Weakness, Numbness, Incoordination, Change in speech, Confusion, Seizures, Other Symptoms Psych: Denies: Mood Normal, Anxiety, Depression, Memory Issues, Thoughts of Self Harm, Anger, Thoughts of Harming Other, Other Psych Physical Examination General Exam: Positive: Alert, Cooperative Eye Exam: Positive: PERRLA, Conjunctiva & lids normal ENT Exam: Positive: Atraumatic, Mucous membr. moist/pink Neck Exam: Positive: Supple Chest Exam: Positive: Clear to auscultation, Normal air movement Heart Exam: Positive: Rate Normal, Normal S1, Normal S2 Abdomen Exam: Positive: Normal bowel sounds, Soft Extremity Exam: Positive: Normal pulses Skin Exam: Positive: Nl turgor and temperature Neuro Exam: Positive: Normal Speech, Strength at 5/5 X4 ext, Sensation Intact Psych Exam: Positive: Mental status NL, Mood NL, Oriented x 3 Vital Signs Vital Signs Date Time Temp Pulse Resp B/P (MAP) Pulse Ox O2 Delivery O2 Flow Rate FiO2 08/26/18 23:17 80 08/26/18 23:02 08/26/18 22:58 99.4 08/26/18 22:17 18 08/26/18 21:11 93 Room Air Laboratory Data Labs 24H Laboratory Tests 2 08/26/18 22:38: Immature Granulocyte % (Auto) 3.2H, White Blood Count 18.9H, Red Blood Count 2.66L, Hemoglobin 8.8L, Hematocrit 26.8L, Mean Corpuscular Volume 100.8H, Mean Corpuscular Hemoglobin 33.1H, Mean Corpuscular Hemoglobin Concent 32.8, Red Cell Distribution Width 16.6H, Platelet Count 166, Neutrophils (%) (Auto) 86.4H, Lymphocytes (%) (Auto) 6.2L, Monocytes (%) (Auto) 3.8, Eosinophils (%) (Auto) 0.1, Basophils (%) (Auto) 0.3, Neutrophils # (Auto) 16.4H, Lymphocytes # (Auto) 1.2L, Monocytes # (Auto) 0.7, Eosinophils # (Auto) 0.0, Basophils # (Auto) 0.1, Nucleated Red Blood Cells % (auto) 0.0 08/26/18 23:17: CBC/BMP Laboratory Tests 08/26/18 22:38 Red Blood Count 2.66 L, Mean Corpuscular Volume 100.8 H, Mean Corpuscular Hemoglobin 33.1 H, Mean Corpuscular Hemoglobin Concent 32.8, Red Cell Distribution Width 16.6 H, Neutrophils (%) (Auto) 86.4 H, Lymphocytes (%) (Auto) 6.2 L, Monocytes (%) (Auto) 3.8, Eosinophils (%) (Auto) 0.1, Basophils (%) (Auto) 0.3, Neutrophils # (Auto) 16.4 H, Lymphocytes # (Auto) 1.2 L, Monocytes # (Auto) 0.7, Eosinophils # (Auto) 0.0, Basophils # (Auto) 0.1 Problems (1) Bacteremia due to Gram-positive bacteria Status: Acute Problem Text: Admit patient to medical floor Vanessa did receive 1 dose of vancomycin in ED Will continue vancomycin and Zosyn to be adjusted by pharmacy Continue all home medications Except glipizide will be on hold Ingested blood sugar every before meals and at bedtime with coverage Please follow blood cultures. For the final sensitivity and ID of bacteria DVT prophylaxis, patient is already on anticoagulants Renal/diabetic diet Out of bed as tolerated Nephrology consultation with Dr. Cardona Further, as per nephrology (2) Renal failure Status: Acute Problem Text: As above Plan / VTE VTE Prophylaxis Ordered?: Yes HAYDEE CLAIRE MD Aug 27, 2018 00:21
[2018-08-27 00:23] LABS: ALBUMIN 2.4 GM/DL (3.2-5.2); BILIRUBIN,TOTAL 0.6 MG/DL (0.2-1.0); C REACTIVE PROTEIN QUANTITATIV 14.9 MG/DL (0.00-0.30); CALCIUM LEVEL 8.2 MG/DL (8.8-10.2); CREATININE FOR GFR 4.58 MG/DL (0.70-1.30); GLOMERULAR FILTRATION RATE 13.1 (>35); POTASSIUM SERUM 4.3 MEQ/L (3.5-5.1)
--- NOTE | 2018-08-27 00:27 | REPVR ---
EXAM: CT Chest Without Contrast EXAM DATE/TIME: 08/26/2018 10:57 PM CLINICAL HISTORY: 87 years old, male; Cough TECHNIQUE: Imaging protocol: Axial computed tomography images of the chest without intravenous contrast. Coronal and sagittal reformatted images were created and reviewed. 3D rendering: MIP reconstructed images were created and reviewed. Radiation optimization: All CT scans at this facility use at least one of these dose optimization techniques: automated exposure control; mA and/or kV adjustment per patient size (includes targeted exams where dose is matched to clinical indication); or iterative reconstruction. COMPARISON: CT Chest without contrast 04/25/2018 7:52 AM FINDINGS: Tubes, catheters and devices: Pacemaker in position from the left. Lungs: Minimal bilateral lower lung fibro-atelectatic change. Pleural space: Trace bilateral pleural effusions. Heart: Status post sternotomy and CABG. Aortic valve replacement with TAVR. Pulmonary arteries: The main pulmonary artery measures 30 mm. Aorta: The ascending thoracic aorta measures 37 mm. Lymph nodes: Unremarkable. No enlarged lymph nodes. Bones/joints: Unremarkable. No acute fracture. Soft tissues: Unremarkable. Other findings: Anterior wedge configuration of multiple thoracic segments which are similar to the prior study. IMPRESSION: 1. Decreased bilateral pleural effusions since 04/25/2018 with trace residual. 2. Minimal bilateral lower lobe fibro-atelectatic change with decreased atelectasis since prior study. 3. Status post sternotomy and CABG. There is also TAVR and pacemaker. Electronically signed by: Miguel Carreno On 08/27/2018 00:26:39 AM
[2018-08-27] MEDS ORDERED: VANCOMYCIN HCL 750 MG, VIAL MATE ADAPTER 1 EACH in D5W 250 ML IV SCH (00:30)
--- NOTE | 2018-08-27 00:33 | PHACANCOPD ---
PHARMACY VANCOMYCIN DOSING Pt Demographics Demographics Patient Age:87 , Weight:75.000 , Gender: male Adjusted Body Weight Date: 08/27/18, Adjusted Body Weight: Kg Events Past 24 Hours Events Past 24 Hours: NO: Dialysis, Diuretic Therapy, Change in CrCl, Fever, Elevation in WBC, Pending Diagnostics, Pending Procedures, Other Vancomycin Vancomycin Target Ranges: 10-20 mcg/ml Vancomycin Load Y/N: Yes Load Dose Date Time Vancomycin Load Dose: 1000MG Date: 08-27 Time: 2300 Vancomycin Dose Date: 08/27/18. Current Vancomycin Dose: [VANCOMYCIN HD] Intermittent Dosing?: Yes Labs Labs Item Value Date Time White Blood Count 18.9 10^3/uL H 08/26/182237 Fasting Glucose 298 MG/DL H 08/26/18 2317 Creatinine 4.58 MG/DL H 08/26/18 2317 Glomerular Filtration Rate 13.1 L 08/26/18 2317 Blood Urea Nitrogen 68 MG/DL H 08/26/18 231 Vital Signs Label Value Date Time Patient Temperature 99.4 degrees F 08/26/182257 Temperature Source Oral 08/26/182257 Creatinine Clearance Date:08/27/18. Creatinine Clearance: [HEMODIALYSIS]. Pending Labs Random 08-27 in am Assessment and Plan Maintaining Current Dose?: Yes Reason for dose change: No Dose Change Pharmacist Note Pharmacist Note Date: 08/27/18. Pharmacist note:Will dose patient by levels after dialysis. Will monitor and make adjustments as needed. EBONY ALEJO PHARMACY Aug 27, 2018 00:33
[2018-08-27] MEDS: HumaLOG INSULIN (NovoLOG) PER UNIT SC SCH ×4 (08:06→21:39)
[2018-08-27 08:45] LABS: BASO % 0.2 % (0.0-1.0); EOS % 0.1 % (0.0-3.0); HEMATOCRIT 28.4 % (42.0-52.0); HEMOGLOBIN 9.2 g/dl (13.5-17.5); LYMPH # 0.7 10^3/uL (1.5-4.5); LYMPH % 3.4 % (24.0-44.0); MEAN CORPUSCULAR HGB CONC 32.4 g/dl (32.0-36.5); MEAN CORPUSCULAR VOLUME 101.8 fl (80.0-96.0); MONO # 0.5 10^3/uL (0.0-0.8); MONO % 2.5 % (0.0-5.0); NEUTROPHILS # 19.2 10^3/uL (1.8-7.7); NEUTROPHILS % 90.9 % (36.0-66.0); PLATELET COUNT, AUTOMATED 146 10^3/uL (150-450); RED BLOOD COUNT 2.79 10^6/uL (4.30-6.10); WHITE BLOOD COUNT 21.1 10^3/uL (4.0-10.0)
[2018-08-27 09:09] LABS: C REACTIVE PROTEIN QUANTITATIV 17.6 MG/DL (0.00-0.30); CALCIUM LEVEL 8.3 MG/DL (8.8-10.2); CREATININE FOR GFR 5.13 MG/DL (0.70-1.30); GLOMERULAR FILTRATION RATE 11.5 (>35); MAGNESIUM LEVEL 1.9 MG/DL (1.8-2.4); POTASSIUM SERUM 4.4 MEQ/L (3.5-5.1)
[2018-08-27] MEDS: ACETAMINOPHEN TAB 650MG DOSE (2X325MG) PO PRN (09:30)
[2018-08-27] MEDS: APIXABAN 2.5 MG TAB (ELIQUIS) PO SCH ×2 (09:31→21:40)
[2018-08-27] MEDS: predniSONE 10 MG TAB PO SCH (09:31)
[2018-08-27] MEDS: CARVedilol 6.25 MG TAB PO SCH ×2 (09:31→21:40)
[2018-08-27] MEDS: ALLOPURINOL 100 MG TAB PO SCH ×2 (09:31→21:40)
[2018-08-27] MEDS: DOCUSATE SODIUM 100 MG CAP PO SCH ×3 (09:31→21:39)
[2018-08-27] MEDS ORDERED: DARBEPOETIN 100 MCG/0.5 ML *DIALYSIS* SYRINGE (J0882) IV SCH (10:15)
[2018-08-27 10:31] LABS: ERYTHROCYTE SEDIMENTATION RATE 106 mm/hr (0-30)
[2018-08-27 10:49] LABS: PERCENT SATURATION 9.6 % (19.7-50.0)
[2018-08-27] MEDS ORDERED: VANCOMYCIN HCL 500 MG in D5W MINI-BAG PLUS 100 ML IV ONE (14:00)
[2018-08-27] MEDS ORDERED: **VANCO AFTER HD** MISC XX SCH (16:00)
[2018-08-27 16:10] VITALS: BP 139/63
--- NOTE | 2018-08-27 16:37 | IPNPDOC ---
Text Note Date of Service The patient was seen on 08/27/18. NOTE Subjective: Patient is an 87-year-old male with a PMHx of ESRD on HD, A. fib (on Eliquis), AV replacement, CAD s/p CABG, SSS s/p PM, NIDDM2, DLP, Gout, Prostate CA s/p radiation who presented to the emergency room at the direction of nephrology because of positive blood cultures for staph aureus. Patient was admitted to hospitalist service for further evaluation and treatment. Nephrology was called in consultation. Infectious disease was called in consultation. Patient was seen and examined at the bedside. Currently patient denies chest pain, shortness of breath or palpitations. He does report fatigue. Denies any nausea, vomiting, abdominal pain, constipation, diarrhea. Does report making some amount of urine but denies any discomfort. Objective: Vitals (See below) General: Lying in bed, no acute distress, comfortable, AAOx3 HEENT: NC, AT CVS: RRR, +S1S2 Lungs: Fair air entry b/l, -w/r/r Abdomen: Soft, ND, NT Extremities: - Edema, - Calf tenderness, R arm fistula - no evidence of infection Assessment and plan: Gram-positive bacteremia - 2/2 staph aureus - Patient recently had a PermCath that was removed on 08/17/2018 - Patient remains hemodynamically stable and afebrile - Patient has an elevation of leukocytosis, ESR and CRP - Repeat blood cultures were acquired - Transthoracic echocardiogram will be performed today - c/w Vancomycin and Zosyn (Day #2) - Infectious disease has been consulted ESRD on HD - Nephrology has been consulted A. fib - c/w rate control with carvedilol - c/w full anticoagulation with Eliquis AV replacement CAD s/p CABG SSS s/p PM NIDDM2 - c/w ISS DLP - c/w Simvastatin Gout - c/w Allopurinol Prostate CA - s/p radiation DVT prophylaxis - c/w full anticoagulation with Eliquis VS,Fishbone, I+O VS, Fishbone, I+O Laboratory Tests 08/26/18 22:38 Red Blood Count 2.66 L, Mean Corpuscular Volume 100.8 H, Mean Corpuscular Hemoglobin 33.1 H, Mean Corpuscular Hemoglobin Concent 32.8, Red Cell Di stribution Width 16.6 H, Neutrophils (%) (Auto) 86.4 H, Lymphocytes (%) (Auto) 6.2 L, Monocytes (%) (Auto) 3.8, Eosinophils (%) (Auto) 0.1, Basophils (%) (Auto) 0.3, Neutrophils # (Auto) 16.4 H, Lymphocytes # (Auto) 1.2 L, Monocytes # (Auto) 0.7, Eosinophils # (Auto) 0.0, Basophils # (Auto) 0.1 08/26/18 23:17 Calcium Level 8.2 L, Aspartate Amino Transf (AST/SGOT) 24, Alanine Aminotransferase (ALT/SGPT) 57, Alkaline Phosphatase 92, Total Bilirubin 0.6, Total Protein 6.0 L, Albumin 2.4 L 08/27/18 08:26 Red Blood Count 2.79 L, Mean Corpuscular Volume 101.8 H, Mean Corpuscular Hemoglobin 33.0, Mean Corpuscular Hemoglobin Concent 32.4, Red Cell Distribution Width 16.3 H, Neutrophils (%) (Auto) 90.9 H, Lymphocytes (%) (Auto) 3.4 L, Monocytes (%) (Auto) 2.5, Eosinophils (%) (Auto) 0.1, Basophils (%) (Auto) 0.2, Neutrophils # (Auto) 19.2 H, Lymphocytes # (Auto) 0.7 L, Monocytes # (Auto) 0.5, Eosinophils # (Auto) 0.0, Basophils # (Auto) 0.0, Calcium Level 8.3 L Vital Signs Date Time Temp Pulse Resp B/P (MAP) Pulse Ox O2 Delivery O2 Flow Rate FiO2 08/27/18 16:15 70 99 08/27/18 16:01 20 102/54 (70) 08/27/18 12:24 97.4 08/27/18 08:00 Nasal Cannula 2.0 ANGEL LIANG MD Aug 27, 2018 16:37
[2018-08-27] MEDS ORDERED: SLF 3 ML SYR IV PRN (18:00)
[2018-08-27 20:00] VITALS: BP 111/55
[2018-08-27] MEDS: MULTIVITAMINS/MINERALS THERAP 1 TAB PO SCH (21:40)
[2018-08-27] MEDS: SIMVASTATIN 40 MG TAB PO SCH (21:40)
[2018-08-27] MEDS: SLF 3 ML SYR IV SCH (21:43)
--- NOTE | 2018-08-27 22:39 | CR ---
DATE OF CONSULTATION: 08/27/2018 REQUESTING PHYSICIAN: Dr. Shelton August CONSULTING PHYSICIAN: Dr. Noguera REASON FOR CONSULTATION: Management of end-stage renal disease and hemodialysis. CHIEF COMPLAINT: The patient was sent from dialysis center because of positive blood cultures. HISTORY OF THE PRESENT ILLNESS: Shaheed Lee is an 87-year-old male with a past medical history of end-stage renal disease, on hemodialysis every Monday, , Monday, history of congestive heart failure and bioprosthetic aortic valve replacement, diabetes mellitus type 2, multiple other comorbidities as mentioned below. The patient was having fevers with chills and rigors for about the last 3-4 days. He was also having some cough but no phlegm. He was feeling weak and tired. He got the blood cultures drawn on last during dialysis because of the fevers. However, no antibiotics were started. Lab called nephrology service over the weekend on Monday, yester, because of positive blood cultures in two out of two culture bottles. The patient was growing gram-positive cocci in clusters. The patient's daughter was called, and the patient was asked to come to the emergency room, and as reported by daughter, the patient was very drowsy and sleepy and tired and difficult to arouse all day. He also had low grade temperatures. He was brought to the emergency room. Initial blood cultures were drawn, and the patient was started on IV vancomycin. He was admitted under the hospitalist service and nephrology service was called for further help in the management of end-stage renal disease and hemodialysis. I saw and evaluated the patient today morning at the bedside. The patient reports that he is feeling slightly better today as compared with yesterday after getting the antibiotics. He also reports that he is having pain, tenderness and mild erythema in the right-sided knee joint where he had knee replacement. PAST MEDICAL HISTORY: Past medical history of end-stage renal disease, on hemodialysis every Monday, , Monday, chronic gout secondary to end-stage renal disease, diabetes mellitus type 2, hyperlipidemia, coronary artery disease, CA prostate status post radiation therapy, history of bioprosthetic aortic valve and systolic congestive heart failure. PAST SURGICAL HISTORY: Status post arteriovenous (AV) fistula placement. The patient also had tunneled dialysis catheter which was removed about 10 days ago. History of aortic valve replacement, coronary artery bypass surgery, status post pacemaker placement. Right knee replacement. ALLERGIES: The patient is allergic to PRASUGREL and PENICILLIN. FAMILY HISTORY: No significant family history of end-stage renal disease requiring hemodialysis. SOCIAL HISTORY: The patient denies any smoking, illicit drug abuse or alcohol abuse. REVIEW OF SYSTEMS: Constitutional: Patient reports that he had fevers and chills for the last 3-4 days at home. Eyes: He denies any blurry vision, double vision. ENT: He denies any dysphagia, odynophagia. He does report having hearing difficulty. Cardiovascular: He denies any chest pain or palpitations. Respiratory: He does report some cough, but he denies any phlegm. Gastrointestinal (GI): He denies any nausea or vomiting. Genitourinary: He denies any dysuria or hematuria. Musculoskeletal: He reports right knee pain and edema and decreased range of movement. Central nervous system (P[employer]MAN [employer]CTOR): He denies any strokes or seizures, but his daughter reported that he was feeling very sleepy and drowsy. Endocrine: He reports a history of diabetes mellitus type 2. Hematology/Oncology: He denies any easy bleeding or bruising. Skin: He denies any rashes or ulcers. Psychiatric: He denies any depression or anxiety. All other review of systems is negative. PHYSICAL EXAMINATION: General: The patient is awake, alert, oriented times three, lying in bed, in no apparent distress. Vital signs: Temperature is 97.4 degrees Fahrenheit, blood pressure 115/54, pulse is 89, respiratory rate of 18, saturating 97% on room air. Maximum temperature (T max) is 101.3 degrees Fahrenheit early in the morning today. Head and neck exam: Extraocular muscles intact. Pupils equally round and reactive to light. Mucous membranes are moist. Neck is supple. There is no jugular venous distention (JVD). Cardiovascular: S1, S2, pacemaker was noted. Trace edema of the bilateral lower extremities. Grade 1/6 systolic ejection murmur was noted. Respiratory: Mildly decreased breath sounds at the bases, otherwise no active rales or rhonchi. Abdomen: Soft. Positive bowel sounds. Nontender. No organomegaly. Musculoskeletal: Decreased range of movement of the right knee. Right knee is a little bit warmer as compared with the left, and the patient has surgical scar from the right knee replacement. P[employer]: No focal deficit. Power is 5/5 in all extremities. Skin: No rashes or ulcers. Lymph Nodes: No significant cervical, axillary, or inguinal lymphadenopathy. LAB REVIEW: CBC showed a WBC of 21.1, hemoglobin is 9.2, platelets are 146. Urinalysis showed 2+ protein, negative nitrite, trace leukocyte esterase. BMP showed sodium 133, potassium 4.4, chloride 96, bicarbonate 26, BUN 75, creatinine is 5.1, calcium 8.3, iron is 14, TIBC 146, transferrin saturation 9.6, ferritin is 2600, C-reactive protein is 17.6. Random vancomycin level is 12.8. Microbiology: Repeat blood cultures and urine cultures are pending. Blood culture done at dialysis center 3 days ago is growing Staphylococcus two out of two. IMAGING: A CT scan of the chest was done yesterday, which showed decreased bilateral pleural effusions since April 2018, status post sternotomy and coronary artery bypass graft (CABG), TAVR and pacemaker was also noted. CURRENT INPATIENT MEDICATIONS: The patient is getting vancomycin 1 gram IV overnight and 500 mg in the morning was given. He is on Tylenol as needed, allopurinol 100 mg by mouth twice a day, Mylanta as needed, Eliquis 2.5 mg by mouth twice a day, Coreg 6.25 mg by mouth twice a day, Aranesp 200 mcg IV with dialysis, Colace 100 mg by mouth twice a day, insulin sliding scale, milk of magnesia as needed, multivitamin one tablet daily, prednisone 10 mg daily, simvastatin 40 mg nightly. ASSESSMENT: 87-year-old male with end-stage renal disease on hemodialysis, history of right knee replacement, bioprosthetic aortic valve and pacemaker, admitted this time with gram-positive bacteremia. PLAN: 1. Staphylococcus Epidermidis bacteremia. The patient has right knee prosthesis. He has bioprosthetic valve, and he has pacemaker leads. Repeat cultures are sent from here. The patient came in with fevers, leukocytosis and positive cultures. He has already been started on IV vancomycin. I highly suspect that either his right knee or his prosthetic valve is infected. Primary team has already called infectious disease on board. If a 2D echocardiogram does not show any vegetation, the patient would need transesophageal echocardiogram 2. End-stage renal disease, on hemodialysis. The patient's regular dialysis days are Monday, , Monday. He was dialyzed over the weekend. Next hemodialysis will be tomorrow as per his regular schedule. 3. Anemia secondary to end-stage renal disease. The patient is iron deficient as well. However, I would avoid giving him iron at this time while he is actively bacteremic. Continue current dose of Aranesp with dialysis. 4. Chronic gout secondary to end-stage renal disease. Continue home dose of allopurinol 100 mg by mouth twice a day. 5. Congestive heart failure and history of coronary artery disease. Continue current dose of Coreg 6.25 mg by mouth twice a day. Volume status is optimized with dialysis. Patient is already anticoagulated with Eliquis 6. Chronic atrial fibrillation. Continue anticoagulation with Eliquis. Heart rate is controlled at this time. Thank you for involving me in the care of this patient. I shall be happy to follow the patient along with you tomorrow morning. MTDD
--- NOTE | 2018-08-27 23:42 | ECHO ---
DATE OF PROCEDURE: 08/27/2018 REFERRING PHYSICIAN: Dr. Ishaan Brownlee INDICATION: Sepsis. HEIGHT: 165 cm WEIGHT: 75 kg 2D MEASUREMENTS: LVOT: 2.0 cm Left atrium: 4.9 cm Ventricular septum: 1.43 cm Posterior wall: 1.43 cm Left ventricle diastole: 4.2 cm Inferior vena cava: 2.2 cm with more than 50% respiratory variation. DOPPLER MEASUREMENTS: Aortic valve velocity: 192 cm/s LVOT velocity: 87.7 cm/s LVOT VTI: 18.0 cm Mild mitral regurgitation. Mitral E velocity (continuous wave): 233 ms Mean aortic valve gradient: 11 mmHg Mitral E velocity (pulse wave): 217 cm/s Mitral A velocity (pulse wave): 180 cm/s Mitral deceleration time (pulse wave): 408 ms Moderate tricuspid regurgitation. Estimated right ventricle systolic pressure: 65 mmHg assuming a pressure of 10 mmHg. MITRAL ANNULAR TISSUE DOPPLER: E prime septal: 3.2 cm/s E prime lateral: 3.1 cm/s DESCRIPTION: Rhythm was predominantly atrial paced. Image quality was fair. This was a 2D, M-mode, color flow Doppler and pulse wave Doppler examination and included mitral annular tissue Doppler. CONCLUSIONS: 1. Severe mitral annular calcification. Appearance of a large vegetation, which appears to be attached to the posterior mitral leaflet. Measurements of this vegetation were 2.0 x 0.9 cm, 1.6 x 1.5 cm, and 1.4 x 1.8 cm. Moderate mitral stenosis. Mild mitral regurgitation. 2. Mild concentric left ventricle hypertrophy. Normal regional left ventricular (LV) wall motion and wall thickening. Normal LV systolic function. Left ventricular ejection fraction (LVEF) 60% by visual estimate. 3. Moderate left atrial dilatation. 4. Suggestive of severe elevation of estimated right ventricle systolic pressure. Moderate tricuspid regurgitation. Structurally normal appearing tricuspid leaflets. Normal right ventricle size and systolic function. 5. Presence of endocardial, right atrial and right ventricle pacemaker leads. 6. No pericardial effusion. 7. Normal appearing and well-seated aortic valve bioprosthesis without apparent vegetations. No aortic regurgitation or stenosis. ADDITIONAL COMMENTS AND RECOMMENDATIONS: In view of the large size of the vegetation (more than 1.0 cm), suggest transfer to a tertiary care center that has cardiac surgery services. Recommend transesophageal echocardiogram (MARIAN). If patient is being transferred to a tertiary care center, then the MARIAN can be performed at the tertiary care center.
[2018-08-27 23:59] VITALS: BP 100/54
[2018-08-28 04:00] VITALS: BP 120/84
[2018-08-28 05:26] LABS: HEMATOCRIT 25.8 % (42.0-52.0); HEMOGLOBIN 8.4 g/dl (13.5-17.5); MEAN CORPUSCULAR HEMOGLOBIN 32.9 pg (27.0-33.0); MEAN CORPUSCULAR HGB CONC 32.6 g/dl (32.0-36.5); MEAN CORPUSCULAR VOLUME 101.2 fl (80.0-96.0); PLATELET COUNT, AUTOMATED 102 10^3/uL (150-450); RED BLOOD COUNT 2.55 10^6/uL (4.30-6.10); WHITE BLOOD COUNT 17.8 10^3/uL (4.0-10.0)
[2018-08-28 05:53] LABS: ALBUMIN 2.2 GM/DL (3.2-5.2); BILIRUBIN,TOTAL 0.6 MG/DL (0.2-1.0); CALCIUM LEVEL 8.2 MG/DL (8.8-10.2); CREATININE FOR GFR 5.72 MG/DL (0.70-1.30); GLOMERULAR FILTRATION RATE 10.1 (>35); MAGNESIUM LEVEL 2.2 MG/DL (1.8-2.4); TOTAL PROTEIN 6.3 GM/DL (6.4-8.2)
[2018-08-28] MEDS: SLF 3 ML SYR IV SCH ×2 (06:04→13:18)
[2018-08-28] MEDS: ALLOPURINOL 100 MG TAB PO SCH (06:04)
[2018-08-28 08:00] VITALS: BP 131/60
[2018-08-28] MEDS: HumaLOG INSULIN (NovoLOG) PER UNIT SC SCH ×2 (08:03→12:00)
[2018-08-28] MEDS ORDERED: VANC1INJ38 IV (08:39)
[2018-08-28] MEDS: DOCUSATE SODIUM 100 MG CAP PO SCH (09:00)
--- NOTE | 2018-08-28 10:18 | IPNPDOC ---
Date Seen The patient was seen on 08/28/18. 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 Cardoso Cardiothoracic Pathologist: Dr. Ludwig DISCHARGE DIAGNOSES: ENDOCARDITIS -LARGE VEGETATION 2.0 x 0.9 cm, 1.6 x 1.5 cm, and 1.4 x 1.8 cm. 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 DISCHARGE MEDICATIONS: PLS SEE BELOW INPATIENT CONSULTANTS: ECHO READ BY DR. CAMARILLO, SALES ENABLEMENT ANALYST SURGICAL GARMENT INSPECTOR DR. YANEZ HISTORY OF PRESENTING ILLNESS: Patient is an 87-year-old male with a PMHx of ESRD on HD, A. fib (on Eliquis), AV replacement, CAD s/p CABG, SSS s/p PM, NIDDM2, DLP, Gout, Prostate CA s/p radiation who presented to the emergency room at the direction of nephrology because of positive blood cultures for staph aureus. Patient was admitted to hospitalist service for further evaluation and treatment. Nephrology was called in consultation. Infectious disease was called in consultation. HOSPITAL COURSE: staph aureus Endocarditis - Patient recently had a PermCath that was removed on 08/17/2018 - Patient remains hemodynamically stable and afebrile - Patient has an elevation of leukocytosis, ESR and CRP - Repeat blood cultures were acquired - Transthoracic echocardiogram: large vegetation. -Cardiology recommended transfer to tertiary center - c/w Vancomycin and Zosyn renally dosed - Infectious disease has been consulted ESRD on HD - Nephrology has been consulted A. fib - c/w rate control with carvedilol - held eliquis due to endocarditis eval for mitral valve replacement. AV replacement CAD s/p CABG SSS s/p PM NIDDM2 - c/w ISS DLP - c/w Simvastatin Gout - c/w Allopurinol Prostate CA - s/p radiation DISCHARGE PHYSICAL EXAMINATION: Vitals (See below) General: eating breakfast sitting at the bedside, no acute distress, comfortable, AAOx3 HEENT: NC, AT CVS: RRR, +S1S2, apical murmur 2/6 Lungs: Fair air entry b/l, -w/r/r Abdomen: Soft, ND, NT Extremities: - Edema, - Calf tenderness, R arm fistula - no evidence of infection LABORATORY DATA, IMAGING STUDIES, MICROBIOLOGY: Please see below. DATE OF PROCEDURE: 08/27/2018 REFERRING PHYSICIAN: Dr. Ishana Brownlee INDICATION: Sepsis. HEIGHT: 165 cm WEIGHT: 75 kg 2D MEASUREMENTS: LVOT: 2.0 cm Left atrium: 4.9 cm Ventricular septum: 1.43 cm Posterior wall: 1.43 cm Left ventricle diastole: 4.2 cm Inferior vena cava: 2.2 cm with more than 50% respiratory variation. DOPPLER MEASUREMENTS: Aortic valve velocity: 192 cm/s LVOT velocity: 87.7 cm/s LVOT VTI: 18.0 cm Mild mitral regurgitation. Mitral E velocity (continuous wave): 233 ms Mean aortic valve gradient: 11 mmHg Mitral E velocity (pulse wave): 217 cm/s Mitral A velocity (pulse wave): 180 cm/s Mitral deceleration time (pulse wave): 408 ms Moderate tricuspid regurgitation. Estimated right ventricle systolic pressure: 65 mmHg assuming a pressure of 10 mmHg. MITRAL ANNULAR TISSUE DOPPLER: E prime septal: 3.2 cm/s E prime lateral: 3.1 cm/s DESCRIPTION: Rhythm was predominantly atrial paced. Image quality was fair. This was a 2D, M-mode, color flow Doppler and pulse wave Doppler examination and included mitral annular tissue Doppler. CONCLUSIONS: 1. Severe mitral annular calcification. Appearance of a large vegetation, which appears to be attached to the posterior mitral leaflet. Measurements of this vegetation were 2.0 x 0.9 cm, 1.6 x 1.5 cm, and 1.4 x 1.8 cm. Moderate mitral stenosis. Mild mitral regurgitation. 2. Mild concentric left ventricle hypertrophy. Normal regional left ventricular (LV) wall motion and wall thickening. Normal LV systolic function. Left ventricular ejection fraction (LVEF) 60% by visual estimate. 3. Moderate left atrial dilatation. 4. Suggestive of severe elevation of estimated right ventricle systolic pressure. Moderate tricuspid regurgitation. Structurally normal appearing tricuspid leaflets. Normal right ventricle size and systolic function. 5. Presence of endocardial, right atrial and right ventricle pacemaker leads. 6. No pericardial effusion. 7. Normal appearing and well-seated aortic valve bioprosthesis without apparent vegetations. No aortic regurgitation or stenosis. ADDITIONAL COMMENTS AND RECOMMENDATIONS: In view of the large size of the vegetation (more than 1.0 cm), suggest transfer to a tertiary care center that has cardiac surgery services. Recommend transesophageal echocardiogram (MARIAN). If patient is being transferred to a tertiary care center, then the MARIAN can be performed at the tertiary care center. DD: Jerry Perea MD [facility] 08/27/182299 DT: [facility] 08/27/182328 DS: SHERI 08/28/18930 <Electronically signed by Jerry Perea MD> 08/28/18930 TIME SPENT ON DISCHARGE: 32 MINUTES VS, I&O, 24H, Fishbone Vital Signs/I&O Vital Signs Date Time Temp Pulse Resp B/P (MAP) Pulse Ox O2 Delivery O2 Flow Rate FiO2 08/28/18 08:00 97.4 71 16 131/60 (83) 99 3.0 08/27/18 08:00 Nasal Cannula I&O- Last 24 Hours up to 6 AM 08/28/18 06:00 Intake Total 660 ml Output Total 0 ml Balance 660 ml Laboratory Data 24H LABS Laboratory Tests 2 08/27/18 11:25: Urine Color YELLOW, Urine Appearance HAZY, Urine pH 5.0, Urine Specific Virgil 1.015, Urine Protein 2+H, Urine Glucose (UA) 1+H, Urine Ketones NEGATIVE, Urine Blood 1+H, Urine Nitrite NEGATIVE, Urine Bilirubin NEGATIVE, Urine Urobilinogen 0.2, Urine Leukocyte Esterase TRACEH, Urine WBC (Auto) 19H, Urine RBC (Auto) 5H, Urine Hyaline Casts (Auto) 0, Urine Bacteria (Auto) 2+H, Urine Squamous Epithelial Cells 0, Urine Amorphous Sediment SMALLH, Urine Sperm (Auto) 08/27/18 13:04: Bedside Glucose (Misc Panel) 242H 08/27/18 17:32: Bedside Glucose (Misc Panel) 302H 08/27/18 21:05: Bedside Glucose (Misc Panel) 280H 08/28/18 04:59: Anion Gap 10, Glomerular Filtration Rate 10.1L, Blood Urea Nitrogen 93H, Creatinine 5.72H, Sodium Level 134L, Potassium Level 4.0, Chloride Level 98, Carbon Dioxide Level 26, Calcium Level 8.2L, Aspartate Amino Transf (AST/SGOT) 22, Alanine Aminotransferase (ALT/SGPT) 48, Alkaline Phosphatase 89, Total Bilirubin 0.6, Total Protein 6.3L, Albumin 2.2L, Magnesium Level 2.2, Albumin/Globulin Ratio 0.54L 08/28/18 05:00: Nucleated Red Blood Cells % (auto) 0.0 CBC/BMP Laboratory Tests 08/28/18 04:59 Calcium Level 8.2 L, Aspartate Amino Transf (AST/SGOT) 22, Alanine Aminotransferase (ALT/SGPT) 48, Alkaline Phosphatase 89, Total Bilirubin 0.6, Total Protein 6.3 L, Albumin 2.2 L 08/28/18 05:00 Red Blood Count 2.55 L, Mean Corpuscular Volume 101.2 H, Mean Corpuscular Hemoglobin 32.9, Mean Corpuscular Hemoglobin Concent 32.6, Red Cell Distribution Width 16.4 H Microbiology Microbiology 08/27/18 Blood Culture - Preliminary, Resulted 08/27/18 Blood Culture - Preliminary, Resulted No growth after 24 hours . All specim... 08/27/18 Urine Culture - Final, Complete VINAY ELLIOTT MD Aug 28, 2018 10:12
[2018-08-28] MEDS: ACETAMINOPHEN TAB 650MG DOSE (2X325MG) PO PRN (11:07)
[2018-08-28 13:03] VITALS: BP 127/61
[2018-08-28 13:13] VITALS: BP 127/61
[2018-08-28] MEDS: CARVedilol 6.25 MG TAB PO SCH (13:13)
[2018-08-28] MEDS: APIXABAN 2.5 MG TAB (ELIQUIS) PO SCH (13:13)
[2018-08-28] MEDS: predniSONE 10 MG TAB PO SCH (13:13)
[2018-08-28 13:21] LABS: VANCOMYCIN RANDOM 9.2 UG/ML
[2018-08-28] MEDS ORDERED: VANCOMYCIN HCL 1,000 MG, VIAL MATE ADAPTER 1 EACH in D5W 250 ML IV ONE (16:00)
--- NOTE | 2018-08-28 19:10 | CR ---
DATE OF CONSULTATION 08/27/2018 INFECTIOUS DISEASE CONSULTATION Asked to consult by Dr. August for evaluation of gram-positive cocci in clusters, bacteremia in a patient with aortic valve replacement and on hemodialysis. HISTORY OF PRESENT ILLNESS: Mr. Lee is a pleasant 87-year-old gentleman with end-stage renal disease, on hemodialysis through an arteriovenous (AV) fistula for that catheter anymore and Dr. Danielson removed the catheter. He had been experiencing since then intermittent fever, and therefore, blood cultures were obtained while the patient was at dialysis. He was called by Dr. Noguera to be admitted to the hospital because he had gram-positive cocci in clusters. He presented to emergency room. He was started on intravenous (IV) vancomycin. He was complaining of generalized tiredness but no shortness of breath. No nausea, vomiting, diarrhea. No chest pain. PAST MEDICAL HISTORY: His past medical history is significant for end-stage renal disease - on hemodialysis, aortic valve replacement, TAVR done at [facility], diabetes, prostate cancer, status post radiation. History of urticaria, followed up by Ivonne Walters, Dermatology, that has resolved. Hyperlipidemia, gouty arthritis, seasonal allergies. PAST SURGICAL HISTORY: Coronary artery bypass graft (CABG), pacemaker placement, TAVR procedure. FAMILY HISTORY: Nonrevealing. SOCIAL HISTORY: He lives in senior housing in [place]. He goes to dialysis in [place], which is a long distance for him. He does not smoke, drink or use alcohol. REVIEW OF SYSTEMS: He complained of fever and fatigue but no nausea, vomiting, diarrhea. No chest pain or shortness of breath. No rashes. No frequency, dysuria, or hematuria. He still urinates about two to three times a day in spite of dialysis. PHYSICAL EXAMINATION: On physical exam, he is a healthy looking elderly gentleman in no acute distress. Vital signs: Temperature was 101.3, pulse 74, respirations 16, blood pressure 111/55, oxygen saturation (O2 sat) 100% on 3 liters nasal cannula. Heart: Normal S1, S2 with a systolic ejection murmur 2/6 heard at the left upper sternal border. Lungs: Diminished breath sounds at the bases but clear. No wheezes, rales, or rhonchi. Abdomen: Obese, soft, nontender. Right arm arteriovenous (AV) fistula, nontender to touch. Back: No costovertebral angle (CVA) or lumbosacral tenderness. Extremities: No clubbing, cyanosis or edema. He has hyperpigmented fine papular lesions on the dorsal aspect of the feet but no petechiae. There are no acute lesions. +2 dorsalis pedis pulses. Oropharynx is clear. Pupils equal and reactive, anicteric. LABORATORY DATA: White count is 21.1, hemoglobin 9.2, hematocrit 28.4, platelets 146, 90% neutrophils, 3% lymphocytes, 2% monocytes. ESR is 106, sodium 133, potassium 4.4, chloride 96, bicarbonate 26, BUN 75, creatinine 5.13, glucose 305, calcium 8.3, iron 14, TIBC 146, iron saturation 9.6, ferritin 2600, CRP 17.6, total protein 6, albumin 2.4. Blood cultures from 08/27/2018 are positive for gram-positive cocci in clusters. Urine culture was no growth. Urinalysis had 19 white cells, [address] showed decreased bilateral pleural effusions compared to April of 2018 with bilateral lower lobe atelectatic changes, status post sternotomy and CABG. IMPRESSION: This is an 88-year-old gentleman with a history of aortic valve replacement who had removal of his hemodialysis catheter on August 17, 2018. Since then, has had intermittent fevers, is admitted with gram-positive cocci in clusters, bacteremia suggestive of Staphylococcus aureus. The patient has a valve replacement, and therefore, is at very high risk of endocarditis. The patient is scheduled to have an echocardiogram done today. PLAN: Echocardiogram STAT to rule out endocarditis. If the patient has endocarditis, he will need to be transferred to [facility]. Otherwise, if the patient has no evidence of endocarditis, he will need to be on at least 6 weeks of IV antibiotic due to the fact that he has a valve replacement and is at risk of metastatic complication from Staphylococcus aureus bacteremia. Continue IV vancomycin until results of culture identified to be staph aureus and echo findings MEDICATIONS: - vancomycin 1 gram IV with hemodialysis - Coreg 6.25 mg by mouth twice a day - Eliquis 2.5 mg by mouth twice a day - allopurinol 100 mg twice a day - Colace 100 mg twice a day - Zocor 40 mg by mouth nightly - multivitamin one tablet by mouth nightly ALLERGIES: PENICILLIN and PRASUGREL. Thank you for the consultation. SHASHANK
--- NOTE | 2018-08-29 16:53 | IPN ---
DATE: 08/28/2018 SUBJECTIVE: Patient was seen and examined at the bedside today morning during hemodialysis. He was getting the hemodialysis but during the dialysis, he was having shakes and chills. Patient has active bacteremia because of Staphylococcus epidermitis. Echocardiogram done yesterday was noted. Patient has large vegetation on the mitral valve. He has been accepted at [facility] where there is a cardiac surgery facility available. Patient is awaiting a bed. He is getting dialyzed before he is transferred. OBJECTIVE VITAL SIGNS: Temperature is 97.6 degrees Fahrenheit, blood pressure 127/61, pulse is 80, respiratory rate of 60, saturating 97% on 3 liters via nasal cannula. INTAKE AND OUTPUT: There is no urine output recorded. Weight in the bed scale is 72.5 kg. PHYSICAL EXAMINATION: GENERAL: Patient is awake, alert, oriented times three, laying in bed getting hemodialysis done, having some chills and rigors, wearing the blankets. HEAD AND NECK EXAM: Extraocular muscles intact. Pupils equally round and reactive to light. Mucous membranes are moist. Neck is supple. There is no jugular venous distention (JVD). CARDIOVASCULAR: S1, S2. Grade 1 systolic murmur. RESPIRATORY: Chest is clear to auscultation bilaterally. Bilateral equal air entry. No rales or rhonchi. ABDOMEN: Soft. Positive bowel sounds. Nontender. No organomegaly. MUSCULOSKELETAL: No clubbing or cyanosis. Pulses are 2+. Right knee prosthesis was noted. CENTRAL NERVOUS SYSTEM (RAILROAD AUDITOR): No focal deficit. Power is 5/5 in all extremities. LABORATORY REVIEW: Complete blood count (CBC) showed a WBC 17.8, hemoglobin 8.4, platelets of 102. Basic metabolic panel (BMP) showed sodium 134, potassium 4, chloride 98, bicarbonate 26, BUN 93, creatinine is 5.7, calcium 8.2, magnesium is 2.2. Albumin 2.2. Random vancomycin level was 9.2 today. MICROBIOLOGY: Blood cultures preliminary are positive for gram-positive cocci in clusters. Outpatient cultures are positive for Staphylococcus epidermidis. 2-D echocardiogram: Patient got the echocardiogram done yesterday, which showed severe mitral annular calcification, appearance of a large vegetation on the posterior mitral leaflet, which was 2 x 0.9 cm. CURRENT INPATIENT MEDICATIONS: Patient's medications were all reviewed by me. There is no change in the medications today as compared with yesterday. ASSESSMENT AND PLAN: 1. End-stage renal disease on hemodialysis. Patient is being dialyzed today according to his regular schedule. Ultrafiltration goal will be around 1.5-2 liters as tolerated by his blood pressure. 2. Staphylococcus epidermidis bacteremia. Patient's final cultures came back and patient has Staphylococcus epidermidis bacteremia, as per cultures done at dialysis center. It is sensitive to vancomycin. Continue current dose of vancomycin at this time. 3. Mitral valve infective endocarditis. Patient has a large vegetation. He has been accepted at [facility]. He will be transferred to [place] after dialysis. 4. Anemia secondary to end-stage renal disease. Patient is iron deficient as well. Intravenous (IV) iron is not being given because of active bacteremia. 5. Congestive heart failure and coronary artery disease. Continue current dose of Coreg. Volume status is being optimized with dialysis.
--- NOTE | 2018-09-28 13:01 | DS.PDOC ---
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 Cardoso Cardiothoracic Car Sales Representative: Dr. Ludwig DISCHARGE DIAGNOSES: ENDOCARDITIS -LARGE VEGETATION 2.0 x 0.9 cm, 1.6 x 1.5 cm, and 1.4 x 1.8 cm. 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 DISCHARGE MEDICATIONS: PLS SEE BELOW INPATIENT CONSULTANTS: ECHO READ BY DR. CAMARILLO, ELECTRICAL PROSPECTING ENGINEER FLEET DRIVER DR. YANEZ HISTORY OF PRESENTING ILLNESS: Patient is an 87-year-old male with a PMHx of ESRD on HD, A. fib (on Eliquis), AV replacement, CAD s/p CABG, SSS s/p PM, NIDDM2, DLP, Gout, Prostate CA s/p radiation who presented to the emergency room at the direction of neph rology because of positive blood cultures for staph aureus. Patient was admitted to hospitalist service for further evaluation and treatment. Nephrology was called in consultation. Infectious disease was called in consultation. HOSPITAL COURSE: staph aureus Endocarditis - Patient recently had a PermCath that was removed on 08/17/2018 - Patient remains hemodynamically stable and afebrile - Patient has an elevation of leukocytosis, ESR and CRP - Repeat blood cultures were acquired - Transthoracic echocardiogram: large vegetation. -Cardiology recommended transfer to tertiary center - c/w Vancomycin and Zosyn renally dosed - Infectious disease has been consulted ESRD on HD - Nephrology has been consulted A. fib - c/w rate control with carvedilol - held eliquis due to endocarditis eval for mitral valve replacement. AV replacement CAD s/p CABG SSS s/p PM NIDDM2 - c/w ISS DLP - c/w Simvastatin Gout - c/w Allopurinol Prostate CA - s/p radiation DISCHARGE PHYSICAL EXAMINATION: Vitals (See below) General: eating breakfast sitting at the bedside, no acute distress, comfortable, AAOx3 HEENT: NC, AT CVS: RRR, +S1S2, apical murmur 2/6 Lungs: Fair air entry b/l, -w/r/r Abdomen: Soft, ND, NT Extremities: - Edema, - Calf tenderness, R arm fistula - no evidence of infection LABORATORY DATA, IMAGING STUDIES, MICROBIOLOGY: Please see below. DATE OF PROCEDURE: 08/27/2018 REFERRING PHYSICIAN: Dr. Ishaan Brownlee INDICATION: Sepsis. HEIGHT: 165 cm WEIGHT: 75 kg 2D MEASUREMENTS: LVOT: 2.0 cm Left atrium: 4.9 cm Ventricular septum: 1.43 cm Posterior wall: 1.43 cm Left ventricle diastole: 4.2 cm Inferior vena cava: 2.2 cm with more than 50% respiratory variation. DOPPLER MEASUREMENTS: Aortic valve velocity: 192 cm/s LVOT velocity: 87.7 cm/s LVOT VTI: 18.0 cm Mild mitral regurgitation. Mitral E velocity (continuous wave): 233 ms Mean aortic valve gradient: 11 mmHg Mitral E velocity (pulse wave): 217 cm/s Mitral A velocity (pulse wave): 180 cm/s Mitral deceleration time (pulse wave): 408 ms Moderate tricuspid regurgitation. Estimated right ventricle systolic pressure: 65 mmHg assuming a pressure of 10 mmHg. MITRAL ANNULAR TISSUE DOPPLER: E prime septal: 3.2 cm/s E prime lateral: 3.1 cm/s DESCRIPTION: Rhythm was predominantly atrial paced. Image quality was fair. This was a 2D, M-mode, color flow Doppler and pulse wave Doppler examination and included mitral annular tissue Doppler. CONCLUSIONS: 1. Severe mitral annular calcification. Appearance of a large vegetation, which appears to be attached to the posterior mitral leaflet. Measurements of this vegetation were 2.0 x 0.9 cm, 1.6 x 1.5 cm, and 1.4 x 1.8 cm. Moderate mitral stenosis. Mild mitral regurgitation. 2. Mild concentric left ventricle hypertrophy. Normal regional left ventricular (LV) wall motion and wall thickening. Normal LV systolic function. Left ventricular ejection fraction (LVEF) 60% by visual estimate. 3. Moderate left atrial dilatation. 4. Suggestive of severe elevation of estimated right ventricle systolic pressure. Moderate tricuspid regurgitation. Structurally normal appearing tricuspid leaflets. Normal right ventricle size and systolic function. 5. Presence of endocardial, right atrial and right ventricle pacemaker leads. 6. No pericardial effusion. 7. Normal appearing and well-seated aortic valve bioprosthesis without apparent vegetations. No aortic regurgitation or stenosis. ADDITIONAL COMMENTS AND RECOMMENDATIONS: In view of the large size of the vegetation (more than 1.0 cm), suggest transfer to a tertiary care center that has cardiac surgery services. Recommend transesophageal echocardiogram (MARIAN). If patient is being transferred to a tertiary care center, then the MARIAN can be performed at the tertiary care center. DD: Jerry Perea MD [facility] 08/27/182299 DT: [facility] 08/27/182328 DS: SHERI 08/28/18930 <Electronically signed by eJrry Perea MD> 08/28/18930 TIME SPENT ON DISCHARGE: 32 MINUTES Discharge Medications Scheduled Allopurinol (Allopurinol) 100 Mg Tab, 100 MG PO BID, (Reported) Carvedilol (Carvedilol) 6.25 Mg Tablet, 6.25 MG PO BID, (Reported) Ezetimibe (Ezetimibe) 10 Mg Tab, 10 MG PO QHS, (Reported) Glipizide (Glipizide ER) 2.5 Mg Tab, 2.5 MG PO QPM, (Reported) Levocetirizine Dihydrochloride (Levocetirizine Dihydrochloride) 5 Mg Tab, 5 MG PO QHS, (Reported) Multivitamins (Thera M Plus Tablet) 1 Tab Tab, 1 TAB PO QHS, (Reported) Omeprazole (Omeprazole) 20 Mg Cap, 20 MG PO BID, (Reported) Simvastatin (Simvastatin) 40 Mg Tab, 40 MG PO QHS, (Reported) Vancomycin/0.9 % Sod Chloride (Vanco 750 mg/150 ml-0.9% NaCl) 750 Mg/150 Ml Froz.piggy, 1 INJ IV HD Vitamin B Complex (Vitamin B Complex) 1 Each Tablet, 1 TAB PO QHS, (Reported) Allergies Coded Allergies: Penicillins (Verified Allergy, Unknown, rash, 08/26/18) prasugrel (Verified Allergy, Unknown, hives, 08/26/18) VINAY ELLIOTT MD Sep 28, 2018 13:01
--- NOTE | 2018-09-28 13:02 | DS.PDOC ---
Discharge Summary General Date of Admission Aug 27, 2018 at 00:08 Date of Discharge august 28, 2018 inpatient communications consultant: infectious disease: Dr.Marylene Dsouza Discharge Summary PROCEDURES PERFORMED DURING STAY: [None]. ADMITTING DIAGNOSES: 1. . DISCHARGE DIAGNOSES: 1. . COMPLICATIONS/CHIEF COMPLAINT: Bacteremia Due To Gram Positive Bacteria. HISTORY OF PRESENT ILLNESS: . HOSPITAL COURSE: . DISCHARGE MEDICATIONS: Please see below. ALLERGIES: Please see below. PHYSICAL EXAMINATION ON DISCHARGE: VITAL SIGNS: Please see below. GENERAL: HEENT: NECK: CARDIOVASCULAR EXAMINATION: RESPIRATORY EXAMINATION: ABDOMINAL EXAMINATION: EXTREMITIES: SKIN: NEUROLOGICAL EXAMINATION: PSYCHIATRIC EXAMINATION: LABORATORY DATA: Please see below. IMAGING: PROGNOSIS: ACTIVITY: [As tolerated]. DIET: DISCHARGE PLAN: DISPOSITION: Xfer To Acute Hosp. DISCHARGE INSTRUCTIONS: 1. . ITEMS TO FOLLOWUP ON ON OUTPATIENT: 1. . DISCHARGE CONDITION: [Stable]. TIME SPENT ON DISCHARGE: Greater than minutes. Discharge Medications Scheduled Allopurinol (Allopurinol) 100 Mg Tab, 100 MG PO BID, (Reported) Carvedilol (Carvedilol) 6.25 Mg Tablet, 6.25 MG PO BID, (Reported) Ezetimibe (Ezetimibe) 10 Mg Tab, 10 MG PO QHS, (Reported) Glipizide (Glipizide ER) 2.5 Mg Tab, 2.5 MG PO QPM, (Reported) Levocetirizine Dihydrochloride (Levocetirizine Dihydrochloride) 5 Mg Tab, 5 MG PO QHS, (Reported) Multivitamins (Thera M Plus Tablet) 1 Tab Tab, 1 TAB PO QHS, (Reported) Omeprazole (Omeprazole) 20 Mg Cap, 20 MG PO BID, (Reported) Simvastatin (Simvastatin) 40 Mg Tab, 40 MG PO QHS, (Reported) Vancomycin/0.9 % Sod Chloride (Vanco 750 mg/150 ml-0.9% NaCl) 750 Mg/150 Ml Froz.piggy, 1 INJ IV HD Vitamin B Complex (Vitamin B Complex) 1 Each Tablet, 1 TAB PO QHS, (Reported) Allergies Coded Allergies: Penicillins (Verified Allergy, Unknown, rash, 08/26/18) prasugrel (Verified Allergy, Unknown, hives, 08/26/18) VINAY ELLIOTT MD Sep 28, 2018 13:02
== END 2018-08-28 13:49 | disposition short-term general hospital (02) | DRG 288 ==
LOC: M ED 21:02 → M ED INP 08-27 00:08 → M PCU 08-27 17:07
PROVIDERS: ADMIT Internal Medicine; ATTEND General Practice
DX: I33.0 Acute and subacute infective endocarditis (principal); N18.6 End stage renal disease; I50.22 Chronic systolic (congestive) heart failure; R78.81 Bacteremia; I34.0 Nonrheumatic mitral (valve) insufficiency; E78.5 Hyperlipidemia, unspecified; I25.10 Atherosclerotic heart disease of native coronary artery without angina pectoris; M10.30 Gout due to renal impairment, unspecified site; Z85.46 Personal history of malignant neoplasm of prostate; E11.9 Type 2 diabetes mellitus without complications; Z95.2 Presence of prosthetic heart valve; I48.2 Chronic atrial fibrillation; Z79.01 Long term (current) use of anticoagulants; Z95.1 Presence of aortocoronary bypass graft; Z79.899 Other long term (current) drug therapy; Z88.0 Allergy status to penicillin; Z88.8 Allergy status to other drugs, medicaments and biological substances; Z95.0 Presence of cardiac pacemaker; Z79.52 Long term (current) use of systemic steroids; D63.1 Anemia in chronic kidney disease; B95.62 Methicillin resistant Staphylococcus aureus infection as the cause of diseases classified elsewhere